=== PATIENT | female | born 1950 | race Caucasian/White ===

== ENCOUNTER 2017-03-30 02:40 | Inpatient (IN) ==
[2017-03-30] MEDS ORDERED: Ondansetron 4 MG/2 ML VIAL IVP ONE ×2 (02:58→05:45)
[2017-03-30] MEDS ORDERED: 0.9 % Sodium Chloride 1,000 ML IVC ONE ×2 (02:58→04:11)
[2017-03-30] MEDS ORDERED: *HR* HYDROmorphone (PF) 1 MG/ML SYRINGE IVP ONE ×2 (03:38→04:06)
[2017-03-30 03:42] LABS: Basophils # 0.1 K/mcL (0.0-0.2); Basophils % 0.4 %; Eosinophils # 0.2 K/mcL (0.0-0.6); Eosinophils % 1.3 %; Hematocrit 36.5 % (35.3-44.9); Hemoglobin 11.5 g/dL (11.5-15.4); Immature Granulocytes % 0.5 % (0-4); Lymphocytes # 0.7 K/mcL (0.6-4.6); Lymphocytes % 5.5 %; Mean Corpuscular HGB Conc 31.5 g/dL (31.6-35.5); Mean Corpuscular Hemoglobin 28.3 pg (28.0-33.3); Mean Corpuscular Volume 89.7 fL (83.0-100.0); Mean Platelet Volume 9.3 fL (9.4-12.4); Monocytes # 0.9 K/mcL (0.0-1.3); Neutrophils # 10.8 K/mcL (1.6-8.9); Platelet Count 387 K/mcL (140-400); Red Blood Count 4.07 M/mcL (3.82-4.97); Red Cell Distribution Width 13.9 % (11.5-14.5); Segmented Neutrophils % 85.3 %
[2017-03-30 03:54] LABS: Albumin 3.6 g/dL (3.5-5.0); Albumin/Globulin Ratio 0.9 (1.1-2.2); Bilirubin,Direct 0.2 mg/dL (0.0-0.5); Bilirubin,Indirect 0.4 mg/dL (0.0-1.2); Bilirubin,Total 0.6 mg/dL (0.2-1.2); Calcium 9.7 mg/dL (8.6-10.8); Potassium 4.5 mEq/L (3.5-4.5); Total Protein 7.6 g/dL (6.0-8.3)
--- NOTE | 2017-03-30 04:13 | Emergency Department Note ---
Disposition Clinical Impression: Sigmoid diverticulitis Disposition: Admitted As Inpatient Time of Disposition: 05:48 Abdominal Pain HPI - General Chief Complaint: ED Abdominal Pain Stated Complaint: diverticulitis was at [place] earlier Time Seen by Provider: 03/30/17 02:56 Source: patient Nursing Notes Reviewed: Yes Vital Signs Reviewed: Yes - History of Present Illness HPI Narrative: Patient has a past medical history of perforated diverticulitis, hypertension, hyperlipidemia, diabetes, cholecystectomy, partial hysterectomy presents to the emergency department with a few day history of worsening left lower quadrant pain that feels worse than her normal diverticulitis. She states that she has been very nauseous and has vomited some. Pt Subjective Complaint: abdominal pain Onset (ago): day(s) (2) Consistency: constant Location: LLQ, L flank Pain Severity: severe Pain Scale: 10 Quality: stabbing Migration to: L flank Improves with: nothing Worsens with: nothing Associated symptoms: Reports: nausea, vomiting - Related Data Home Medications Medication Instructions Recorded Confirmed Aspirin 81 mg PO DAILY 03/15/15 03/29/17 ClonazePAM [Klonopin] 1 mg PO BID 03/15/15 03/29/17 FLUoxetine HCl [PROzac] 40 mg PO DAILY 03/15/15 03/29/17 Fenofibrate [Tricor] 54 mg PO DAILY 03/15/15 03/29/17 Isosorbide MONOnitrate [Isosorbide 30 mg PO DAILY 03/15/15 03/29/17 Mononitrate] Levothyroxine [Synthroid] 150 mcg PO DAILY 03/15/15 03/29/17 Lisinopril [Zestril] 20 mg PO DAILY 03/15/15 03/29/17 Mesalamine [Pentasa] 1,000 mg PO QID 03/15/15 03/29/17 Metoprolol [Lopressor] 25 mg PO BID 03/15/15 03/29/17 Pantoprazole Sodium [Protonix] 40 mg PO DAILY 03/15/15 03/29/17 hydroCHLOROthiazide 25 mg PO DAILY 03/15/15 03/29/17 [Hydrochlorothiazide] Previous Rx's Medication Instructions Recorded Ciprofloxacin HCl [Cipro] 500 mg PO BID #20 tablet 03/29/17 HYDROcodone/Acet 5/325 mg [[place] 1 tab PO Q6H PRN #10 tab 03/29/17 5-325 mg] Ondansetron HCl [Zofran] 4 mg PO Q6HR PRN #8 tablet 03/29/17 Polyethylene Glycol 3350 [MiraLAX 1 scoop PO DAILY #510 gm 03/29/17 Powder Bulk 17.9 Oz] metroNIDAZOLE [Metronidazole] 500 mg PO TID #30 tablet 03/29/17 Allergies Allergy/AdvReac Type Severity Reaction Status Date / Time atorvastatin [From Lipitor] AdvReac See Verified 03/30/17 02:49 Comments All systems ED: reviewed and negative except as stated. Constitutional: Denies: fever, chills Cardiovascular: Reports: chest pain Respiratory: Denies: cough, dyspnea, wheezes Gastrointestinal: Reports: abdominal pain, nausea Genitourinary: Reports: frequency. Denies: urgency, dysuria, hematuria Musculoskeletal: Reports: back pain Integumentary: Denies: rash Abdominal Pain PMH - Past Medical History Medical history: Reports: arthritis, coronary artery disease, diabetes, hyperlipidemia, hypertension, myocardial infarction, thyroid disease, other Female Surgical History: Reports: cholecystectomy, hysterectomy, Tonsillectomy ACQUISITION ADVISOR history: Reports: no ACQUISITION ADVISOR history Psychiatric history: Reports: anxiety, depression - Social History Smoking status: Former smoker Alcohol use: Reports: none Drug use: Reports: none Physical Exam - General General appearance: alert, in no apparent distress - Head Head exam: atraumatic, normocephalic, normal inspection - Eye Eye exam: Absent: scleral icterus, conjunctival injection - ENT ENT exam: mucous membranes dry - Neck Neck exam: Present: trachea midline. Absent: tenderness, meningismus - Chest Chest inspection: Present: normal inspection, symmetric chest wall rise - Respiratory Respiratory exam: Present: normal lung sounds bilaterally. Absent: respiratory distress, accessory muscle use - Cardiovascular Cardiovascular exam: Present: regular rate, normal rhythm, normal heart sounds - Abdominal Exam Abdominal exam: Present: soft, tenderness Abdominal tenderness: Present: LLQ, moderate - Extremities Exam Extremities exam: Present: normal capillary refill - Neurological Exam Neurological exam: Present: alert, oriented X3 - Psychiatric Psychiatric exam: Present: normal affect, normal mood Course Course Narrative: This is a 66-year-old female who presents to the emergency department with pain that feels like her diverticulitis. She states that this is the most severe it has ever been before. At this time, there is concern for possible perforation since patient has had a perforation of her diverticulitis before. Patient is currently hemodynamically stable at this time. We will obtain a CT scan of the abdomen and pelvis. A CBC and BMP have been obtained. Also perform an EKG and obtain a troponin on this patient. - Reevaluation(s) Reevaluation #1: Patient has a leukocytosis 13.5. Her CT scan reveals sigmoid diverticulitis. At this time, because this patient failed outpatient management I think it is best to bring her in for intravenous antibiotics. Patient still having tenderness of her abdomen and severe pain. I will give her 4 more milligrams of IV morphine. She is having some nausea I will give her 4 more Zofran. I discussed the management of hospital admission with this patient and she agrees with the plan. Hospitalist has accepted this patient's admission. The patient is currently hemodynamically stable at this time. Abdomen/Pelvis CT 03/30/17 04:10 IMPRESSION: 1. Acute sigmoid diverticulitis. D/ / Tanner Arenas MD / Tanner Arenas MD Interpreting Provider: Tanner Arenas MD Chest X-Ray 03/30/17 04:15 IMPRESSION: 1. No acute cardiopulmonary disease. D/ / Tanner Arenas MD / Tanner Arenas MD Interpreting Provider: Tanner Arenas MD Vital Signs Temperature 98.2 F 03/30/17 02:44 Pulse Rate 85 03/30/17 02:44 Respiratory Rate 18 03/30/17 02:44 Blood Pressure 113/65 03/30/17 02:44 O2 Sat by Pulse Oximetry 03/30/17 02:44 Temperature 98.2 F 03/30/17 02:44 Pulse Rate 85 03/30/17 02:44 Respiratory Rate 18 03/30/17 02:44 Blood Pressure 113/65 03/30/17 02:44 O2 Sat by Pulse Oximetry 98 03/30/17 02:44 Oxygen Delivery Oxygen Delivery Room Air Time: 05:46 Vital Signs Temperature 98.2 F 03/30/17 02:44 Pulse Rate 85 03/30/17 02:44 Respiratory Rate 18 03/30/17 02:44 Blood Pressure 113/65 03/30/17 02:44 O2 Sat by Pulse Oximetry 98 03/30/17 02:44 Temperature 98.2 F 03/30/17 02:44 Pulse Rate 85 03/30/17 02:44 Respiratory Rate 18 03/30/17 02:44 Blood Pressure 113/65 03/30/17 02:44 O2 Sat by Pulse Oximetry 98 03/30/17 02:44 Oxygen Delivery Oxygen Delivery Room Air Abdominal Pain - Medical Records Medical records reviewed: Yes I reviewed the patient's medical records. - Lab Data Lab results reviewed: Yes I reviewed the patient's lab results. Result diagrams: 03/30/17 03:35 03/30/17 03:35 Lab Results 03/30/17 03/30/17 03/30/17 Range/Units 03:35 03:35 03:35 WBC 12.6 H (4.3-11.1) K/mcL RBC 4.07 (3.82-4.97) M/mcL Hgb 11.5 (11.5-15.4) g/dL Hct 36.5 (35.3-44.9) % MCV 89.7 (83.0-100.0) fL MCH 28.3 (28.0-33.3) pg MCHC 31.5 L (31.6-35.5) g/dL RDW 13.9 (11.5-14.5) % Plt Count 387 (140-400) K/mcL MPV 9.3 L (9.4-12.4) fL Immature Gran % 0.5 (0-4) % Seg Neutrophils % 85.3 % Lymphocytes % 5.5 % Monocytes % 7.0 % Eosinophils % 1.3 % Basophils % 0.4 % Neutrophils # 10.8 H (1.6-8.9) K/mcL Lymphocytes # 0.7 (0.6-4.6) K/mcL Monocytes # 0.9 (0.0-1.3) K/mcL Eosinophils # 0.2 (0.0-0.6) K/mcL Basophils # 0.1 (0.0-0.2) K/mcL Sodium 138 (136-145) mEq/L Potassium 4.5 (3.5-4.5) mEq/L Chloride 103 (98-109) mEq/L Carbon Dioxide 26 (19-29) mEq/L BUN 27 H (7-20) mg/dL Creatinine 1.57 H (0.57-1.11) mg/dL Est GFR ( Amer) 40 L (> 60) Est GFR (Non-Af Amer) 33 L (> 60) BUN/Creatinine Ratio 17 (6-26) Glucose 184 H (70-99) mg/dL Calculated Osmolality 296 (280-300) Calcium 9.7 (8.6-10.8) mg/dL Total Bilirubin 0.6 (0.2-1.2) mg/dL Direct Bilirubin 0.2 (0.0-0.5) mg/dL Indirect Bilirubin 0.4 (0.0-1.2) mg/dL AST 26 (5-34) Units/L ALT 22 (0-55) Units/L Alkaline Phosphatase 64 (38-126) Units/L Troponin I 0.01 (0-0.03) ng/mL Serum Total Protein 7.6 (6.0-8.3) g/dL Albumin 3.6 (3.5-5.0) g/dL Globulin 4.0 H (2.4-3.5) g/dL Albumin/Globulin Ratio 0.9 L (1.1-2.2) Lipase 42 (8-78) Units/L - Radiology Data Radiology results reviewed: Yes I reviewed the patient's radiology results. - EKG Data EKG attestation: Yes I reviewed and interpreted this EKG. EKG results narrative: 03/30/2017 5:01 Ventricular rate 79 bpm, WA interval 181 ms, QRS duration 89 ms, QT 397 ms, QTC 432 ms, normal axis. Sinus rhythm with a ventricular rate of 79 bpm. There are no signs of ischemic ST changes when compared to an EKG performed on 03/15/2015. Attestation Statement - Attestation Attestation: I, Guido Felton MD, personally evaluated this patient and discussed their management with the resident physician. I reviewed the resident's note and agree with the documented findings, medical decision making, and plan of care. 66-year-old female presents to the emergency department with a complaint of left -sided abdominal pain secondary to diverticulitis. She has a prior history of diverticulitis including a perforation. She complains of left abdominal pain which started a few days ago. She was seen yesterday at [place] emergency department and had lab work. She did not have a CT scan that was diagnosed with diverticulitis clinically. She was started on Cipro and Flagyl. She presents here tonight complaining of increased pain. Nausea but no vomiting. No diarrhea. No GI bleed. Subjective fever. Patient states this is the worst episode of pain she has ever had with her diverticulitis. On examination patient is a well-developed obese elderly female in no acute distress. She is alert and oriented 3. There is no cyanosis or diaphoresis. Patient does appear to be in moderate discomfort. Breath sounds are clear and equal bilaterally. Heart regular rate and rhythm. Soft with normal bowel sounds. There is moderate left-sided abdominal tenderness. Mild guarding. No rebound tenderness. No CVA tenderness. Labs reviewed. WBC increased from yesterday. CT shows acute sigmoid diverticulitis. The hospitalist, Dr. Novoa, was consulted and accepted admission of the patient.
[2017-03-30] MEDS ORDERED: MetroNIDAZOLE 500 MG/100 ML 500 MG/100 ML BAG IVPB ONE (05:12)
[2017-03-30] MEDS ORDERED: *HR* Morphine 2 MG/ML SYRINGE IVP ONE (05:45)
[2017-03-30 06:06] LABS: Bilirubin,Urine Negative (Negative); Blood,Urine Negative (Negative); Clarity,Urine Clear (Clear); Color,Urine Dark Yellow (Yellow); Glucose,Urine (UA) Normal (Normal); Ketones,Urine Negative (Negative); Leukocyte Esterase,Urine Trace (Negative); Nitrite,Urine Negative (Negative); PH,Urine 5.5 pH Units (5.0-8.0); Protein,Urine Negative (Neg-Trace); Specific Gravity,Urine 1.023 (1.010-1.025); Urobilinogen,Urine Normal (Normal)
[2017-03-30 06:07] LABS: Bacteria,Urine None Seen per hpf (None-Few); Hyaline Casts,Urine None Seen per lpf (None-Few); RBC,Urine 0-3 per hpf (0-3); Squamous Epithelial Cell,Urine Many per lpf (None-Few); WBC,Urine 0-3 per hpf (0-3)
[2017-03-30] MEDS ORDERED: Ondansetron 4 MG/2 ML VIAL IVP PRN (08:22)
[2017-03-30] MEDS ORDERED: Naloxone 0.4 MG/ML INJ IVP PRN (08:22)
[2017-03-30] MEDS ORDERED: 0.9 % Sodium Chloride 1,000 ML IVC SCH (08:30)
[2017-03-30] MEDS: *HR* Morphine 2 MG/ML SYRINGE IVP PRN ×2 (09:45→15:38)
--- NOTE | 2017-03-30 10:25 | Internal Med History&Physical ---
Date of Encounter: 03/30/17 Time of Encounter: 08:00 Assessment and Plan (1) Sigmoid diverticulitis Current visit: Yes Status: Acute Patient Shadi 1 of IV Cipro and IV Flagyl. Pain control as needed. Nothing by mouth for now. 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: without prison use Qualified Code(s): E11.9 - Type 2 diabetes mellitus without complications (3) Crohns disease Current visit: Yes Status: Acute On chronic mesalamine therapy Qualifiers: Gastrointestinal tract location: unspecified location Digestive disease complication type: unspecified complication Qualified Code(s): K50.919 - Crohn 's disease, unspecified, with unspecified complications (4) Hypertension Current visit: Yes Status: Acute Stable, monitored Qualifiers: Hypertension type: essential hypertension Qualified Code(s): I10 - Essential (primary) hypertension (5) Hypothyroidism Current visit: Yes Status: Acute Continue Synthroid Qualifiers: Hypothyroidism type: unspecified Qualified Code(s): E03.9 - Hypothyroidism , unspecified Internal Medicine - H&P: HPI Admitted From: Emergency Dept Plans for Post Hospital Care: Home History of present illness: Ms. Marks is a 66 year old female with a past medical history of recurrent sigmoid diverticulitis, history of per. Last episode 3 months ago. Managed as outpatient. She also has a history of Crohn's disease for which she is on mesalamine, followed by . Patient also has a history of coronary disease , diabetes mellitus type 2, hypertension, hyperlipidemia, hypothyroidism. Patient presents with a 1 day history of left lower quadrant pain consistent with previous episodes of diverticulitis. She denies any fevers or chills. No chest pain or shortness of breath. She has had some nausea but no vomiting. She had 2 loose stools yesterday. She presented to the emergency department where she was noted to be hemodynamically stable and afebrile. White blood cell count elevated at 12.6. BUN/creatinine of 27 over 1.57. She had markedly tenderness in the left lower quadrant. CT scan consistent with sigmoid diverticulitis. Past Med Surg Social Fam HX - Past Medical History Medical history: arthritis, coronary artery disease, diabetes, hyperlipidemia, hypertension, myocardial infarction, thyroid disease, other Psychiatric history: anxiety, depression - Past Surgical History Surgical History: cholecystectomy, hysterectomy - Social History Smoking Status: Former smoker Packs per day: Quit 25 years ago Smokeless Tobacco Status: No Alcohol use: none Drug use: none Current living situation: Home Activity Level: Independent ambulation Recent Out of Country Travel Within the Last 8 Weeks: No Exposure or Possible Exposure to Illness During Travel: No Internal Medicine - H&P: Meds Aspirin 81 mg PO DAILY 03/15/15 [History] ClonazePAM [Klonopin] 1 mg PO BID 03/15/15 [History] FLUoxetine HCl [PROzac] 40 mg PO DAILY 03/15/15 [History] Fenofibrate [Tricor] 54 mg PO DAILY 03/15/15 [History] Isosorbide MONOnitrate [Isosorbide Mononitrate] 30 mg PO DAILY 03/15/15 [History ] Levothyroxine [Synthroid] 150 mcg PO DAILY 03/15/15 [History] Lisinopril [Zestril] 20 mg PO DAILY 03/15/15 [History] Mesalamine [Pentasa] 1,000 mg PO QID 03/15/15 [History] Metoprolol [Lopressor] 25 mg PO BID 03/15/15 [History] Pantoprazole Sodium [Protonix] 40 mg PO DAILY 03/15/15 [History] hydroCHLOROthiazide [Hydrochlorothiazide] 25 mg PO DAILY 03/15/15 [History] Ciprofloxacin HCl [Cipro] 500 mg PO BID #20 tablet 03/29/17 [Rx] HYDROcodone/Acet 5/325 mg [[place] 5-325 mg] 1 tab PO Q6H PRN #10 tab 03/29/17 [Rx ] Ondansetron HCl [Zofran] 4 mg PO Q6HR PRN #8 tablet 03/29/17 [Rx] Polyethylene Glycol 3350 [MiraLAX Powder Bulk 17.9 Oz] 1 scoop PO DAILY #510 gm 03/29/17 [Rx] metroNIDAZOLE [Metronidazole] 500 mg PO TID #30 tablet 03/29/17 [Rx] 3 Allergy/AdvReac Type Severity Reaction Status Date / Time atorvastatin [From Lipitor] AdvReac See Verified 03/30/17 02:49 Comments All Systems PM: A 10-system review of systems was performed and is negative for pertinent findings except as documented above in the HPI. - Constitutional Vitals: Temp Pulse Resp BP Pulse Ox 99.1 F 77 15 134/69 92 03/30/17 07:21 03/30/17 07:21 03/30/17 07:21 03/30/17 07:21 03/30/17 07:59 General appearance: Present: A&O X 3, no acute distress - Head Head exam: Present: atraumatic, normocephalic - Eye Eye exam: Present: PERRL, conjuntiva pink, sclera anicteric Pupils: Present: PERRL - Neck Neck exam general surgery: Present: supple, trachea midline. Absent: lymphadenopathy - Respiratory Respiratory exam: Present: CTAB. Absent: accessory muscle use, rales, rhonchi, wheezes - Cardiovascular Cardiovascular exam: Present: RRR, +S1, +S2. Absent: diastolic murmur, gallop, rubs, systolic murmur - GI/Abdominal GI/Abdominal exam: Present: normal bowel sounds, soft, tenderness (Patient with exquisite tenderness in the left lower quadrant). Absent: distended - Extremities Exam Extremities exam: Present: warm, radial pulses palpable and symmetrical. Absent : calf tenderness, cyanotic, pedal edema - Neurological Exam Neurological exam: Present: CN II-XII intact, oriented X3, no focal deficits. Absent: pronater drift, facial droop, speech deficit - Skin Skin exam: Present: dry, intact Internal Med - H&P Results - Labs CBC & Chem 7: 03/30/17 03:35 03/30/17 03:35
[2017-03-30] MEDS ORDERED: Dextrose Gel 15 GM PO PRN ×2 (10:36)
[2017-03-30] MEDS ORDERED: *HR* Dextrose 50 % in Water (Syg) 50 ML SYRINGE IVP PRN (10:36)
[2017-03-30] MEDS ORDERED: D5% in Water 1,000 ML IVC PRN (10:36)
[2017-03-30] MEDS ORDERED: Ondansetron 4 MG/2 ML VIAL IM STA (10:44)
--- NOTE | 2017-03-30 10:44 | Gastroenterology Consult Note ---
<Iona Chakraborty - Last Filed: 03/30/17 11:14> Date of Encounter: 03/30/17 Time of Encounter: 10:49 - Assessment and plan (1) Sigmoid diverticulitis Status: Acute Assessment and plan: CT A/P consistent with sigmoid diverticulitis. Patient has had a total of about 4-5 episodes of diverticulitis Her last episode was 3 months ago. Plan: continue IV hydration and pain management per primary team. continue conservative management at this time with cipro and flagyl. patient will need outpatient follow up with Dr. Mendoza for further colonoscopy and possible referral to surgery. (2) Abdominal pain Status: Acute Assessment and plan: plan as above. Qualifiers: Abdominal location: left lower quadrant Qualified Code(s): R10.32 - Left lower quadrant pain (3) Crohns disease Status: Acute Assessment and plan: folllows with Dr. Mendoza outpatient. Patient takes Mesalamine at home. Colonoscopy 04/26/15, showed two small ulcers 1-2 mm in size in cecum and on on the other side of the IC valve. Few scattered small ulcers in the TI. Biopsy of the TI showed chronic mild active ileitis. Biopsy of the ileocecal valve as well as cecum, showed mild active colitis. Qualifiers: Gastrointestinal tract location: unspecified location Digestive disease complication type: unspecified complication Qualified Code(s): K50.919 - Crohn 's disease, unspecified, with unspecified complications - Time Spent With Patient Total time spent is greater than 50% in coordination of care (as documented) at patient's floor/unit and/or counseling patient: GI History of Present Illness - Data of Consult Patient: known to practice within the last 3 years Consult date: 03/30/17 Requesting Physician: Crystal Murphy MD - Consult Narrative Reason for consult: diverticulitis. History of present illness: Ms. Marks is a 66 year old female with PMHx of recurrent sigmoid diverticulitis with history of perforation, chrons disease (follows with Dr. Mendoza ), CAD, DMII, HTN, HLD, hypothyroidism. karon arrived to [facility] with chief complaint of LLQ pain radiating to the lower back that is very similar in character to her prior episodes of diverticulitis. she also reports associated nausea without vomiting. she admits to two episodes of diarrhea yesterday. no blood in her urine or stool, no melena. she admits to mild chest pain, denies shortness of breath, fever, chills. she had about 4-5 total episodes of diverticulitis throughout her life. Her episode of diverticulitis with perforation was about 1 year ago but she did not have any surgery done at that time and was managed conservatively. Past Med Surg Social Fam HX - Past Medical History Medical history: arthritis, coronary artery disease, diabetes, hyperlipidemia, hypertension, myocardial infarction, thyroid disease, other Psychiatric history: anxiety, depression - Past Surgical History Surgical History: cholecystectomy, hysterectomy - Social History Smoking Status: Former smoker Packs per day: Quit 25 years ago Smokeless Tobacco Status: No Alcohol use: none Drug use: none All systems PM: reviewed and no additional remarkable complaints except as stated - Constitutional Vitals: Temp Pulse Resp BP Pulse Ox 99.1 F 77 15 134/69 92 03/30/17 07:21 03/30/17 07:21 03/30/17 07:21 03/30/17 07:21 03/30/17 07:59 General appearance: Present: mild distress, A&O X 3, pleasant, answers questions appropriately - Head Head exam: Present: atraumatic, normocephalic - Neck Neck exam general surgery: Present: supple, trachea midline - Respiratory Respiratory exam: Present: CTAB - Cardiovascular Cardiovascular exam: Present: RRR, +S1, +S2 - GI/Abdominal GI/Abdominal exam: Present: distended, soft, tenderness Additional comments: severe left lower quadrant tenderness to palpation. - Extremities Exam Extremities exam: Absent: cyanotic, pedal edema - Neurological Exam Neurological exam: Present: alert, oriented X3, no focal deficits - Psychiatric Psychiatric exam: Present: normal affect, normal mood Results - Labs CBC & Chem 7: 03/30/17 03:35 03/30/17 03:35 Labs: Last Result Calcium 9.7 mg/dL (8.6-10.8) 03/30/17 03:35 Troponin I 0.01 ng/mL (0-0.03) 03/30/17 03:35 Entire Visit Hgb 11.5 g/dL (11.5-15.4) 03/30/17 03:35 Hct 36.5 % (35.3-44.9) 03/30/17 03:35 Total Bilirubin 0.6 mg/dL (0.2-1.2) 03/30/17 03:35 AST 26 Units/L (5-34) 03/30/17 03:35 ALT 22 Units/L (0-55) 03/30/17 03:35 Lipase 42 Units/L (8-78) 03/30/17 03:35 Consult Discharge Plan - Plan Instructions: Ciprofloxacin (By mouth), Metronidazole (By mouth) Additional Instructions: F/up with PCP in 1-2 weeks F/up with /[facility] in 3-4 weeks Referrals: Lakisha James, FRAMING SPECIALIST [Non-Partnered Physician] - 04/09/17 10:30 am NONE,PCP [Primary Care Provider] - Prescriptions: Ciprofloxacin HCl [Cipro] 500 mg PO BID #20 tablet metroNIDAZOLE [Metronidazole] 500 mg PO TID #30 tablet <Foster Bautista - Last Filed: 04/09/17 16:07> Date of Encounter: 04/09/17 - Time Spent With Patient Total time spent is greater than 50% in coordination of care (as documented) at patient's floor/unit and/or counseling patient: GI History of Present Illness - Data of Consult Requesting Physician: Meredith Martínez MD - Consult Narrative History of present illness: Ms. Marks is a 66 year old female - Constitutional Vitals: Temp Pulse Resp BP Pulse Ox 97.9 F 55 16 123/57 93 04/03/17 11:30 04/03/17 11:30 04/03/17 11:30 04/03/17 11:30 04/03/17 11:30 Results - Labs CBC & Chem 7: 04/03/17 05:56 04/03/17 05:56 Labs: Last Result Calcium 9.5 mg/dL (8.6-10.8) 04/03/17 05:56 Troponin I 0.01 ng/mL (0-0.03) 03/30/17 03:35 Entire Visit Hgb 10.4 g/dL (11.5-15.4) L 04/03/17 05:56 Hct 32.5 % (35.3-44.9) L 04/03/17 05:56 Total Bilirubin 0.6 mg/dL (0.2-1.2) 03/30/17 03:35 AST 26 Units/L (5-34) 03/30/17 03:35 ALT 22 Units/L (0-55) 03/30/17 03:35 Lipase 42 Units/L (8-78) 03/30/17 03:35 - Attending Attestation I have personally examined and interviewed Ms. Marks and agree with above assessment. Patient has acute uncomplicated acute diverticulitis. She has had 5 episodes in the last 2 years and discussed with her regarding possibility of a limited sigmoid resection after she returns for a colonoscopy with us.
[2017-03-30] MEDS: 0.9 % Sodium Chloride 1,000 ML IVC SCH ×2 (12:28→22:18)
[2017-03-30] MEDS: *HR* HYDROmorphone (PF) 1 MG/ML SYRINGE IVP PRN ×2 (13:04→22:18)
[2017-03-30] MEDS: Insulin LISPRO 300 UNITS/3 ML VIAL SQ SCH ×2 (13:11→18:15)
[2017-03-30] MEDS: Mesalamine 250 MG CAPSULE.ER PO SCH ×3 (13:15→22:12)
[2017-03-30] MEDS: MetroNIDAZOLE 500 MG/100 ML 500 MG/100 ML BAG IVPB SCH ×2 (14:14→22:12)
[2017-03-30] MEDS: Ondansetron 4 MG/2 ML VIAL IVP PRN (19:36)
[2017-03-30] MEDS: clonazePAM 1 MG TABLET PO SCH (22:12)
[2017-03-31] MEDS: Insulin LISPRO 300 UNITS/3 ML VIAL SQ SCH ×5 (00:46→21:13)
[2017-03-31] MEDS: *HR* HYDROmorphone (PF) 1 MG/ML SYRINGE IVP PRN ×2 (03:06→23:16)
[2017-03-31] MEDS: Ondansetron 4 MG/2 ML VIAL IVP PRN ×2 (03:06→09:47)
[2017-03-31 04:06] LABS: Basophils % 0.3 %; Eosinophils # 0.2 K/mcL (0.0-0.6); Eosinophils % 1.8 %; Hemoglobin 10.2 g/dL (11.5-15.4); Immature Granulocytes % 0.4 % (0-4); Lymphocytes % 10.8 %; Mean Corpuscular HGB Conc 30.9 g/dL (31.6-35.5); Mean Corpuscular Hemoglobin 27.7 pg (28.0-33.3); Mean Corpuscular Volume 89.7 fL (83.0-100.0); Mean Platelet Volume 9.6 fL (9.4-12.4); Monocytes # 0.9 K/mcL (0.0-1.3); Monocytes % 9.7 %; Neutrophils # 7.3 K/mcL (1.6-8.9); Platelet Count 352 K/mcL (140-400); Red Blood Count 3.68 M/mcL (3.82-4.97); Red Cell Distribution Width 13.7 % (11.5-14.5)
[2017-03-31 04:21] LABS: Calcium 8.7 mg/dL (8.6-10.8); Potassium 4.2 mEq/L (3.5-4.5)
[2017-03-31] MEDS: MetroNIDAZOLE 500 MG/100 ML 500 MG/100 ML BAG IVPB SCH ×3 (05:50→21:17)
[2017-03-31] MEDS ORDERED: Polyethylene Glycol 3350 255 GM POWDER PO SCH (09:00)
[2017-03-31] MEDS: *HR* Morphine 2 MG/ML SYRINGE IVP PRN ×2 (09:50→14:23)
[2017-03-31] MEDS: 0.9 % Sodium Chloride 1,000 ML IVC SCH (09:52)
[2017-03-31 09:54] LABS: Hemoglobin A1C 7.2 %
[2017-03-31] MEDS: FLUoxetine 20 MG CAPSULE PO SCH (11:47)
[2017-03-31] MEDS: Fenofibrate 54 MG TABLET PO SCH (11:47)
[2017-03-31] MEDS: Mesalamine 250 MG CAPSULE.ER PO SCH ×4 (11:47→21:05)
[2017-03-31] MEDS: clonazePAM 1 MG TABLET PO SCH ×2 (11:47→21:05)
[2017-03-31] MEDS: Isosorbide MONOnitrate (24 HR) 30 MG TAB.ER.24H PO SCH (11:47)
[2017-03-31] MEDS: Aspirin 81 MG TAB.CHEW PO SCH (11:48)
[2017-03-31] MEDS ORDERED: 0.9 % Sodium Chloride 1,000 ML IVC SCH (14:35)
--- NOTE | 2017-03-31 14:39 | Internal Med Progress Note ---
Date of Encounter: 03/31/17 Time of Encounter: 14:36 - Assessment and plan (1) Sigmoid diverticulitis Current Visit: Yes Status: Acute Assessment and plan: Abd pain secondary to acute diverticulitis continue IV abx iV fluids with caution given history of CHF pain control will start with clear liquid diet GI consultation appreciated-outpatient follow up recommended (2) UTI (urinary tract infection) Current Visit: Yes Status: Acute Assessment and plan: Urine culture preliminary positive for gram negative yves will continue IV abx will follow up official culture report. Qualifiers: Urinary tract infection type: site unspecified Hematuria presence: without hematuria Qualified Code(s): N39.0 - Urinary tract infection, site not specified (3) Pdesu-gv-igmnoaa kidney injury Current Visit: Yes Status: Acute Assessment and plan: Renal function improved from previous day continue to hold lisinopril and hydrochlorothiazide avoid nephrotoxic agents will closely monitor renal function Qualifiers: Acute renal failure type: unspecified Chronic kidney disease stage: unspecified stage Qualified Code(s): N17.9 - Acute kidney failure, unspecified ; N18.9 - Chronic kidney disease, unspecified (4) CHF (congestive heart failure) Current Visit: Yes Status: Acute Assessment and plan: no signs of acute exacerbation will closely monitor for volume overload continue home medications Qualifiers: Congestive heart failure type: diastolic Congestive heart failure chronicity: chronic Qualified Code(s): I50.32 - Chronic diastolic (congestive ) heart failure (5) Crohns disease Current Visit: Yes Status: Chronic Assessment and plan: continue home medications Qualifiers: Gastrointestinal tract location: unspecified location Digestive disease complication type: unspecified complication Qualified Code(s): K50.919 - Crohn 's disease, unspecified, with unspecified complications (6) Hypertension Current Visit: Yes Status: Chronic Assessment and plan: BP within acceptable range despite holding Lisinopril and HCTZ continue Metoprolol will continue to closely monitor BP Qualifiers: Hypertension type: essential hypertension Qualified Code(s): I10 - Essential (primary) hypertension (7) Hypothyroidism Current Visit: Yes Status: Chronic Assessment and plan: continue home dose of levothyroxine Qualifiers: Hypothyroidism type: unspecified Qualified Code(s): E03.9 - Hypothyroidism , unspecified (8) DVT prophylaxis Current Visit: Yes Status: Acute Assessment and plan: Heparin SQ (9) Morbid obesity with BMI of 40.0-44.9, adult Current Visit: Yes Status: Acute - Subjective Interval history: Patient seen and examined at bedside. Resting in bed and reports of feeling mildly better compared to previous day. Reports of being hungry and would like to start a diet. Denies any nausea and vomiting. No overnight events reported. - Constitutional Vitals: Temp Pulse Resp BP Pulse Ox 98.6 F 65 13 129/56 91 03/31/17 12:13 03/31/17 12:13 03/31/17 12:13 03/31/17 12:13 03/31/17 12:13 General appearance: Present: A&O X 3, morbidly obese, no acute distress, answers questions appropriately - Head Head exam: Present: atraumatic, normocephalic - Eye Eye exam: Present: conjuntiva pink, sclera anicteric - Respiratory Respiratory exam: Present: CTAB. Absent: accessory muscle use, rales, rhonchi, wheezes - Cardiovascular Cardiovascular exam: Present: RRR, +S1, +S2. Absent: diastolic murmur, gallop, rubs, systolic murmur - GI/Abdominal GI/Abdominal exam: Present: distended (obese), normal bowel sounds, soft, tenderness (LLQ tenderness to palapation ), no peritoneal signs - Extremities Exam Extremities exam: Present: warm, radial pulses palpable and symmetrical. Absent : calf tenderness, cyanotic, pedal edema - Neurological Exam Neurological exam: Present: alert, oriented X3 - Psychiatric Psychiatric exam: Present: normal affect, normal mood Internal Medicine: Result - Labs CBC & Chem 7: 03/31/17 03:46 03/31/17 03:46 Labs: Short CBC 03/31/17 Range/Units 03:46 WBC 9.5 (4.3-11.1) K/mcL Hgb 10.2 L (11.5-15.4) g/dL Hct 33.0 L (35.3-44.9) % Plt Count 352 (140-400) K/mcL Neutrophils # 7.3 (1.6-8.9) K/mcL BMP 03/31/17 03:46 Sodium 138 Potassium 4.2 Chloride 107 Carbon Dioxide 23 BUN 15 D Creatinine 1.18 H Glucose 122 H Calcium 8.7 Consult Discharge Plan - Plan Referrals: NONE,PCP [Primary Care Provider] -
[2017-03-31] MEDS: *HR* Heparin 5,000 UNIT/ML VIAL SQ SCH (17:26)
[2017-03-31] MEDS: *HR* HYDROcodone/Acet 7.5/325 mg TABLET PO PRN (21:05)
[2017-04-01] MEDS: *HR* HYDROmorphone (PF) 1 MG/ML SYRINGE IVP PRN ×5 (02:27→20:13)
[2017-04-01] MEDS: *HR* Heparin 5,000 UNIT/ML VIAL SQ SCH ×2 (06:00→17:07)
[2017-04-01] MEDS: MetroNIDAZOLE 500 MG/100 ML 500 MG/100 ML BAG IVPB SCH ×3 (06:00→20:14)
[2017-04-01 07:15] LABS: Basophils % 0.3 %; Eosinophils # 0.2 K/mcL (0.0-0.6); Eosinophils % 2.4 %; Hematocrit 32.5 % (35.3-44.9); Hemoglobin 9.9 g/dL (11.5-15.4); Immature Granulocytes % 0.3 % (0-4); Lymphocytes # 0.9 K/mcL (0.6-4.6); Magnesium 1.7 mg/dL (1.6-2.6); Mean Corpuscular HGB Conc 30.5 g/dL (31.6-35.5); Mean Corpuscular Volume 92.1 fL (83.0-100.0); Monocytes # 0.6 K/mcL (0.0-1.3); Monocytes % 8.6 %; Neutrophils # 4.9 K/mcL (1.6-8.9); Phosphorous 2.2 mg/dL (2.3-4.7); Platelet Count 225 K/mcL (140-400); Potassium 4.2 mEq/L (3.5-4.5); Red Blood Count 3.53 M/mcL (3.82-4.97); Red Cell Distribution Width 13.7 % (11.5-14.5); Segmented Neutrophils % 75.4 %
[2017-04-01] MEDS: Insulin LISPRO 300 UNITS/3 ML VIAL SQ SCH ×4 (08:27→20:25)
[2017-04-01] MEDS: clonazePAM 1 MG TABLET PO SCH ×2 (09:33→20:14)
[2017-04-01] MEDS: FLUoxetine 20 MG CAPSULE PO SCH (09:33)
[2017-04-01] MEDS: Mesalamine 250 MG CAPSULE.ER PO SCH ×4 (09:33→20:13)
[2017-04-01] MEDS: Isosorbide MONOnitrate (24 HR) 30 MG TAB.ER.24H PO SCH (09:33)
[2017-04-01] MEDS: Fenofibrate 54 MG TABLET PO SCH (09:34)
[2017-04-01] MEDS: Aspirin 81 MG TAB.CHEW PO SCH (09:34)
--- NOTE | 2017-04-01 13:55 | Internal Med Progress Note ---
Date of Encounter: 04/01/17 Time of Encounter: 13:53 - Assessment and plan (1) Sigmoid diverticulitis Current Visit: Yes Status: Acute Assessment and plan: Abd pain secondary to acute diverticulitis continue IV abx d/c IV fluids as pt is tolerating clear liquid diet will advance diet as tolerated pain control GI consultation appreciated-outpatient follow up recommended Code(s): K57.32 - Diverticulitis of large intestine without perforation or abscess without bleeding (2) UTI (urinary tract infection) Current Visit: Yes Status: Acute Assessment and plan: Urine culture: Proteus Mirablis will continue IV abx Qualifiers: Urinary tract infection type: site unspecified Hematuria presence: without hematuria Qualified Code(s): N39.0 - Urinary tract infection, site not specified (3) Nnkhx-ln-qinvfru kidney injury Current Visit: Yes Status: Acute Assessment and plan: Renal function improved from previous day continue to hold lisinopril and hydrochlorothiazide avoid nephrotoxic agents will closely monitor renal function Qualifiers: Acute renal failure type: unspecified Chronic kidney disease stage: unspecified stage Qualified Code(s): N17.9 - Acute kidney failure, unspecified ; N18.9 - Chronic kidney disease, unspecified (4) CHF (congestive heart failure) Current Visit: Yes Status: Acute Assessment and plan: no signs of acute exacerbation continue home medications Qualifiers: Congestive heart failure type: diastolic Congestive heart failure chronicity: chronic Qualified Code(s): I50.32 - Chronic diastolic (congestive ) heart failure (5) Crohns disease Current Visit: Yes Status: Chronic Assessment and plan: continue home medications Qualifiers: Gastrointestinal tract location: unspecified location Digestive disease complication type: unspecified complication Qualified Code(s): K50.919 - Crohn 's disease, unspecified, with unspecified complications (6) Hypertension Current Visit: Yes Status: Chronic Assessment and plan: BP within acceptable range despite holding Lisinopril and HCTZ continue Metoprolol will continue to closely monitor BP Qualifiers: Hypertension type: essential hypertension Qualified Code(s): I10 - Essential (primary) hypertension (7) Hypothyroidism Current Visit: Yes Status: Chronic Assessment and plan: continue home dose of levothyroxine Qualifiers: Hypothyroidism type: unspecified Qualified Code(s): E03.9 - Hypothyroidism , unspecified (8) DVT prophylaxis Current Visit: Yes Status: Acute Assessment and plan: Heparin SQ (9) Morbid obesity with BMI of 40.0-44.9, adult Current Visit: Yes Status: Chronic (10) Electrolyte abnormality Current Visit: Yes Status: Acute Assessment and plan: Hypophosphatemia Phos supplemented continue to monitor electrolytes and supplement as needed - Subjective Interval history: Patient seen and examined at bedside. Patient resting in bed and reports of feeling better compared to previous day. - Constitutional Vitals: Temp Pulse Resp BP Pulse Ox 97.5 F L 63 15 114/67 96 04/01/17 08:15 04/01/17 08:15 04/01/17 08:15 04/01/17 08:15 04/01/17 09:30 General appearance: Present: A&O X 3, morbidly obese, no acute distress, answers questions appropriately - Head Head exam: Present: atraumatic, normocephalic - Eye Eye exam: Present: conjuntiva pink, sclera anicteric - Respiratory Respiratory exam: Present: CTAB. Absent: respiratory distress, wheezes, tachypnea - Cardiovascular Cardiovascular exam: Present: RRR, +S1, +S2. Absent: diastolic murmur, gallop, rubs, systolic murmur - GI/Abdominal GI/Abdominal exam: Present: distended (pannus), normal bowel sounds, soft, tenderness (mild LLQ tenderness upon palpation ). Absent: guarding, rebound - Extremities Exam Extremities exam: Present: warm, radial pulses palpable and symmetrical. Absent : calf tenderness - Neurological Exam Neurological exam: Present: alert, oriented X3 - Psychiatric Psychiatric exam: Present: normal affect, normal mood Internal Medicine: Result - Labs CBC & Chem 7: 04/01/17 06:45 04/01/17 06:45 Labs: Short CBC 04/01/17 Range/Units 06:45 WBC 6.5 (4.3-11.1) K/mcL Hgb 9.9 L (11.5-15.4) g/dL Hct 32.5 L (35.3-44.9) % Plt Count 225 (140-400) K/mcL Neutrophils # 4.9 (1.6-8.9) K/mcL BMP 04/01/17 06:45 Sodium 135 L Potassium 4.2 Chloride 106 Carbon Dioxide 23 BUN 13 Creatinine 1.13 H Glucose 136 H Calcium 9.0 Consult Discharge Plan - Plan Referrals: NONE,PCP [Primary Care Provider] -
[2017-04-02] MEDS: *HR* HYDROcodone/Acet 7.5/325 mg TABLET PO PRN ×3 (01:58→21:56)
[2017-04-02] MEDS: *HR* HYDROmorphone (PF) 1 MG/ML SYRINGE IVP PRN ×4 (04:39→13:55)
[2017-04-02] MEDS: Ondansetron 4 MG/2 ML VIAL IVP PRN (04:47)
[2017-04-02] MEDS: MetroNIDAZOLE 500 MG/100 ML 500 MG/100 ML BAG IVPB SCH ×3 (05:37→21:44)
[2017-04-02] MEDS: *HR* Heparin 5,000 UNIT/ML VIAL SQ SCH ×2 (05:38→17:06)
[2017-04-02] MEDS: Mesalamine 250 MG CAPSULE.ER PO SCH ×4 (07:50→21:39)
[2017-04-02] MEDS: Fenofibrate 54 MG TABLET PO SCH (07:50)
[2017-04-02] MEDS: clonazePAM 1 MG TABLET PO SCH ×2 (07:50→21:38)
[2017-04-02] MEDS: Insulin LISPRO 300 UNITS/3 ML VIAL SQ SCH ×4 (07:50→21:39)
[2017-04-02] MEDS: FLUoxetine 20 MG CAPSULE PO SCH (07:50)
[2017-04-02] MEDS: Aspirin 81 MG TAB.CHEW PO SCH (07:50)
[2017-04-02] MEDS: Isosorbide MONOnitrate (24 HR) 30 MG TAB.ER.24H PO SCH (07:50)
[2017-04-02 08:05] LABS: Basophils % 0.6 %; Eosinophils # 0.2 K/mcL (0.0-0.6); Eosinophils % 3.2 %; Hematocrit 30.2 % (35.3-44.9); Hemoglobin 9.3 g/dL (11.5-15.4); Immature Granulocytes % 0.6 % (0-4); Lymphocytes # 0.7 K/mcL (0.6-4.6); Lymphocytes % 14.5 %; Mean Corpuscular HGB Conc 30.8 g/dL (31.6-35.5); Mean Corpuscular Hemoglobin 27.4 pg (28.0-33.3); Mean Corpuscular Volume 88.8 fL (83.0-100.0); Monocytes # 0.5 K/mcL (0.0-1.3); Monocytes % 9.2 %; Neutrophils # 3.6 K/mcL (1.6-8.9); Platelet Count 352 K/mcL (140-400); Red Cell Distribution Width 13.7 % (11.5-14.5); Segmented Neutrophils % 71.9 %
[2017-04-02 10:28] LABS: Calcium 9.2 mg/dL (8.6-10.8); Magnesium 1.7 mg/dL (1.6-2.6); Phosphorous 2.3 mg/dL (2.3-4.7); Potassium 4.3 mEq/L (3.5-4.5)
--- NOTE | 2017-04-02 16:34 | Internal Med Progress Note ---
Date of Encounter: 04/02/17 Time of Encounter: 16:32 - Assessment and plan (1) Sigmoid diverticulitis Current Visit: Yes Status: Acute Assessment and plan: Abd pain secondary to acute diverticulitis continue IV abx advance diet as tolerated pain control GI consultation appreciated-outpatient follow up recommended Code(s): K57.32 - Diverticulitis of large intestine without perforation or abscess without bleeding (2) UTI (urinary tract infection) Current Visit: Yes Status: Acute Assessment and plan: Urine culture: Proteus Mirablis will continue IV abx Qualifiers: Urinary tract infection type: site unspecified Hematuria presence: without hematuria Qualified Code(s): N39.0 - Urinary tract infection, site not specified (3) Mhuaq-pa-zfckukz kidney injury Current Visit: Yes Status: Resolved Assessment and plan: Renal function back to baseline continue to hold lisinopril and hydrochlorothiazide as BP is within acceptable range despite holding antihypertensive medications avoid nephrotoxic agents will closely monitor renal function Qualifiers: Acute renal failure type: unspecified Chronic kidney disease stage: unspecified stage Qualified Code(s): N17.9 - Acute kidney failure, unspecified ; N18.9 - Chronic kidney disease, unspecified (4) CHF (congestive heart failure) Current Visit: Yes Status: Acute Assessment and plan: no signs of acute exacerbation continue home medications Qualifiers: Congestive heart failure type: diastolic Congestive heart failure chronicity: chronic Qualified Code(s): I50.32 - Chronic diastolic (congestive ) heart failure (5) Crohns disease Current Visit: Yes Status: Chronic Assessment and plan: continue home medications Qualifiers: Gastrointestinal tract location: unspecified location Digestive disease complication type: unspecified complication Qualified Code(s): K50.919 - Crohn 's disease, unspecified, with unspecified complications (6) Hypertension Current Visit: Yes Status: Chronic Assessment and plan: BP within acceptable range despite holding Lisinopril and HCTZ continue Metoprolol will continue to closely monitor BP Qualifiers: Hypertension type: essential hypertension Qualified Code(s): I10 - Essential (primary) hypertension (7) Hypothyroidism Current Visit: Yes Status: Chronic Assessment and plan: continue home dose of levothyroxine Qualifiers: Hypothyroidism type: unspecified Qualified Code(s): E03.9 - Hypothyroidism , unspecified (8) DVT prophylaxis Current Visit: Yes Status: Acute Assessment and plan: Heparin SQ (9) Morbid obesity with BMI of 40.0-44.9, adult Current Visit: Yes Status: Chronic (10) Electrolyte abnormality Current Visit: Yes Status: Resolved Assessment and plan: Resolved continue to monitor electrolytes and supplement as needed - Subjective Interval history: Patient seen and examined at bedside. Patient resting in bed and reports of feeling better compared to previous day. States the pain is still there but significantly better compared to previous day - Constitutional Vitals: Temp Pulse Resp BP Pulse Ox 97.5 F L 62 15 120/58 96 04/02/17 15:05 04/02/17 15:05 04/02/17 15:05 04/02/17 15:05 04/02/17 15:05 General appearance: Present: A&O X 3, morbidly obese, no acute distress, answers questions appropriately - Head Head exam: Present: atraumatic, normocephalic - Eye Eye exam: Present: conjuntiva pink, sclera anicteric - Respiratory Respiratory exam: Present: CTAB. Absent: respiratory distress, wheezes - Cardiovascular Cardiovascular exam: Present: RRR, +S1, +S2. Absent: diastolic murmur, gallop, rubs, systolic murmur - GI/Abdominal GI/Abdominal exam: Present: distended (obese), normal bowel sounds, soft, tenderness (LLQ tenderness to deep palpation ). Absent: guarding, rebound - Extremities Exam Extremities exam: Present: warm, radial pulses palpable and symmetrical. Absent : calf tenderness - Neurological Exam Neurological exam: Present: alert, oriented X3 - Psychiatric Psychiatric exam: Present: normal affect, normal mood Internal Medicine: Result - Labs CBC & Chem 7: 04/02/17 07:24 04/02/17 07:24 Labs: Short CBC 04/02/17 Range/Units 07:24 WBC 5.0 (4.3-11.1) K/mcL Hgb 9.3 L (11.5-15.4) g/dL Hct 30.2 L (35.3-44.9) % Plt Count 352 D (140-400) K/mcL Neutrophils # 3.6 (1.6-8.9) K/mcL BMP 04/02/17 07:24 Sodium 137 Potassium 4.3 Chloride 107 Carbon Dioxide 25 BUN 13 Creatinine 1.11 Glucose 156 H Calcium 9.2 - VTE Documentation of Mechanical Device: Intermittent pneumatic compression device Consult Discharge Plan - Plan Referrals: NONE,PCP [Primary Care Provider] -
[2017-04-03] MEDS: *HR* HYDROmorphone (PF) 1 MG/ML SYRINGE IVP PRN ×2 (02:57→11:00)
--- NOTE | 2017-04-03 06:06 | Electrocardiograph Report ---
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
[2017-04-03] MEDS: MetroNIDAZOLE 500 MG/100 ML 500 MG/100 ML BAG IVPB SCH ×2 (06:08→12:51)
[2017-04-03] MEDS: *HR* Heparin 5,000 UNIT/ML VIAL SQ SCH (06:09)
[2017-04-03] MEDS: *HR* HYDROcodone/Acet 7.5/325 mg TABLET PO PRN (06:43)
[2017-04-03 07:00] LABS: Basophils % 0.6 %; Eosinophils # 0.2 K/mcL (0.0-0.6); Eosinophils % 3.9 %; Hematocrit 32.5 % (35.3-44.9); Hemoglobin 10.4 g/dL (11.5-15.4); Immature Granulocytes % 0.4 % (0-4); Lymphocytes % 19.3 %; Mean Corpuscular Hemoglobin 27.7 pg (28.0-33.3); Mean Corpuscular Volume 86.7 fL (83.0-100.0); Mean Platelet Volume 10.4 fL (9.4-12.4); Monocytes # 0.5 K/mcL (0.0-1.3); Monocytes % 10.5 %; Neutrophils # 3.3 K/mcL (1.6-8.9); Platelet Count 392 K/mcL (140-400); Red Blood Count 3.75 M/mcL (3.82-4.97); Red Cell Distribution Width 13.8 % (11.5-14.5); Segmented Neutrophils % 65.3 %
[2017-04-03 07:11] LABS: Calcium 9.5 mg/dL (8.6-10.8); Magnesium 1.6 mg/dL (1.6-2.6); Phosphorous 2.3 mg/dL (2.3-4.7)
[2017-04-03] MEDS: Insulin LISPRO 300 UNITS/3 ML VIAL SQ SCH ×2 (10:26→12:51)
[2017-04-03] MEDS: Fenofibrate 54 MG TABLET PO SCH (10:27)
[2017-04-03] MEDS: Mesalamine 250 MG CAPSULE.ER PO SCH ×2 (10:27→12:50)
[2017-04-03] MEDS: clonazePAM 1 MG TABLET PO SCH (10:27)
[2017-04-03] MEDS: Aspirin 81 MG TAB.CHEW PO SCH (10:27)
[2017-04-03] MEDS: FLUoxetine 20 MG CAPSULE PO SCH (10:27)
[2017-04-03] MEDS: Isosorbide MONOnitrate (24 HR) 30 MG TAB.ER.24H PO SCH (10:28)
[2017-04-03 11:35] VITALS: BP 123/57
--- NOTE | 2017-04-03 13:22 | Discharge Summary ---
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: without nursing home use Chronic kidney disease stage: stage 3 (moderate) Qualified Code(s): E11.22 - Type 2 diabetes mellitus with diabetic chronic kidney disease; N18.3 - Chronic kidney disease, stage 3 (moderate) (3) Crohns disease Priority: Secondary Status: Chronic Qualifiers: Gastrointestinal tract location: small and large intestine Digestive disease complication type: unspecified complication Qualified Code(s): K50.819 - Crohn's disease of both small and large intestine with unspecified complications (4) Hypertension Priority: Secondary Status: Chronic Qualifiers: Hypertension type: essential hypertension Qualified Code(s): I10 - Essential (primary) hypertension (5) Hypothyroidism Priority: Secondary Status: Chronic Qualifiers: Hypothyroidism type: unspecified Qualified Code(s): E03.9 - Hypothyroidism , unspecified (6) CHF (congestive heart failure) Priority: Secondary Status: Chronic Qualifiers: Congestive heart failure type: diastolic Congestive heart failure chronicity: chronic Qualified Code(s): I50.32 - Chronic diastolic (congestive ) heart failure (7) Morbid obesity with BMI of 40.0-44.9, adult Priority: Secondary Status: Chronic (8) Dciig-sj-vgeujlv kidney injury Priority: Primary Status: Acute Qualifiers: Acute renal failure type: unspecified Chronic kidney disease stage: unspecified stage Qualified Code(s): N17.9 - Acute kidney failure, unspecified ; N18.9 - Chronic kidney disease, unspecified - Discharge Medications Prescriptions: Ciprofloxacin HCl [Cipro] 500 mg PO BID #20 tablet metroNIDAZOLE [Metronidazole] 500 mg PO TID #30 tablet Home Medications: Aspirin 81 mg PO DAILY 03/15/15 [History] ClonazePAM [Klonopin] 1 mg PO BID 03/15/15 [History] FLUoxetine HCl [Prozac] 40 mg PO DAILY 03/15/15 [History] Fenofibrate [Tricor] 54 mg PO DAILY 03/15/15 [History] Isosorbide MONOnitrate [Isosorbide Mononitrate] 30 mg PO DAILY 03/15/15 [History ] Levothyroxine [Synthroid] 150 mcg PO DAILY 03/15/15 [History] Mesalamine [Pentasa] 1,000 mg PO QID 03/15/15 [History] Metoprolol [Lopressor] 25 mg PO BID 03/15/15 [History] Pantoprazole Sodium [Protonix] 40 mg PO DAILY 03/15/15 [History] Ondansetron HCl [Zofran] 4 mg PO Q6HR PRN #8 tablet 03/29/17 [Rx] Polyethylene Glycol 3350 [MiraLAX Powder Bulk 17.9 Oz] 1 scoop PO DAILY #510 gm 03/29/17 [Rx] Ciprofloxacin HCl [Cipro] 500 mg PO BID #20 tablet 04/03/17 [Rx] HYDROcodone/Acet 5/325 mg [[place] 5-325 mg] 1 tab PO Q6H PRN #15 tab 04/03/17 [Rx ] metroNIDAZOLE [Metronidazole] 500 mg PO TID #30 tablet 04/03/17 [Rx] Allergies/Adverse Reactions: 3 Allergy/AdvReac Type Severity Reaction Status Date / Time atorvastatin [From Lipitor] AdvReac See Verified 03/30/17 02:49 Comments Date of admission: 03/30/17 08:22 Primary care physician: PCP NONE Consults: 03/30/17 08:25 Consult to Gastroenterology [CONS] Routine Consulting Provider: Starla Linares Reason for Consult: recurrent sigmoid diverticulitis Time Notified: 08:25 Call Completed: Yes Discharging clinician: Meredith Martínez Anticipated date of discharge: 04/03/17 - Patient Status Disposition: Home, Self-Care Condition: Fair Functional capacity at discharge: independent ambulation Overall status at discharge: patient is progressing back to baseline - Discharge Instructions Instructions: Ciprofloxacin (By mouth), Metronidazole (By mouth) Follow Up With: Lakisha James, VANESSA [Non-Partnered Physician] - 04/09/17 10:30 am NONE,PCP [Primary Care Provider] - Additional Instructions: F/up with PCP in 1-2 weeks F/up with /[facility] in 3-4 weeks - Diet and Activity Activity: resume usual activities as tolerated Diet: advance to your usual diet, diabetic diet, low fat, low cholesterol, low salt diet, other (renal diet) Hospital course: Ms. Marks is a 66 year old female with the above medical problems who was admitted with abdominal pain and noted to have acute sigmoid diverticulitis on CT abdomen/pelvis. She was initially given bowel rest and started on IV hydration and IV antibiotics and her symptoms gradually improved. Gastroenterology was consulted and recommended outpatient follow-up. Patient is currently able to tolerate oral diet and is medically stable for discharge on oral antibiotics. - Time Spent with Patient Total time spent providing and/or coordinating discharge services: Greater than 30 minutes (40 min) - Constitutional Vitals: Temp Pulse Resp BP Pulse Ox 97.9 F 55 16 123/57 93 04/03/17 11:30 04/03/17 11:30 04/03/17 11:30 04/03/17 11:30 04/03/17 11:30 General appearance: Present: A&O X 3, morbidly obese, no acute distress, answers questions appropriately - Cardiovascular Cardiovascular exam: Present: RRR, +S1, +S2. Absent: diastolic murmur, gallop, rubs, systolic murmur - GI/Abdominal GI/Abdominal exam: Present: normal bowel sounds, soft (LLQ tenderness to deep palpation+), no peritoneal signs. Absent: distended, tenderness - VTE Documentation of Mechanical Device: Intermittent pneumatic compression device
== END 2017-04-03 14:45 | disposition home or self-care (01) | DRG 392 ==
LOC: 3NENU 02:40 → EMEROO 02:40 → 3NENU 06:53 → SUATTDRO 08:22 → 3BNU 04-02 11:09
PROVIDERS: ADMIT Family Medicine; ATTEND Internal Medicine

== ENCOUNTER 2017-05-27 07:36 | Inpatient (IN) ==
--- NOTE | 2017-05-27 08:01 | Emergency Department Note ---
Disposition Clinical Impression: Colonoscopy planned, Hx of diverticulitis of colon Crohn's disease of colon Qualifiers: Digestive disease complication type: unspecified complication Qualified Code(s) : K50.119 - Crohn's disease of large intestine with unspecified complications Disposition: Admitted As Inpatient Condition: Good Referrals: Lakisha James, [employer] ATTENDANT [Primary Care Provider] - Forms: ED Satisfaction Letter, Work/School Release Time of Disposition: 08:13 General Adult HPI - General Chief complaint: ED General Medical Stated complaint: Needs admitted Time Seen by Provider: 05/27/17 07:40 Source: patient Limitations: no limitations Nursing Notes Reviewed: Yes Vital Signs Reviewed: Yes - History of Present Illness HPI Narrative: Mrs. Marks, a 66yo female, presents from home for admission to the hospital for colonoscopy day and colectomy tomorrow. She was called by Dr. Zheng's office and told to come to the emergency department today for admission for those procedures. She was discharged from the hospital approximately 6 weeks ago for diverticulitis and has been on antibiotics for approximately the last 1 month. She is completing her bowel prep. Otherwise, patient's complaint is that she has not had anything to eat or drink as she has been doing a bowel prep. PMH: Sigmoid diverticulitis, chronic kidney disease, congestive heart failure- diastolic, Crohn's disease, retention, hyperlipidemia, obesity, hypothyroidism ROS: Positive: Hungry Negative: Fever, chills, nausea, vomiting, abdominal pains, dysuria, chest pains , palpitations, weakness Pain Scale: 0 - Related Data Home Medications Medication Instructions Recorded Confirmed Aspirin 81 mg PO DAILY 03/15/15 03/30/17 ClonazePAM [Klonopin] 1 mg PO BID 03/15/15 03/30/17 FLUoxetine HCl [Prozac] 40 mg PO DAILY 03/15/15 03/30/17 Fenofibrate [Tricor] 54 mg PO DAILY 03/15/15 03/30/17 Isosorbide MONOnitrate [Isosorbide 30 mg PO DAILY 03/15/15 03/30/17 Mononitrate] Levothyroxine [Synthroid] 150 mcg PO DAILY 03/15/15 03/30/17 Mesalamine [Pentasa] 1,000 mg PO QID 03/15/15 03/30/17 Metoprolol [Lopressor] 25 mg PO BID 03/15/15 03/30/17 Pantoprazole Sodium [Protonix] 40 mg PO DAILY 03/15/15 03/30/17 Previous Rx's Medication Instructions Recorded Ondansetron HCl [Zofran] 4 mg PO Q6HR PRN #8 tablet 03/29/17 Polyethylene Glycol 3350 [MiraLAX 1 scoop PO DAILY #510 gm 03/29/17 Powder Bulk 17.9 Oz] Ciprofloxacin HCl [Cipro] 500 mg PO BID #20 tablet 04/03/17 HYDROcodone/Acet 5/325 mg [[place] 1 tab PO Q6H PRN #15 tab 04/03/17 5-325 mg] metroNIDAZOLE [Metronidazole] 500 mg PO TID #30 tablet 04/03/17 Allergies Allergy/AdvReac Type Severity Reaction Status Date / Time atorvastatin [From Lipitor] AdvReac See Verified 05/21/17 11:22 Comments All systems ED: reviewed and negative except as stated. Past Medical History - Past Medical History Medical history: Reports: diabetes, GERD, hypertension, myocardial infarction, thyroid disease Surgical history: Reports: cholecystectomy, hysterectomy Psychiatric history: Reports: anxiety, depression ACCOUNT MANAGER history: Reports: no ACCOUNT MANAGER history - Social History Smoking Status: Former smoker Smokeless Tobacco Status: No Alcohol use: Reports: none Drug use: Reports: none Physical Exam Vital Signs Reviewed General: Patient is alert, oriented, and in no acute distress. HEENT: No facial asymmetry. Head is normocephalic and atraumatic. Oral mucosa moist. Trachea midline. Cardiovascular: Heart regular rate and rhythm without clicks, rubs, gallops, or murmurs. No JVD. PMI nondisplaced. Respiratory: Symmetric chest rise with good respiratory effort. Bilateral breath sounds are clear without wheezing, crackles, or rhonchi. Abdomen: Obese. Bowel sounds present normoactive x-4 quadrants. Abdomen is soft, nondistended, and nontender. Psych: Patient's affect is appropriate for situation. - General Limitations: no limitations General appearance: alert, in no apparent distress Course Course Narrative: Patient is pleasant, well-appearing, with no complaints other than following instructions as she understood them. Dr. White is on for Dr. Wetzel; have paged him. In speaking with Dr. White, patient will be admitted to surgical services for colonoscopy today. Admitting diagnosis is recurrent diverticulitis in the setting of Crohn's disease. He does not need any additional lab work at this time. Patient's bowel movements are clear as she has completed her bowel prep. Vital Signs Temperature 97.8 F 05/27/17 07:37 Pulse Rate 96 05/27/17 07:37 Respiratory Rate 18 05/27/17 07:37 Blood Pressure 132/73 05/27/17 07:37 O2 Sat by Pulse Oximetry 98 05/27/17 07:37 Temperature 97.8 F 05/27/17 07:37 Pulse Rate 92 05/27/17 07:52 Respiratory Rate 17 05/27/17 07:52 Blood Pressure 145/67 05/27/17 07:52 O2 Sat by Pulse Oximetry 94 05/27/17 07:52 Oxygen Delivery Oxygen Delivery Room Air,Nasal Cannula Medical Decision Making - Medical Records Medical records reviewed: Yes I reviewed the patient's medical records. Attestation Statement - Attestation Attestation: Patient was seen with resident physician. I reviewed the history, physical, assessment and plan, and agree with the findings. I also personally evaluated this patient and had [id number] time with this patient. 66-year-old female presents to the emergency department wanting admission to surgery. Patient had started a bowel prep yesterday on the advice of her surgeon Dr. Zheng, who suggested that she start a bowel prep and then come to the ER today for admission to the hospital for potential colonoscopy today and potential cold resection tomorrow. Patient states that she did her bowel prep yesterday until clear and reported to the ER as suggested. Patient is pain-free currently and has no complaints. On examination vital signs are stable. ENT is unremarkable. Heart and lungs are both normal. Abdomen is soft obese and nontender. Extremities are unremarkable. Neurologically intact. ED course we spoke with Dr. White who was aware of the patient was coming in. He agreed to accept the patient to his service. He did not request any additional lab testing or workup at this time. Patient remained stable while she was in the ER. She was admitted to the surgical service.
--- NOTE | 2017-05-27 09:12 | General Surg History&Physical ---
Date of Encounter: 05/27/17 Time of Encounter: 09:10 Assessment and Plan (1) Sigmoid diverticulitis Current Visit: No Status: Acute The assessment and plan as outlined above was discussed with the patient and/or family members who expressed understanding and agreement. All questions were answered. She underwent a bowel prep yesterday and we will proceed with a colonoscopy to fully evaluate the entire colon. If everything appears to be without significant problems or complications then she will proceed with a sigmoid colectomy to be performed by Dr. Wetzel tomorrow. History of Present Illness Chief complaint: History of crohn's and diverticulitis HPI: Ms. Marks is a 66 year old female a past medical history significant for Crohn' s disease, diabetes mellitus type 2, anxiety, and coronary artery disease status post [facility] 2013 who has had problems associated with sigmoid diverticulitis. He has had 7-8 episodes of recurrent diverticulitis with the last 2 episodes requiring admission to the hospital. She denies any nausea or vomiting and has had a bowel prep yesterday for possible colonoscopy today and for possible sigmoid colectomy tomorrow. Awaiting states that her bowel movements are clear. Past Med Surg Social Fam HX - Past Medical History Medical history: diabetes, GERD, hypertension, myocardial infarction, thyroid disease Psychiatric history: anxiety, depression - Past Surgical History Surgical History: cholecystectomy, hysterectomy - Social History Smoking Status: Former smoker Smokeless Tobacco Status: No Alcohol use: none Drug use: none Medications and Allergies Aspirin 81 mg PO DAILY 03/15/15 [History] ClonazePAM [Klonopin] 1 mg PO BID 03/15/15 [History] FLUoxetine HCl [Prozac] 40 mg PO DAILY 03/15/15 [History] Fenofibrate [Tricor] 54 mg PO DAILY 03/15/15 [History] Isosorbide MONOnitrate [Isosorbide Mononitrate] 30 mg PO DAILY 03/15/15 [History ] Levothyroxine [Synthroid] 150 mcg PO DAILY 03/15/15 [History] Mesalamine [Pentasa] 1,000 mg PO QID 03/15/15 [History] Metoprolol [Lopressor] 25 mg PO BID 03/15/15 [History] Pantoprazole Sodium [Protonix] 40 mg PO DAILY 03/15/15 [History] Ondansetron HCl [Zofran] 4 mg PO Q6HR PRN #8 tablet 03/29/17 [Rx] Polyethylene Glycol 3350 [MiraLAX Powder Bulk 17.9 Oz] 1 scoop PO DAILY #510 gm 03/29/17 [Rx] Ciprofloxacin HCl [Cipro] 500 mg PO BID #20 tablet 04/03/17 [Rx] HYDROcodone/Acet 5/325 mg [[place] 5-325 mg] 1 tab PO Q6H PRN #15 tab 04/03/17 [Rx ] metroNIDAZOLE [Metronidazole] 500 mg PO TID #30 tablet 04/03/17 [Rx] 3 Allergy/AdvReac Type Severity Reaction Status Date / Time atorvastatin [From Lipitor] AdvReac See Verified 05/21/17 11:22 Comments Review of Systems All systems PM: reviewed and no additional remarkable complaints except as stated All systems PM: A 10-system review of systems was performed and is negative for pertinent findings except as documented above in the HPI. General Surgery Exam Initial Vital Signs Temp Pulse Resp BP Pulse Ox 97.8 F 96 18 132/73 98 05/27/17 07:37 05/27/17 07:37 05/27/17 07:37 05/27/17 07:37 05/27/17 07:37 - Eyes PERRL, normal ocular movement - Neck trachea midline, no lymphadectomy - Respiratory normal expansion, normal respiratory effort, clear to auscultation - Cardiovascular Cardiovascular exam: Present: RRR, no murmurs/rubs/gallops - Abdomen Abdomen general surgery: Present: bowel sounds present, soft - Integumentary Integumentary general surgery: Present: warm and dry - Neurologic Present: CN 2-12 grossly intact - Musculoskeletal Present: other (No clubbing, cyanosis, or edema.) - Psychiatric Psychiatric general surgery: Present: A&Ox3, oriented to person, oriented to place, oriented to time Results - Labs All other labs normal.
--- NOTE | 2017-05-27 10:54 | Anesthesia Evaluation PreOp ---
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: Other (anxiety) Other Medical History: Diabetes Type II (insulin dependent), Thyroid, GERD, Other (Crohn's disease) Alcohol Use: none Drug use: none Medications and Allergies Aspirin 81 mg PO DAILY 03/15/15 [History] ClonazePAM [Klonopin] 1 mg PO BID 03/15/15 [History] FLUoxetine HCl [Prozac] 40 mg PO DAILY 03/15/15 [History] Fenofibrate [Tricor] 54 mg PO DAILY 03/15/15 [History] Isosorbide MONOnitrate [Isosorbide Mononitrate] 30 mg PO DAILY 03/15/15 [History ] Levothyroxine [Synthroid] 150 mcg PO DAILY 03/15/15 [History] Mesalamine [Pentasa] 1,000 mg PO QID 03/15/15 [History] Metoprolol [Lopressor] 25 mg PO BID 03/15/15 [History] Pantoprazole Sodium [Protonix] 40 mg PO DAILY 03/15/15 [History] Ondansetron HCl [Zofran] 4 mg PO Q6HR PRN #8 tablet 03/29/17 [Rx] Polyethylene Glycol 3350 [MiraLAX Powder Bulk 17.9 Oz] 1 scoop PO DAILY #510 gm 03/29/17 [Rx] Ciprofloxacin HCl [Cipro] 500 mg PO BID #20 tablet 04/03/17 [Rx] HYDROcodone/Acet 5/325 mg [[place] 5-325 mg] 1 tab PO Q6H PRN #15 tab 04/03/17 [Rx ] metroNIDAZOLE [Metronidazole] 500 mg PO TID #30 tablet 04/03/17 [Rx] 3 Allergy/AdvReac Type Severity Reaction Status Date / Time atorvastatin [From Lipitor] AdvReac See Verified 05/21/17 11:22 Comments - Meds/Allergy Pre-op Review Medications Reviewed: Yes Allergies Reviewed: Yes Beta Blockers on Current Med List: Yes If Beta Blockers taken, Date/Time (Last Dose taken): 05-27-17 7 am Anesthesia Results - Labs Laboratory Tests 05/07/17 05/21/17 05/21/17 11:07 11:38 11:38 WBC 7.9 Hgb 12.8 Hct 40.3 Plt Count 325 Sodium 139 Potassium 4.3 Chloride 106 Carbon Dioxide 21 BUN 19 Creatinine 1.03 Est GFR ( Amer) > 60 Est GFR (Non-Af Amer) 54 L BUN/Creatinine Ratio 18 Est Mean Plasma Glucose 154 Hemoglobin A1c 7.0 H - Imaging EKG: report reviewed, image reviewed (SR) Additional studies: TTE: Impressions: LVEF 60%. Normal LV chamber size and function. Mild concentric left ventricular hypertrophy. Mild left ventricular diastolic dysfunction. Normal right ventricular structure and function. No evidence of pulmonary hypertension. No significant valvular dysfunction. Anesthesia Exam Last Vital Signs Temp 97.8 F 05/27/17 07:37 Pulse 88 05/27/17 08:34 Resp 18 05/27/17 08:34 BP 138/60 05/27/17 08:34 Pulse Ox 98 05/27/17 08:34 - HEENT Pupil (Motor): Pupils equal, EOMI Teeth: Edentulous Oral Opening: Greater than 3 - AUTOMATED ACCESS SYSTEMS TECHNICIAN LOC: Oriented - Cardiac Rhythm: Regular Murmur: None - Pulmonary Breath Sounds: bilateral Clear Respiratory Effort: Symmetrical Anesthesia Assess/Plan ASA Score: 3 Modified [place] Scale for Level of Consciousness: Cooperative, oriented, and tranquil Anesthetic Plan: MAC Monitoring Plan: Standard Monitors Recovery Plan: PACU
[2017-05-27] MEDS ORDERED: Lidocaine -MPF 2% 2 ML VIAL ONE (11:47)
[2017-05-27] MEDS ORDERED: Propofol 500 MG/50 ML INFUS..BTL ONE (11:47)
[2017-05-27] MEDS ORDERED: *HR* Propofol 200 MG/20 ML VIAL IVP ONE (12:26)
--- NOTE | 2017-05-27 12:47 | Event Note ---
Date of Encounter: 05/27/17 Time of Encounter: 12:46 Colonoscopy performed-signs of sigmoid and descending colon diverticulum without inflammation. No signs of polyps or mass. No bleeding. Will write for clear liquids and oral antibiotics.
--- NOTE | 2017-05-27 12:51 | Anesthesia Evaluation Post Op ---
Date of Encounter: 05/27/17 Time of Encounter: 12:51 - Vital Signs Vital Signs: BP 109/55 HR 69 O2 99% RR 14 - Lungs Lungs: Clear Ascult./Percussion - Airway Airway: Non-obstructed - Cardiovascular Regular Rate - Mental Status Mental Status: Alert & Oriented, Answers Appropriately - Pain Pain Scale: 1 - Nausea Vomiting Nausea Vomiting: Not Present - Hydration Hydration: NPO - Discharge PostOp Status: Transfer Patient to floor
[2017-05-27] MEDS ORDERED: *HR* Dextrose 50 % in Water (Syg) 50 ML SYRINGE IVP PRN (13:49)
[2017-05-27] MEDS ORDERED: D5% in Water 1,000 ML IVC PRN (13:49)
[2017-05-27] MEDS ORDERED: Dextrose Gel 15 GM PO PRN ×2 (13:49)
[2017-05-27] MEDS ORDERED: Ondansetron 4 MG/2 ML VIAL IVP PRN (13:49)
[2017-05-27] MEDS: 0.9 % Sodium Chloride 1,000 ML IVC SCH (15:56)
[2017-05-27] MEDS: *HR* Heparin 5,000 UNIT/ML VIAL SQ SCH (17:27)
[2017-05-27] MEDS: *HR* Metoprolol 5 MG/5 ML VIAL IVP SCH ×2 (17:27→23:44)
[2017-05-27] MEDS: Insulin LISPRO 300 UNITS/3 ML VIAL SQ SCH ×2 (17:28→23:40)
[2017-05-28] MEDS: 0.9 % Sodium Chloride 1,000 ML IVC SCH ×3 (04:10→23:57)
[2017-05-28 05:49] LABS: Basophils % 0.7 %; Eosinophils # 0.2 K/mcL (0.0-0.6); Eosinophils % 3.3 %; Hemoglobin 11.9 g/dL (11.5-15.4); Immature Granulocytes % 0.4 % (0-4); Lymphocytes # 1.1 K/mcL (0.6-4.6); Mean Corpuscular HGB Conc 32.2 g/dL (31.6-35.5); Mean Corpuscular Hemoglobin 27.8 pg (28.0-33.3); Mean Corpuscular Volume 86.4 fL (83.0-100.0); Mean Platelet Volume 9.7 fL (9.4-12.4); Monocytes # 0.6 K/mcL (0.0-1.3); Monocytes % 9.9 %; Neutrophils # 3.7 K/mcL (1.6-8.9); Platelet Count 327 K/mcL (140-400); Red Blood Count 4.28 M/mcL (3.82-4.97); Red Cell Distribution Width 13.9 % (11.5-14.5); Segmented Neutrophils % 66.7 %
[2017-05-28] MEDS: *HR* Heparin 5,000 UNIT/ML VIAL SQ SCH ×2 (05:59→17:27)
[2017-05-28] MEDS: Insulin LISPRO 300 UNITS/3 ML VIAL SQ SCH ×3 (05:59→23:55)
[2017-05-28] MEDS: *HR* Metoprolol 5 MG/5 ML VIAL IVP SCH ×3 (05:59→23:57)
[2017-05-28 06:19] LABS: Calcium 9.1 mg/dL (8.6-10.8)
[2017-05-28] MEDS: Pantoprazole 40 MG VIAL IVP SCH ×2 (08:13→09:03)
--- NOTE | 2017-05-28 08:36 | Anesthesia Evaluation PreOp ---
Date of Encounter: 05/28/17 Time of Encounter: 08:33 - Past History Planned Operation: Open sigmoid colectomy Cardiac History: [place] (2013, [facility], no stents), HTN, Hyperlipidemia Pulmonary History: Former smoker, [place] Dx Other Medical History: Renal (CRF), Diabetes Type II, Thyroid, GERD, Other ( Sigmoid diverticulitis, Crohn's disease, Obesity) Anesthesia History: No Prior Anesthetic Complications, Past Anesthesia Alcohol Use: none Drug use: none Medications and Allergies Aspirin 81 mg PO DAILY 03/15/15 [History] ClonazePAM [Klonopin] 1 mg PO BID 03/15/15 [History] FLUoxetine HCl [Prozac] 40 mg PO DAILY 03/15/15 [History] Fenofibrate [Tricor] 54 mg PO DAILY 03/15/15 [History] Isosorbide MONOnitrate [Isosorbide Mononitrate] 30 mg PO DAILY 03/15/15 [History ] Levothyroxine [Synthroid] 150 mcg PO DAILY 03/15/15 [History] Mesalamine [Pentasa] 1,000 mg PO QID 03/15/15 [History] Metoprolol [Lopressor] 25 mg PO BID 03/15/15 [History] Pantoprazole Sodium [Protonix] 40 mg PO DAILY 03/15/15 [History] Ondansetron HCl [Zofran] 4 mg PO Q6HR PRN #8 tablet 03/29/17 [Rx] Polyethylene Glycol 3350 [MiraLAX Powder Bulk 17.9 Oz] 1 scoop PO DAILY #510 gm 03/29/17 [Rx] Ciprofloxacin HCl [Cipro] 500 mg PO BID #20 tablet 04/03/17 [Rx] HYDROcodone/Acet 5/325 mg [[place] 5-325 mg] 1 tab PO Q6H PRN #15 tab 04/03/17 [Rx ] metroNIDAZOLE [Metronidazole] 500 mg PO TID #30 tablet 04/03/17 [Rx] 3 Allergy/AdvReac Type Severity Reaction Status Date / Time atorvastatin [From Lipitor] AdvReac See Verified 05/21/17 11:22 Comments - Meds/Allergy Pre-op Review Medications Reviewed: Yes Allergies Reviewed: Yes Anesthesia Results - Labs 05/28/17 05:19 05/28/17 05:19 Laboratory Tests 05/28/17 05:19 Calcium 9.1 - Imaging EKG: report reviewed (SINUS RHYTHM) Additional studies: TTE 12/2016: LVEF 60%. Normal LV chamber size and function. Mild concentric left ventricular hypertrophy. Mild left ventricular diastolic dysfunction. Normal right ventricular structure and function. No evidence of pulmonary hypertension. No significant valvular dysfunction. PFT 12/2016: FVC 85-94% FEV1 91-98% MVV 80% DLCO 86% Anesthesia Exam Vital Signs/O2 Sat/Glucose, Most Recent Temp Pulse Resp BP Pulse Ox 97.9 F 67 18 115/66 94 05/28/17 06:49 05/28/17 06:49 05/28/17 06:49 05/28/17 06:49 05/28/17 06:49 Blood Glucose* 170 Height: 5' 2" Weight: 96 Kg BMI 39 NPO (# of Hours): >8 - HEENT Mallampati: I Teeth: Missing Denture Type: Upper: Complete Oral Opening: Greater than 3 - Cardiac Rhythm: Regular - Pulmonary Breath Sounds: bilateral Clear Anesthesia Assess/Plan ASA Score: 4 Anesthetic Plan: General Monitoring Plan: Standard Monitors, A-Line (Possible) Recovery Plan: PACU Anes Supervising Prov Stmt: I have participated in the evaluation of this patient. Patient informed and consented. Risks, benefits, and alternatives discussed. Patient wishes to proceed.
[2017-05-28] MEDS: Ringers Solution, Lactated 1,000 ML IVC SCH ×2 (09:30→11:29)
[2017-05-28] MEDS ORDERED: CefOXitin 2,000 MG VIAL ONE (10:03)
[2017-05-28] MEDS ORDERED: cefOXitin 1,000 MG in D5% in Water (Mini-Bag+) 100 ML IVPB STA (10:05)
[2017-05-28] MEDS ORDERED: *HR* Phenylephrine 10 MG/ML VIAL ONE (10:19)
[2017-05-28] MEDS ORDERED: *HR* Propofol 200 MG/20 ML VIAL IVP ONE (10:19)
[2017-05-28] MEDS ORDERED: *HR* Rocuronium Bromide 50 MG/5 ML VIAL ONE ×2 (10:19→11:19)
[2017-05-28] MEDS ORDERED: Lidocaine -MPF 2% 2 ML VIAL ONE (10:19)
[2017-05-28] MEDS ORDERED: *HR* FentaNYL (PF) 100 MCG/2 ML VIAL ONE ×2 (10:20→10:50)
[2017-05-28] MEDS ORDERED: *HR* Midazolam HCl 2 MG/2 ML VIAL ONE (10:20)
--- NOTE | 2017-05-28 10:27 | Anesthesia Procedures ---
Date of Encounter: 05/28/17 Time of Encounter: 10:05 (~ [id number] In OR after anesthesia induction) Procedures: Anesthesia - Central Line Placement Right SC Time out performed: Yes Patient placed on monitor/pulse ox: Yes MD prep: mask, gown, gloves, other (Hat) Central line prep: Chlorhexidine scrub, sterile drapes applied (FBD) Ultrasound used for placement: No Technique: Seldinger, other (18 ga needle x 1 attempt, DNPBRWRV, GW, temp ectopy , skin dilator, cath) Lumen Inserted: triple Size / Length: 7 Fr / 16 cm Post procedure: sutured in place (3/0 silk), all ports aspirated, flushed, capped, sterile dressing applied ([facility] biopatch) Post procedure x-ray: other (CXR will be checked in PACU postop) Patient tolerated procedure: no complications Complications: none Vitals: Per anesthesia record Comments: Indication: Thrmbophlebosis (poor iv access) Anes Supervising Prov Stmt: I personally perfomed the procedure.
[2017-05-28] MEDS ORDERED: *HR* Promethazine 25 MG/ML VIAL IVP PRN ×2 (10:59→14:36)
[2017-05-28] MEDS ORDERED: Ondansetron 4 MG/2 ML VIAL IVP ONE (10:59)
[2017-05-28] MEDS ORDERED: *HR* Labetalol 20 MG/4 ML SYRINGE IVP PRN (10:59)
[2017-05-28] MEDS ORDERED: *HR* Morphine 2 MG/ML SYRINGE IVP PRN (10:59)
[2017-05-28] MEDS ORDERED: cefOXitin 1,000 MG in Water for inj. (sterile) 10 ML IVP ONE (11:12)
[2017-05-28] MEDS ORDERED: Dexamethasone 4 MG/ML VIAL ONE (11:37)
[2017-05-28] MEDS ORDERED: Ondansetron 4 MG/2 ML VIAL ONE (11:37)
[2017-05-28] MEDS ORDERED: Neostigmine Methylsulfate 3 MG/3 ML SYRINGE ONE (11:37)
[2017-05-28] MEDS ORDERED: *HR* HYDROmorphone 2 MG/ML SYRINGE ONE (12:25)
--- NOTE | 2017-05-28 12:51 | Operative Note ---
Date of procedure: 05/28/17 Pre-op diagnosis: recurrent sigmoid diverticulitis Post-op diagnosis: same Procedure: Open sigmoidectomy, incidental appendectomy Complications: none immediate Anesthesia: RADHA Surgeon: Pattie Wetzel Cash Register Repairer: Cassandra Eduardo Estimated blood loss (cc): 25 Specimen: see op notes Condition: stable Disposition: PACU Procedure in Detail: specimen: sigmoid, anastomotic rings, appendix Patient was brought to the operating suite and placed supine on the operating table. Sign in was performed and everyone was in agreement. Anesthesia was induced and patient was endotracheally intubated by anesthesia without incident. [place] catheter was placed by the circulating nurse and an NG tube placed by anesthesia. Patient was placed in lithotomy position. The abdomen was prepped and draped in the usual sterile fashion. Timeout was performed again everyone was in agreement. Midline incision through the skin and the subcutaneous tissue was made with a 15 blade beginning just above the umbilicus down to above the. Tubercle. Dissection through the subcutaneous tissue to the anterior abdominal wall linea alba fascia was done with the Bovie. Cultures are placed in either side of the fascia for retraction and the abdomen was entered with the Bovie and gentle blunt dissection. The midline incision at the fascial level was elongated proximally and distally with the Bovie. The Bookwalter was placed for exposure and retraction. Patient had a very large thick omentum which was retracted superiorly. The sigmoid was retracted to the right and the white line of Toldt was taken down beginning at the rectosigmoid junction and proceeding proximally along the white line of Toldt to the splenic flexure. The colon was gently dissected off the abdominal wall with gentle blunt dissection. The distal transverse colon omentum was taken off the colon with the Bovie. The splenic flexure was taken down in a distal to proximal direction using gentle blunt dissection and the Bovie. An area in the mesentery of the distal descending colon was opened with the Bovie and the stool descending colon was transected with a linear BEV 75 stapler using a blue load. An area of the proximal rectum was chosen for transection which was soft , pliable, of normal thickness. Using the Bovie the retroperitoneum was opened medially and laterally to the rectum. Gentle blunt dissection was used to dissect behind the rectum and the rectum was transected with a contour stapler blue load. The mesentery of the sigmoid colon/KARLIE and proximal rectum were taken down with the impact LigaSure. The specimen was placed off to the back table for pathology. The descending colon reached well into the pelvis. Babcocks were placed in the distal transverse colon staple line and a pursestring stapler was placed at the distal transverse colon at the staple line excised with heavy Metzenbaum scissors. Babcocks were placed on either side of the open distal descending colon and the sizers were introduced into the opening. The colon well accommodated the 29 mm sizer and a 29 EEA stapler was chosen to fashion the anastomosis. The anvil was placed through the open distal transverse colon and tied with the Prolene stitch. The sizers were introduced through the anus up through the rectum, up to the 29 mm. The EEA stapler was introduced through the anus into the rectum and the anastomosis between the distal descending colon and proximal rectum was fashioned. Evaluation of the anastomotic rings showed thinning at the right lateral distal anastomotic ring. This area of the anastomosis was reinforced with multiple 3- 0 silk Lembert stitches. A noncrushing bowel clamp was placed across the descending colon. A 30 mL catheter balloon was placed into the anus and the balloon instilled with saline. Saline was placed in the pelvis covering the anastomosis. 210 mL of air was insufflated into the rectum and anastomosis demonstrated no air leak. A noncrushing bowel clamp was removed as well as the catheter in the anus. A 10 mm ENEIDA drain was placed through the right lower quadrant abdominal wall after first incising the skin with a 10 blade and placed with a tonsil, anterior to the distal rectum. The ENEIDA drain was secured to the skin with a 2-0 silk stitch. There was a rent in the mesentery of the distal transverse colon which was closed with 3-0 silk [id number] stitches. The abdomen was irrigated with sterile saline. The small bowel was returned to the normal anatomic position. The omentum was placed over the small bowel in its normal anatomic position. Cheyenne's were placed on either side of the fascia for retraction and the fascia was closed with 2 separate #1 non-looped running PDS stitches meeting in the middle. The subcutaneous tissue was copiously irrigated with sterile saline. The subcutaneous tissue was reapproximated with 3-0 Vicryl interrupted stitches. The skin was closed with jeffrey. 4 x 4 gauze and Medipore tape were applied as a dressing. Patient was awoken in the operating suite after all lap and instrument counts were correct at the end of the case. She was extubated by anesthesia without incident. [place] catheter and NG tube remained with patient after surgery. She was taken to PACU in stable condition.
[2017-05-28] MEDS: *HR* HYDROmorphone (PF) 1 MG/ML SYRINGE IVP PRN ×6 (13:03→14:04)
[2017-05-28] MEDS ORDERED: Acetaminophen IV 1,000 MG/100 ML INFUS..BTL IVPB ONE (13:36)
[2017-05-28] MEDS ORDERED: *HR* HYDROmorphone (PF) 1 MG/ML SYRINGE ONE (13:42)
--- NOTE | 2017-05-28 14:18 | Anesthesia Evaluation Post Op ---
Date of Encounter: 05/28/17 Time of Encounter: 14:17 - Hydration Hydration: NPO Notes: Patient is stable postoperatively and has adequately recovered from anesthesia. Patient has a patent airway and stable respiratory function including respiratory rate and oxygen saturation. Patient has a stable heart rate, blood pressure and adequate hydration. Patient's mental status is acceptable. Patient's temperature is appropriate. Pain and nausea are adequately controlled. Last vital signs were reviewed. - Discharge PostOp Status: Transfer Patient to floor
[2017-05-28] MEDS ORDERED: *HR* Dextrose 50 % in Water (Syg) 50 ML SYRINGE IVP PRN (14:36)
[2017-05-28] MEDS ORDERED: Acetaminophen IV 1,000 MG/100 ML INFUS..BTL IVPB SCH (14:36)
[2017-05-28] MEDS ORDERED: D5% in Water 1,000 ML IVC PRN (14:36)
[2017-05-28] MEDS ORDERED: Dextrose Gel 15 GM PO PRN ×2 (14:36)
[2017-05-28] MEDS: *HR* HYDROmorphone 2 MG/ML SYRINGE IVP PRN ×4 (14:58→21:22)
[2017-05-28] MEDS: Ondansetron 4 MG/2 ML VIAL IVP PRN (14:59)
[2017-05-28] MEDS: Piperacillin/Tazobactam 3.375 GM in D5% in Water 50 ML IVPB SCH ×2 (16:29→23:57)
[2017-05-29] MEDS: *HR* HYDROmorphone (PF) 1 MG/ML SYRINGE IVP PRN ×3 (00:12→10:46)
[2017-05-29] MEDS: Ondansetron 4 MG/2 ML VIAL IVP PRN ×3 (00:12→21:12)
[2017-05-29 04:29] LABS: Basophils % 0.2 %; Eosinophils % 0.1 %; Hematocrit 36.5 % (35.3-44.9); Hemoglobin 11.8 g/dL (11.5-15.4); Immature Granulocytes % 0.4 % (0-4); Lymphocytes # 0.7 K/mcL (0.6-4.6); Lymphocytes % 6.2 %; Mean Corpuscular HGB Conc 32.3 g/dL (31.6-35.5); Mean Corpuscular Hemoglobin 27.8 pg (28.0-33.3); Mean Corpuscular Volume 85.9 fL (83.0-100.0); Monocytes # 1.2 K/mcL (0.0-1.3); Neutrophils # 8.7 K/mcL (1.6-8.9); Platelet Count 285 K/mcL (140-400); Red Blood Count 4.25 M/mcL (3.82-4.97); Segmented Neutrophils % 82.1 %
[2017-05-29 05:40] LABS: Calcium 8.5 mg/dL (8.6-10.8); Magnesium 1.6 mg/dL (1.6-2.6); Phosphorous 3.2 mg/dL (2.3-4.7); Potassium 4.4 mEq/L (3.5-4.5)
[2017-05-29] MEDS: Insulin LISPRO 300 UNITS/3 ML VIAL SQ SCH ×4 (05:47→21:46)
[2017-05-29] MEDS: *HR* Heparin 5,000 UNIT/ML VIAL SQ SCH ×2 (05:48→17:56)
[2017-05-29] MEDS: *HR* Metoprolol 5 MG/5 ML VIAL IVP SCH ×3 (05:48→17:56)
[2017-05-29] MEDS: Piperacillin/Tazobactam 3.375 GM in D5% in Water 50 ML IVPB SCH ×2 (08:07→15:58)
[2017-05-29] MEDS: Pantoprazole 40 MG VIAL IVP SCH (08:08)
[2017-05-29] MEDS: 0.9 % Sodium Chloride 1,000 ML IVC SCH ×2 (08:08→17:59)
--- NOTE | 2017-05-29 11:18 | General Surgery Progress Note ---
<Coweta,Myrna Kirsten - Last Filed: 05/29/17 11:29> Date of Encounter: 05/29/17 Time of Encounter: 11:00 - Assessment and Plan (1) Sigmoid diverticulitis Current Visit: No Status: Acute POD #1 Open sigmoidectomy, incidental appendectomy with Dr. Wetzel Pathology pending Maintain bowel rest while awaiting return of bowel function NG tube to LIWS Continue salmeron catheter to SD for strict I&Os Supportive care and pain control- scheduled ofirmev every 6 hours, Dilaudid LOGISTICS CLERK added Increase activity as tolerated Daily incision and drain care PPI therapy daily IS every 1 hour while awake Repeat am BMP (2) Chronic kidney disease (CKD) Current Visit: Yes Status: Chronic Cr- 1.15>1.27 IV fluids Avoid nephrotoxic medications Salmeron catheter for strict I&Os Repeat am BMP Qualifiers: Chronic kidney disease stage: stage 2 (mild) Qualified Code(s): N18.2 - Chronic kidney disease, stage 2 (mild) (3) Diabetes mellitus Current Visit: No Status: Chronic SSI every 6 hours- medium scale Will continue to monitor and adjust as necessary Qualifiers: Diabetes mellitus type: type 2 Diabetes mellitus complication status: with kidney complications Diabetes mellitus complication detail: with chronic kidney disease Diabetes mellitus nursing home insulin use: without technician terminal and repeater use Chronic kidney disease stage: stage 3 (moderate) Qualified Code(s): E11.22 - Type 2 diabetes mellitus with diabetic chronic kidney disease; N18.3 - Chronic kidney disease, stage 3 (moderate); N18.3 - Chronic kidney disease, stage 3 (moderate) (4) Crohns disease Current Visit: No Status: Chronic Qualifiers: Gastrointestinal tract location: small and large intestine Digestive disease complication type: unspecified complication Qualified Code(s): K50.819 - Crohn's disease of both small and large intestine with unspecified complications (5) Hypertension Current Visit: No Status: Chronic Normotensive Metoprolol every 6 hours scheduled Will continue to monitor and adjust as necessary Qualifiers: Hypertension type: essential hypertension Qualified Code(s): I10 - Essential (primary) hypertension (6) Hypothyroidism Current Visit: No Status: Chronic IV levothyroxine Qualifiers: Hypothyroidism type: unspecified Qualified Code(s): E03.9 - Hypothyroidism , unspecified (7) Morbid obesity with BMI of 40.0-44.9, adult Current Visit: No Status: Chronic (8) DVT prophylaxis Current Visit: No Status: Acute Heparin 5,000 units SQ twice daily for DVT prophylaxis EPCDs to bilateral lower extremities for DVT prophylaxis Subjective Patient reports: still having pain (patient states that pain is not controlled with prn pain medication), flatus (small amount of flatus this morning), no bowel movement, afebrile, other (Patient is out of bed to chair) Objective Vital Signs - Last 8 Hours Temp Pulse Resp BP Pulse Ox 05/29/17 10:34 98.4 F 74 18 125/68 93 05/29/17 06:57 98.6 F 85 18 136/57 96 05/29/17 03:35 99.2 F 87 18 113/66 95 Intake and Output 05/28/17 05/29/17 05/29/17 23:59 07:59 15:59 Intake Total 1050 / 1050 50 / 50 1000 / 1000 Output Total 80 / 80 600 / 600 40 / 40 Balance 970 / 970 -550 / -550 960 / 960 Intake: IV Fluids 1050 / 1050 50 / 50 1000 / 1000 0.9 % Sodium Chloride 1,000 ML 1000 / 1000 1000 / 1000 @ 110 mls/hr IVC .Q9H6M JN Rx# :[id number] Zosyn 3.375 GM In Dextrose 5% ( 50 / 50 50 / 50 ADD-[place]) 50 ML @ 12.5 mls/ hr IVPB Q8HR JN Rx#:[id number] Output: Catheter 600 / 600 0 / 0 Gastric Drainage 0 / 0 0 / 0 Wound Drainage 80 / 80 0 / 0 40 / 40 Right Lower Abdomen 80 / 80 0 / 0 40 / 40 Other: Weight 102.569 kg Blood Glucose* 180 175 Patient Weight 05/29/17 23:59 Weight 102.569 kg - General physical appearance well developed, well nourished, no distress - Eyes normal ocular movement - ENT dry mucosa, atraumatic, normocephalic - Neck Neck exam: trachea midline - Respiratory normal respiratory effort, clear to auscultation, other (IS-500ml) - Cardiovascular Cardiovascular exam: Present: RRR - Abdomen Abdomen: Present: bowel sounds present (minimal, hypoactive), soft, tender, wound (ENEIDA drain to bulb suction with serousang. drainage noted (120ml noted since surgery)) - Incision Incision: Present: clean and dry, intact - Genitourinary other (salmeron catheter to SD with clear, yellow urine noted) - Neurologic CN 2-12 grossly intact - Psychiatric oriented to time, oriented to person, oriented to place, speech is normal, memory intact - Labs 05/29/17 03:23 05/29/17 03:23 Diabetes panel 05/29/17 Range/Units 03:23 Sodium 138 (136-145) mEq/L Potassium 4.4 (3.5-4.5) mEq/L Chloride 106 (98-109) mEq/L Carbon Dioxide 25 (19-29) mEq/L BUN 19 (7-20) mg/dL Creatinine 1.27 H (0.57-1.11) mg/dL Glucose 184 H (70-99) mg/dL Calcium 8.5 L (8.6-10.8) mg/dL Calcium panel 05/29/17 Range/Units 03:23 Calcium 8.5 L (8.6-10.8) mg/dL Phosphorus 3.2 (2.3-4.7) mg/dL Pituitary panel 05/29/17 Range/Units 03:23 Sodium 138 (136-145) mEq/L Potassium 4.4 (3.5-4.5) mEq/L Chloride 106 (98-109) mEq/L Carbon Dioxide 25 (19-29) mEq/L BUN 19 (7-20) mg/dL Creatinine 1.27 H (0.57-1.11) mg/dL Glucose 184 H (70-99) mg/dL Calcium 8.5 L (8.6-10.8) mg/dL Adrenal panel 05/29/17 Range/Units 03:23 Sodium 138 (136-145) mEq/L Potassium 4.4 (3.5-4.5) mEq/L Chloride 106 (98-109) mEq/L Carbon Dioxide 25 (19-29) mEq/L BUN 19 (7-20) mg/dL Creatinine 1.27 H (0.57-1.11) mg/dL Glucose 184 H (70-99) mg/dL Calcium 8.5 L (8.6-10.8) mg/dL - VTE Documentation of Mechanical Device: Intermittent pneumatic compression device Consult Discharge Plan - Plan Referrals: Pattie Wetzel MD [Partnered Physician] - 11/29/17 10:30 am - Attending Attestation For this encounter, I have reviewed the CUTTING TOOL SHARPENER or PA documentation, treatment plan, and medical decision making; and I have had face to face time with this patient. <Pattie Wetzel - Last Filed: 05/29/17 16:32> Date of Encounter: 05/29/17 Time of Encounter: 14:10 - Assessment and Plan (1) S/P colectomy Current Visit: Yes Status: Acute pod1 open sigmoidectomy, incidental appendectomy continue npo/ ok ice chips ngt decompression to LIWS await return of bowel function but will be slow (at least 5 days npo) to restart po due to history crohns, anastomosis, imuran therapy on instructional coach, started continuous low dose on ofirmev iv OOB to chair BID gi/dvt prophylaxis (2) Crohn's disease of colon Current Visit: Yes Status: Chronic on imuran for Crohns, holding currently Qualifiers: Digestive disease complication type: without complication Qualified Code(s) : K50.10 - Crohn's disease of large intestine without complications (3) Hx of diverticulitis of colon Current Visit: Yes Status: Acute (4) Diabetes mellitus Current Visit: No Status: Chronic Qualifiers: Diabetes mellitus type: type 2 Diabetes mellitus complication status: with kidney complications Diabetes mellitus complication detail: with chronic kidney disease Diabetes mellitus technician terminal and repeater insulin use: without technician terminal and repeater use Chronic kidney disease stage: stage 3 (moderate) Qualified Code(s): E11.22 - Type 2 diabetes mellitus with diabetic chronic kidney disease; N18.3 - Chronic kidney disease, stage 3 (moderate); N18.3 - Chronic kidney disease, stage 3 (moderate) (5) Hypertension Current Visit: No Status: Chronic Qualifiers: Hypertension type: essential hypertension Qualified Code(s): I10 - Essential (primary) hypertension (6) Hypothyroidism Current Visit: No Status: Chronic Qualifiers: Hypothyroidism type: unspecified Qualified Code(s): E03.9 - Hypothyroidism , unspecified (7) Morbid obesity with BMI of 40.0-44.9, adult Current Visit: No Status: Chronic (8) Unable to eat Current Visit: Yes Status: Acute due to prologned planned npo have asked nutrition to start tpn Subjective Narrative: complaining of pain no nausea or emesis no flatus or bm Objective Vital Signs - Last 8 Hours Temp Pulse Resp BP Pulse Ox 05/29/17 15:09 98.8 F 93 16 105/56 92 05/29/17 10:34 98.4 F 74 18 125/68 93 Intake and Output 05/29/17 05/29/17 05/29/17 07:59 15:59 23:59 Intake Total 50 / 50 1150 / 1150 Output Total 600 / 600 380 / 380 Balance -550 / -550 770 / 770 Intake: IV Fluids 50 / 50 1150 / 1150 0.9 % Sodium Chloride 1,000 ML 1000 / 1000 @ 110 mls/hr IVC .Q9H6M JN Rx# :[id number] Ofirmev 1,000 mg/100 ml 1,000 100 / 100 mg In 100 ml @ 400 mls/hr IVPB Q6H JN Rx#:[id number] Zosyn 3.375 GM In Dextrose 5% ( 50 / 50 50 / 50 ADD-[place]) 50 ML @ 12.5 mls/ hr IVPB Q8HR JN Rx#:[id number] Output: Catheter 600 / 600 300 / 300 Gastric Drainage 0 / 0 0 / 0 Wound Drainage 0 / 0 80 / 80 Right Lower Abdomen 0 / 0 80 / 80 Other: Meal NPO Weight 102.569 kg Blood Glucose* 175 166 Patient Weight 05/29/17 23:59 Weight 102.569 kg - General physical appearance well developed, well nourished, no distress, obese - Eyes PERRL, normal ocular movement - ENT normal mucosa, normocephalic - Neck Neck exam: trachea midline - Respiratory normal expansion, clear to auscultation - Cardiovascular Cardiovascular exam: Present: RRR - Abdomen Abdomen: Present: soft, tender (appropriate post op tenderness). Absent: bowel sounds present - Incision Incision: Present: clean and dry, intact - Integumentary no rash, no growths - Neurologic CN 2-12 grossly intact - Musculoskeletal normal posture - Psychiatric oriented to time, oriented to person, oriented to place, speech is normal, memory intact - Labs 05/29/17 03:23 05/29/17 03:23 Diabetes panel 05/29/17 Range/Units 03:23 Sodium 138 (136-145) mEq/L Potassium 4.4 (3.5-4.5) mEq/L Chloride 106 (98-109) mEq/L Carbon Dioxide 25 (19-29) mEq/L BUN 19 (7-20) mg/dL Creatinine 1.27 H (0.57-1.11) mg/dL Glucose 184 H (70-99) mg/dL Calcium 8.5 L (8.6-10.8) mg/dL Calcium panel 05/29/17 Range/Units 03:23 Calcium 8.5 L (8.6-10.8) mg/dL Phosphorus 3.2 (2.3-4.7) mg/dL Pituitary panel 05/29/17 Range/Units 03:23 Sodium 138 (136-145) mEq/L Potassium 4.4 (3.5-4.5) mEq/L Chloride 106 (98-109) mEq/L Carbon Dioxide 25 (19-29) mEq/L BUN 19 (7-20) mg/dL Creatinine 1.27 H (0.57-1.11) mg/dL Glucose 184 H (70-99) mg/dL Calcium 8.5 L (8.6-10.8) mg/dL Adrenal panel 05/29/17 Range/Units 03:23 Sodium 138 (136-145) mEq/L Potassium 4.4 (3.5-4.5) mEq/L Chloride 106 (98-109) mEq/L Carbon Dioxide 25 (19-29) mEq/L BUN 19 (7-20) mg/dL Creatinine 1.27 H (0.57-1.11) mg/dL Glucose 184 H (70-99) mg/dL Calcium 8.5 L (8.6-10.8) mg/dL - Attending Attestation I have personally performed a face to face evaluation on this patient. I have reviewed and agree with the care plan. History and Exam by me shows:
[2017-05-29] MEDS ORDERED: *HR* HYDROmorphone 20 MG/20 ML PCA IVC PRN (11:21)
[2017-05-29] MEDS: Acetaminophen IV 1,000 MG/100 ML INFUS..BTL IVPB SCH ×2 (13:41→20:29)
[2017-05-29] MEDS ORDERED: D10% in Water 500 ML IVC PRN (16:01)
[2017-05-29] MEDS ORDERED: Clinimix E 5%-20% SOLUTION 2,000 ML with MVI, adult with vitamin K 10 ML IVC SCH (17:00)
[2017-05-29] MEDS: Insulin DETEMIR 100 UNIT/ML X5UNITS SQ SCH (21:13)
[2017-05-30] MEDS: Piperacillin/Tazobactam 3.375 GM in D5% in Water 50 ML IVPB SCH ×3 (00:52→22:40)
[2017-05-30] MEDS: *HR* Metoprolol 5 MG/5 ML VIAL IVP SCH ×4 (00:52→18:02)
[2017-05-30] MEDS: Insulin LISPRO 300 UNITS/3 ML VIAL SQ SCH ×6 (00:57→22:40)
[2017-05-30] MEDS: Acetaminophen IV 1,000 MG/100 ML INFUS..BTL IVPB SCH ×4 (01:51→19:24)
[2017-05-30] MEDS: Ondansetron 4 MG/2 ML VIAL IVP PRN ×2 (03:01→13:07)
[2017-05-30 04:04] LABS: Basophils # 0.1 K/mcL (0.0-0.2); Basophils % 0.4 %; Eosinophils # 0.2 K/mcL (0.0-0.6); Eosinophils % 1.9 %; Hematocrit 33.8 % (35.3-44.9); Hemoglobin 10.7 g/dL (11.5-15.4); Immature Granulocytes % 0.4 % (0-4); Lymphocytes # 0.9 K/mcL (0.6-4.6); Lymphocytes % 7.1 %; Mean Corpuscular HGB Conc 31.7 g/dL (31.6-35.5); Mean Corpuscular Hemoglobin 27.8 pg (28.0-33.3); Mean Corpuscular Volume 87.8 fL (83.0-100.0); Mean Platelet Volume 9.7 fL (9.4-12.4); Monocytes # 1.1 K/mcL (0.0-1.3); Monocytes % 8.4 %; Neutrophils # 10.4 K/mcL (1.6-8.9); Platelet Count 236 K/mcL (140-400); Red Blood Count 3.85 M/mcL (3.82-4.97); Red Cell Distribution Width 14.5 % (11.5-14.5); Segmented Neutrophils % 81.8 %
[2017-05-30 04:07] LABS: Calcium 8.6 mg/dL (8.6-10.8); Magnesium 1.5 mg/dL (1.6-2.6); Phosphorous 1.7 mg/dL (2.3-4.7); Potassium 3.7 mEq/L (3.5-4.5)
[2017-05-30] MEDS: *HR* Heparin 5,000 UNIT/ML VIAL SQ SCH ×2 (05:58→18:01)
[2017-05-30] MEDS ORDERED: Insulin DETEMIR 100 UNIT/ML X5UNITS SQ SCH (09:51)
[2017-05-30] MEDS ORDERED: Potassium Phosphate 44 MEQ in 0.9 % Sodium Chloride 250 ML IVPB ONE (09:51)
[2017-05-30] MEDS: Levothyroxine Sodium 100 MCG VIAL IVP SCH (11:10)
[2017-05-30] MEDS: Pantoprazole 40 MG VIAL IVP SCH (11:17)
[2017-05-30] MEDS: Insulin DETEMIR 100 UNIT/ML X5UNITS SQ SCH ×2 (11:28→22:40)
--- NOTE | 2017-05-30 11:49 | General Surgery Progress Note ---
<Myrna Augustin - Last Filed: 05/30/17 13:49> Date of Encounter: 05/30/17 Time of Encounter: 11:10 - Assessment and Plan (1) Sigmoid diverticulitis Current Visit: No Status: Acute POD #2 Open sigmoidectomy, incidental appendectomy with Dr. Wetzel Pathology pending Maintain bowel rest while awaiting return of bowel function NG tube to LIWS IV fluids TPN therapy for nutritional support- Total fluid rate 110ml/hour (MIV + TPN) Electric Cutter Operator for TPN management Continue salmeron catheter to SD for strict I&Os Supportive care and pain control- scheduled ofirmev every 6 hours, Dilaudid BLOOD BANK BOOKING CLERK added Increase activity as tolerated Daily incision and drain care PPI therapy daily IS every 1 hour while awake Repeat am BMP (2) Chronic kidney disease (CKD) Current Visit: Yes Status: Chronic Cr- 1.15>1.27>1.29 IV fluids Avoid nephrotoxic medications Salmeron catheter for strict I&Os Repeat am BMP Qualifiers: Chronic kidney disease stage: stage 2 (mild) Qualified Code(s): N18.2 - Chronic kidney disease, stage 2 (mild) (3) Diabetes mellitus Current Visit: No Status: Chronic SSI every 4 hours- high scale Levemir 20units SQ BID Will continue to monitor and adjust as necessary Qualifiers: Diabetes mellitus type: type 2 Diabetes mellitus complication status: with kidney complications Diabetes mellitus complication detail: with chronic kidney disease Diabetes mellitus termite helper insulin use: without assisted use Chronic kidney disease stage: stage 3 (moderate) Qualified Code(s): E11.22 - Type 2 diabetes mellitus with diabetic chronic kidney disease; N18.3 - Chronic kidney disease, stage 3 (moderate); N18.3 - Chronic kidney disease, stage 3 (moderate) (4) Crohns disease Current Visit: No Status: Chronic Qualifiers: Gastrointestinal tract location: small and large intestine Digestive disease complication type: unspecified complication Qualified Code(s): K50.819 - Crohn's disease of both small and large intestine with unspecified complications (5) Hypertension Current Visit: No Status: Chronic Normotensive Metoprolol every 6 hours scheduled Will continue to monitor and adjust as necessary Qualifiers: Hypertension type: essential hypertension Qualified Code(s): I10 - Essential (primary) hypertension (6) Hypothyroidism Current Visit: No Status: Chronic IV levothyroxine Qualifiers: Hypothyroidism type: unspecified Qualified Code(s): E03.9 - Hypothyroidism , unspecified (7) Morbid obesity with BMI of 40.0-44.9, adult Current Visit: No Status: Chronic (8) Hypophosphatemia Current Visit: Yes Status: Acute Replace Phos Repeat am labs (9) Hypomagnesemia Current Visit: Yes Status: Acute Replace Magnesium Repeat am labs (10) DVT prophylaxis Current Visit: No Status: Acute Heparin 5,000 units SQ twice daily for DVT prophylaxis EPCDs to bilateral lower extremities for DVT prophylaxis Subjective Patient reports: no new complaints, feels better, still having pain, pain is less, flatus (small amounts of flatus), no bowel movement, afebrile Objective Vital Signs - Last 8 Hours Temp Pulse Resp BP Pulse Ox 05/30/17 10:18 97.3 F L 86 16 127/62 93 05/30/17 07:30 98.6 F 80 16 133/65 97 Intake and Output 05/29/17 05/30/17 05/30/17 23:59 07:59 15:59 Intake Total 50 / 50 350 / 350 Output Total 365 / 365 280 / 280 0 / 0 Balance -315 / -315 70 / 70 0 / 0 Intake: IV Fluids 50 / 50 350 / 350 Ofirmev 1,000 mg/100 ml 1,000 300 / 300 mg In 100 ml @ 400 mls/hr IVPB Q6H JN Rx#:[id number] Zosyn 3.375 GM In Dextrose 5% ( 50 / 50 50 / 50 ADD-[place]) 50 ML @ 12.5 mls/ hr IVPB Q8HR JN Rx#:[id number] Oral 0 / 0 0 / 0 Output: Catheter 300 / 300 200 / 200 0 / 0 Gastric Drainage 0 / 0 0 / 0 Wound Drainage 65 / 65 80 / 80 0 / 0 Right Lower Abdomen 65 / 65 80 / 80 0 / 0 Other: Meal NPO Blood Glucose* 230 230 - General physical appearance well developed, well nourished, no distress, obese - Eyes normal ocular movement - ENT dry mucosa, atraumatic, normocephalic - Neck Neck exam: trachea midline - Respiratory normal respiratory effort, clear to auscultation, other (IS- 1500ml) - Cardiovascular Cardiovascular exam: Present: RRR - Abdomen Abdomen: Present: bowel sounds present (minimal, hypoactive), soft, tender ( Expected postoperative tenderness), wound (NG tube to LIWS (with watery drainage noted- small amount); ENEIDA drain to bulb suction with serosanguineous drainage noted (80ml since midnight)) - Incision Incision: Present: clean and dry, intact - Genitourinary other (Salmeron catheter to straight drain with clear, yellow urine) - Neurologic CN 2-12 grossly intact - Psychiatric oriented to time, oriented to person, oriented to place, speech is normal, memory intact - Labs 05/30/17 03:38 05/30/17 03:38 Diabetes panel 05/30/17 05/30/17 Range/Units 03:38 03:38 Sodium 139 (136-145) mEq/L Potassium 3.7 (3.5-4.5) mEq/L Chloride 108 (98-109) mEq/L Carbon Dioxide 24 (19-29) mEq/L BUN 16 (7-20) mg/dL Creatinine 1.29 H (0.57-1.11) mg/dL Glucose 220 H (70-99) mg/dL Calcium 8.6 (8.6-10.8) mg/dL Triglycerides 452 H (< 150) mg/dL Calcium panel 05/30/17 05/30/17 Range/Units 03:38 03:38 Calcium 8.6 (8.6-10.8) mg/dL Phosphorus 1.7 L (2.3-4.7) mg/dL Pituitary panel 05/30/17 Range/Units 03:38 Sodium 139 (136-145) mEq/L Potassium 3.7 (3.5-4.5) mEq/L Chloride 108 (98-109) mEq/L Carbon Dioxide 24 (19-29) mEq/L BUN 16 (7-20) mg/dL Creatinine 1.29 H (0.57-1.11) mg/dL Glucose 220 H (70-99) mg/dL Calcium 8.6 (8.6-10.8) mg/dL Adrenal panel 05/30/17 Range/Units 03:38 Sodium 139 (136-145) mEq/L Potassium 3.7 (3.5-4.5) mEq/L Chloride 108 (98-109) mEq/L Carbon Dioxide 24 (19-29) mEq/L BUN 16 (7-20) mg/dL Creatinine 1.29 H (0.57-1.11) mg/dL Glucose 220 H (70-99) mg/dL Calcium 8.6 (8.6-10.8) mg/dL - VTE Documentation of Mechanical Device: Intermittent pneumatic compression device Consult Discharge Plan - Plan Referrals: Pattie Wetzel MD [Partnered Physician] - 06/13/17 10:30 am <Pattie Wetzel - Last Filed: 05/30/17 19:00> Date of Encounter: 05/30/17 - Assessment and Plan (1) S/P colectomy Current Visit: Yes Status: Acute pod 2 open sigmoidectomy and incidental appendectomy continue conservative therapy at this time, ivf hydration, tpn, ngt to lIWS hog confinement system manager for pain control OOB to chair GI/DVT prophylaxi await till sunday to start po even if starts flatus prior to (2) Crohn's disease of colon Current Visit: Yes Status: Chronic holding imuran currently Qualifiers: Digestive disease complication type: without complication Qualified Code(s) : K50.10 - Crohn's disease of large intestine without complications (3) Hx of diverticulitis of colon Current Visit: Yes Status: Acute (4) Diabetes mellitus Current Visit: No Status: Chronic Qualifiers: Diabetes mellitus type: type 2 Diabetes mellitus complication status: with kidney complications Diabetes mellitus complication detail: with chronic kidney disease Diabetes mellitus assisted insulin use: without termite helper use Chronic kidney disease stage: stage 3 (moderate) Qualified Code(s): E11.22 - Type 2 diabetes mellitus with diabetic chronic kidney disease; N18.3 - Chronic kidney disease, stage 3 (moderate); N18.3 - Chronic kidney disease, stage 3 (moderate) (5) Hypertension Current Visit: No Status: Chronic Qualifiers: Hypertension type: essential hypertension Qualified Code(s): I10 - Essential (primary) hypertension (6) Hypothyroidism Current Visit: No Status: Chronic Qualifiers: Hypothyroidism type: unspecified Qualified Code(s): E03.9 - Hypothyroidism , unspecified (7) Morbid obesity with BMI of 40.0-44.9, adult Current Visit: No Status: Chronic (8) Unable to eat Current Visit: Yes Status: Acute continue tpn until taking in adequate po intake Subjective Patient reports: feels better, still having pain, pain is less, flatus, no bowel movement, afebrile Objective Vital Signs - Last 8 Hours Temp Pulse Resp BP Pulse Ox 05/30/17 14:00 98.1 F 100 18 149/75 94 Intake and Output 05/30/17 05/30/17 05/30/17 07:59 15:59 23:59 Intake Total 350 / 350 0 / 0 Output Total 280 / 280 30 / 30 Balance 70 / 70 -30 / -30 Intake: IV Fluids 350 / 350 Ofirmev 1,000 mg/100 ml 1,000 300 / 300 mg In 100 ml @ 400 mls/hr IVPB Q6H JN Rx#:[id number] Zosyn 3.375 GM In Dextrose 5% ( 50 / 50 ADD-[place]) 50 ML @ 12.5 mls/ hr IVPB Q8HR JN Rx#:[id number] Oral 0 / 0 0 / 0 Output: Urine 0 / 0 Catheter 200 / 200 0 / 0 Gastric Drainage 0 / 0 0 / 0 Wound Drainage 80 / 80 30 / 30 Right Lower Abdomen 80 / 80 30 / 30 Other: Meal NPO Blood Glucose* 230 242 - General physical appearance well developed, well nourished, no distress, obese - Eyes PERRL, normal ocular movement - ENT normal mucosa, normocephalic - Neck Neck exam: trachea midline - Respiratory normal expansion, normal respiratory effort - Cardiovascular Cardiovascular exam: Present: RRR - Abdomen Abdomen: Present: bowel sounds present, soft, tender, wound - Incision Incision: Present: clean and dry, intact - Integumentary no growths - Neurologic CN 2-12 grossly intact - Musculoskeletal normal posture - Psychiatric oriented to time, oriented to person, oriented to place, speech is normal, memory intact - Labs 05/30/17 03:38 05/30/17 03:38 Diabetes panel 05/30/17 05/30/17 Range/Units 03:38 03:38 Sodium 139 (136-145) mEq/L Potassium 3.7 (3.5-4.5) mEq/L Chloride 108 (98-109) mEq/L Carbon Dioxide 24 (19-29) mEq/L BUN 16 (7-20) mg/dL Creatinine 1.29 H (0.57-1.11) mg/dL Glucose 220 H (70-99) mg/dL Calcium 8.6 (8.6-10.8) mg/dL Triglycerides 452 H (< 150) mg/dL Calcium panel 05/30/17 05/30/17 Range/Units 03:38 03:38 Calcium 8.6 (8.6-10.8) mg/dL Phosphorus 1.7 L (2.3-4.7) mg/dL Pituitary panel 05/30/17 Range/Units 03:38 Sodium 139 (136-145) mEq/L Potassium 3.7 (3.5-4.5) mEq/L Chloride 108 (98-109) mEq/L Carbon Dioxide 24 (19-29) mEq/L BUN 16 (7-20) mg/dL Creatinine 1.29 H (0.57-1.11) mg/dL Glucose 220 H (70-99) mg/dL Calcium 8.6 (8.6-10.8) mg/dL Adrenal panel 05/30/17 Range/Units 03:38 Sodium 139 (136-145) mEq/L Potassium 3.7 (3.5-4.5) mEq/L Chloride 108 (98-109) mEq/L Carbon Dioxide 24 (19-29) mEq/L BUN 16 (7-20) mg/dL Creatinine 1.29 H (0.57-1.11) mg/dL Glucose 220 H (70-99) mg/dL Calcium 8.6 (8.6-10.8) mg/dL - Attending Attestation I have personally performed a face to face evaluation on this patient. I have reviewed and agree with the care plan. History and Exam by me shows:
[2017-05-30] MEDS ORDERED: AMINO ACIDS 5 %/DEXTROSE 15 % 2,000 ML with MVI, adult with vitamin K 10 ML, Sodium A... IVC SCH (17:00)
[2017-05-30] MEDS: *HR* HYDROmorphone 20 MG/20 ML PCA IVC PRN (19:58)
[2017-05-31] MEDS: Insulin LISPRO 300 UNITS/3 ML VIAL SQ SCH ×6 (01:02→20:23)
[2017-05-31] MEDS: *HR* Metoprolol 5 MG/5 ML VIAL IVP SCH ×4 (01:02→17:13)
[2017-05-31] MEDS: Acetaminophen IV 1,000 MG/100 ML INFUS..BTL IVPB SCH ×4 (01:19→19:46)
[2017-05-31] MEDS: *HR* Heparin 5,000 UNIT/ML VIAL SQ SCH ×2 (05:26→17:13)
[2017-05-31] MEDS: Piperacillin/Tazobactam 3.375 GM in D5% in Water 50 ML IVPB SCH ×3 (05:26→20:22)
[2017-05-31] MEDS: 0.9 % Sodium Chloride 1,000 ML IVC SCH (05:33)
[2017-05-31 05:44] LABS: Basophils % 0.2 %; Eosinophils # 0.4 K/mcL (0.0-0.6); Eosinophils % 3.8 %; Hemoglobin 10.4 g/dL (11.5-15.4); Immature Granulocytes % 0.5 % (0-4); Lymphocytes # 1.3 K/mcL (0.6-4.6); Lymphocytes % 13.7 %; Mean Corpuscular HGB Conc 32.5 g/dL (31.6-35.5); Mean Corpuscular Hemoglobin 28.7 pg (28.0-33.3); Mean Corpuscular Volume 88.4 fL (83.0-100.0); Mean Platelet Volume 9.8 fL (9.4-12.4); Monocytes # 0.8 K/mcL (0.0-1.3); Monocytes % 8.1 %; Neutrophils # 6.9 K/mcL (1.6-8.9); Platelet Count 254 K/mcL (140-400); Red Blood Count 3.62 M/mcL (3.82-4.97); Red Cell Distribution Width 14.2 % (11.5-14.5); Segmented Neutrophils % 73.7 %
[2017-05-31 05:54] LABS: BUN/Creatinine Ratio 17 (6-26); Blood Urea Nitrogen 17 mg/dL (7-20); Calcium 8.8 mg/dL (8.6-10.8); Carbon Dioxide 27 mEq/L (19-29); Chloride 106 mEq/L (98-109); Glucose 200 mg/dL (70-99); Osmolality,Calculated 295 (280-300); Phosphorous 2.4 mg/dL (2.3-4.7); Sodium 139 mEq/L (136-145); eGFR For African Americans > 60 (> 60); eGFR For Non-African Americans 57 (> 60)
[2017-05-31] MEDS: Pantoprazole 40 MG VIAL IVP SCH (09:15)
[2017-05-31] MEDS: Levothyroxine Sodium 100 MCG VIAL IVP SCH (09:15)
[2017-05-31] MEDS: Insulin DETEMIR 100 UNIT/ML X5UNITS SQ SCH ×2 (09:16→20:33)
[2017-05-31] MEDS: Ondansetron 4 MG/2 ML VIAL IVP PRN (11:51)
--- NOTE | 2017-05-31 13:51 | General Surgery Progress Note ---
Date of Encounter: 05/31/17 Time of Encounter: 13:40 - Assessment and Plan (1) Sigmoid diverticulitis Current Visit: No Status: Acute POD #3 Open sigmoidectomy, incidental appendectomy with Dr. Wetzel Pathology pending Maintain bowel rest while awaiting return of bowel function NG tube to LIWS IV fluids TPN therapy for nutritional support- Total fluid rate 110ml/hour (MIV + TPN) Escort Patients for TPN management Remove salmeron catheter Supportive care and pain control- scheduled ofirmev every 6 hours, Dilaudid CUSTOM PROTECTION OFFICER added Increase activity as tolerated Daily incision and drain care PPI therapy daily IS every 1 hour while awake Repeat am labs (2) Chronic kidney disease (CKD) Current Visit: Yes Status: Chronic Cr- 1.15>1.27>1.29>0.98 IV fluids Avoid nephrotoxic medications Remove salmeron catheter Repeat am BMP Qualifiers: Chronic kidney disease stage: stage 2 (mild) Qualified Code(s): N18.2 - Chronic kidney disease, stage 2 (mild) (3) Diabetes mellitus Current Visit: No Status: Chronic SSI every 4 hours- high scale Levemir 30units SQ BID Will continue to monitor and adjust as necessary Qualifiers: Diabetes mellitus type: type 2 Diabetes mellitus complication status: with kidney complications Diabetes mellitus complication detail: with chronic kidney disease Diabetes mellitus rn private duty insulin use: without rn private duty use Chronic kidney disease stage: stage 3 (moderate) Qualified Code(s): E11.22 - Type 2 diabetes mellitus with diabetic chronic kidney disease; N18.3 - Chronic kidney disease, stage 3 (moderate); N18.3 - Chronic kidney disease, stage 3 (moderate) (4) Crohns disease Current Visit: No Status: Chronic Qualifiers: Gastrointestinal tract location: small and large intestine Digestive disease complication type: unspecified complication Qualified Code(s): K50.819 - Crohn's disease of both small and large intestine with unspecified complications (5) Hypertension Current Visit: No Status: Chronic Normotensive Metoprolol every 6 hours scheduled Will continue to monitor and adjust as necessary Qualifiers: Hypertension type: essential hypertension Qualified Code(s): I10 - Essential (primary) hypertension (6) Hypothyroidism Current Visit: No Status: Chronic IV levothyroxine Qualifiers: Hypothyroidism type: unspecified Qualified Code(s): E03.9 - Hypothyroidism , unspecified (7) Morbid obesity with BMI of 40.0-44.9, adult Current Visit: No Status: Chronic (8) Hypophosphatemia Current Visit: Yes Status: Resolved Resolved (9) Hypomagnesemia Current Visit: Yes Status: Resolved Resolved (10) DVT prophylaxis Current Visit: No Status: Acute Heparin 5,000 units SQ twice daily for DVT prophylaxis EPCDs to bilateral lower extremities for DVT prophylaxis Subjective Patient reports: no new complaints, feels better, still having pain, pain is less, flatus, bowel movement (this morning (dark BM)), afebrile Objective Vital Signs - Last 8 Hours Temp Pulse Resp BP Pulse Ox 05/31/17 11:27 97.7 F 87 18 133/73 94 05/31/17 07:58 98.4 F 76 16 145/74 93 Intake and Output 05/30/17 05/31/17 05/31/17 23:59 07:59 15:59 Intake Total 0 / 0 400 / 400 150 / 150 Output Total 1300 / 1300 300 / 300 Balance -1300 / -1300 100 / 100 150 / 150 Intake: IV Fluids 400 / 400 150 / 150 Ofirmev 1,000 mg/100 ml 1,000 100 / 100 100 / 100 mg In 100 ml @ 400 mls/hr IVPB Q6H [facility] Rx#:[id number] Intralipid 20% 250 ML @ 21 mls/ 250 / 250 hr IVPB MoWeFr@1700 [facility] Rx#: [id number] Zosyn 3.375 GM In Dextrose 5% ( 50 / 50 50 / 50 ADD-[place]) 50 ML @ 12.5 mls/ hr IVPB Q8H [facility] Rx#:[id number] Oral 0 / 0 0 / 0 Output: Urine 550 / 550 Catheter 200 / 200 Gastric Drainage 650 / 650 Wound Drainage 100 / 100 100 / 100 Right Lower Abdomen 100 / 100 100 / 100 Other: Meal NPO Stool Size Small Stool Consistency loose liquid Stool Characteristics Mucoid Stool Color Brown # Bowel Movements 1 Weight 221.3 kg Blood Glucose* 199 196 174 Patient Weight 05/31/17 23:59 Weight 221.3 kg - General physical appearance well developed, well nourished, no distress, obese - Eyes normal ocular movement - ENT dry mucosa, atraumatic, normocephalic - Neck Neck exam: trachea midline - Respiratory normal respiratory effort, clear to auscultation, other (IS- 1700ml) - Cardiovascular Cardiovascular exam: Present: RRR - Abdomen Abdomen: Present: bowel sounds present, soft, tender (Minimal, expected postoperative tenderness), wound (NG tube to low intermittent wall suction with minimal amount of diluted, bilious drainage noted; ENEIDA drain to bulb suction with serous drainage noted) - Incision Incision: Present: clean and dry, intact, erythema (Mild erythema noted at the bottom of the midline incision) - Neurologic CN 2-12 grossly intact - Psychiatric oriented to time, oriented to person, oriented to place, speech is normal, memory intact - Labs 05/31/17 05:39 05/31/17 05:39 Diabetes panel 05/31/17 Range/Units 05:39 Sodium 139 (136-145) mEq/L Potassium 4.0 (3.5-4.5) mEq/L Chloride 106 (98-109) mEq/L Carbon Dioxide 27 (19-29) mEq/L BUN 17 (7-20) mg/dL Creatinine 0.98 (0.57-1.11) mg/dL Glucose 200 H (70-99) mg/dL Calcium 8.8 (8.6-10.8) mg/dL Calcium panel 05/31/17 Range/Units 05:39 Calcium 8.8 (8.6-10.8) mg/dL Phosphorus 2.4 (2.3-4.7) mg/dL Pituitary panel 05/31/17 Range/Units 05:39 Sodium 139 (136-145) mEq/L Potassium 4.0 (3.5-4.5) mEq/L Chloride 106 (98-109) mEq/L Carbon Dioxide 27 (19-29) mEq/L BUN 17 (7-20) mg/dL Creatinine 0.98 (0.57-1.11) mg/dL Glucose 200 H (70-99) mg/dL Calcium 8.8 (8.6-10.8) mg/dL Adrenal panel 05/31/17 Range/Units 05:39 Sodium 139 (136-145) mEq/L Potassium 4.0 (3.5-4.5) mEq/L Chloride 106 (98-109) mEq/L Carbon Dioxide 27 (19-29) mEq/L BUN 17 (7-20) mg/dL Creatinine 0.98 (0.57-1.11) mg/dL Glucose 200 H (70-99) mg/dL Calcium 8.8 (8.6-10.8) mg/dL - VTE Documentation of Mechanical Device: Intermittent pneumatic compression device Consult Discharge Plan - Plan Referrals: Pattie Wetzel MD [Partnered Physician] - 06/13/17 10:30 am
[2017-05-31] MEDS ORDERED: AMINO ACIDS 5 %/DEXTROSE 15 % 2,000 ML with MVI, adult with vitamin K 10 ML, Sodium A... IVC SCH (17:00)
[2017-05-31] MEDS: *HR* HYDROmorphone 20 MG/20 ML PCA IVC PRN (23:18)
[2017-06-01] MEDS: Acetaminophen IV 1,000 MG/100 ML INFUS..BTL IVPB SCH ×2 (01:10→07:37)
[2017-06-01] MEDS: *HR* Metoprolol 5 MG/5 ML VIAL IVP SCH ×2 (01:11→06:15)
[2017-06-01] MEDS: Insulin LISPRO 300 UNITS/3 ML VIAL SQ SCH ×6 (01:11→20:09)
[2017-06-01] MEDS: Piperacillin/Tazobactam 3.375 GM in D5% in Water 50 ML IVPB SCH ×3 (04:43→20:06)
[2017-06-01 04:53] LABS: Basophils % 0.6 %; Eosinophils # 0.4 K/mcL (0.0-0.6); Eosinophils % 6.4 %; Hematocrit 30.9 % (35.3-44.9); Hemoglobin 9.7 g/dL (11.5-15.4); Immature Granulocytes % 0.3 % (0-4); Lymphocytes # 1.3 K/mcL (0.6-4.6); Lymphocytes % 20.9 %; Mean Corpuscular HGB Conc 31.4 g/dL (31.6-35.5); Mean Corpuscular Hemoglobin 27.7 pg (28.0-33.3); Mean Corpuscular Volume 88.3 fL (83.0-100.0); Mean Platelet Volume 9.5 fL (9.4-12.4); Monocytes # 0.5 K/mcL (0.0-1.3); Monocytes % 8.5 %; Neutrophils # 3.9 K/mcL (1.6-8.9); Platelet Count 249 K/mcL (140-400); Red Cell Distribution Width 14.2 % (11.5-14.5); Segmented Neutrophils % 63.3 %
[2017-06-01 05:29] LABS: BUN/Creatinine Ratio 22 (6-26); Blood Urea Nitrogen 19 mg/dL (7-20); Calcium 8.7 mg/dL (8.6-10.8); Carbon Dioxide 29 mEq/L (19-29); Chloride 107 mEq/L (98-109); Glucose 139 mg/dL (70-99); Magnesium 1.7 mg/dL (1.6-2.6); Osmolality,Calculated 293 (280-300); Phosphorous 2.2 mg/dL (2.3-4.7); Sodium 139 mEq/L (136-145); eGFR For African Americans > 60 (> 60); eGFR For Non-African Americans > 60 (> 60)
[2017-06-01] MEDS: *HR* Heparin 5,000 UNIT/ML VIAL SQ SCH ×2 (06:15→17:37)
[2017-06-01] MEDS: 0.9 % Sodium Chloride 1,000 ML IVC SCH (06:16)
[2017-06-01] MEDS: Insulin DETEMIR 100 UNIT/ML X5UNITS SQ SCH ×2 (08:38→20:08)
[2017-06-01] MEDS: Levothyroxine Sodium 100 MCG VIAL IVP SCH (08:38)
[2017-06-01] MEDS: Pantoprazole 40 MG VIAL IVP SCH (08:39)
[2017-06-01] MEDS ORDERED: Acetaminophen 325 MG TABLET PO PRN (10:22)
--- NOTE | 2017-06-01 10:58 | General Surgery Progress Note ---
<Myrna Augustin - Last Filed: 06/01/17 11:06> Date of Encounter: 06/01/17 Time of Encounter: 10:30 - Assessment and Plan (1) Sigmoid diverticulitis Current Visit: No Status: Acute POD #4 Open sigmoidectomy, incidental appendectomy with Dr. Wetzel Pathology- -Benign colon with diverticulosis with Two benign nodes. NG removed per patient last evening and tolerating without nausea/vomiting Clear liquid diet- diabetic modifications D/C MIV TPN therapy for nutritional support- Total fluid rate 70ml/hour Senior It Recruiter for TPN management Supportive care and pain control- scheduled ofirmev every 6 hours, Dilaudid MOLD SHOP SUPERVISOR added Increase activity as tolerated Daily incision and drain care PPI therapy daily IS every 1 hour while awake Repeat am labs (2) Chronic kidney disease (CKD) Current Visit: Yes Status: Chronic Cr- 1.27>1.29>0.98>0.85 Avoid nephrotoxic medications Repeat am BMP Qualifiers: Chronic kidney disease stage: stage 2 (mild) Qualified Code(s): N18.2 - Chronic kidney disease, stage 2 (mild) (3) Diabetes mellitus Current Visit: No Status: Chronic Clear liquid diet with diabetic modifications SSI every ACHS- high scale Levemir 30units SQ BID Will continue to monitor and adjust as necessary Qualifiers: Diabetes mellitus type: type 2 Diabetes mellitus complication status: with kidney complications Diabetes mellitus complication detail: with chronic kidney disease Diabetes mellitus assisted insulin use: without intermediate manager use Chronic kidney disease stage: stage 3 (moderate) Qualified Code(s): E11.22 - Type 2 diabetes mellitus with diabetic chronic kidney disease; N18.3 - Chronic kidney disease, stage 3 (moderate); N18.3 - Chronic kidney disease, stage 3 (moderate) (4) Crohns disease Current Visit: No Status: Chronic Qualifiers: Gastrointestinal tract location: small and large intestine Digestive disease complication type: unspecified complication Qualified Code(s): K50.819 - Crohn's disease of both small and large intestine with unspecified complications (5) Hypertension Current Visit: No Status: Chronic Normotensive Resume home medication regimen Will continue to monitor and adjust as necessary Qualifiers: Hypertension type: essential hypertension Qualified Code(s): I10 - Essential (primary) hypertension (6) Hypothyroidism Current Visit: No Status: Chronic Resume home levothyroxine dose Qualifiers: Hypothyroidism type: unspecified Qualified Code(s): E03.9 - Hypothyroidism , unspecified (7) Morbid obesity with BMI of 40.0-44.9, adult Current Visit: No Status: Chronic (8) Hypophosphatemia Current Visit: Yes Status: Acute Replace Phos Repeat am labs (9) Hypomagnesemia Current Visit: Yes Status: Resolved Resolved (10) DVT prophylaxis Current Visit: No Status: Acute Heparin 5,000 units SQ twice daily for DVT prophylaxis EPCDs to bilateral lower extremities for DVT prophylaxis Subjective Patient reports: no new complaints, feels better, still having pain, pain is less, voiding w/o difficulty, flatus, bowel movement, afebrile Objective Vital Signs - Last 8 Hours Temp Pulse Resp BP Pulse Ox 06/01/17 07:31 98.0 F 67 16 131/75 97 06/01/17 03:33 98.0 F 73 17 135/69 96 Intake and Output 05/31/17 06/01/17 06/01/17 23:59 07:59 15:59 Intake Total 1150 / 1150 150 / 150 150 / 150 Output Total 0 / 0 300 / 300 Balance 1150 / 1150 -150 / -150 150 / 150 Intake: IV Fluids 1150 / 1150 150 / 150 150 / 150 0.9 % Sodium Chloride 1,000 ML 1000 / 1000 @ 110 mls/hr IVC .Q9H6M [facility] Rx# :[id number] Ofirmev 1,000 mg/100 ml 1,000 100 / 100 100 / 100 100 / 100 mg In 100 ml @ 400 mls/hr IVPB Q6H [facility] Rx#:[id number] Zosyn 3.375 GM In Dextrose 5% ( 50 / 50 50 / 50 50 / 50 ADD-[place]) 50 ML @ 12.5 mls/ hr IVPB Q8H [facility] Rx#:[id number] Oral 0 / 0 0 / 0 Output: Urine 0 / 0 250 / 250 Wound Drainage 50 / 50 Right Lower Abdomen 50 / 50 Other: Meal NPO NPO Blood Glucose* 160 162 - General physical appearance well developed, well nourished, no distress - Eyes normal ocular movement - ENT normal mucosa - Neck Neck exam: trachea midline - Respiratory normal respiratory effort, clear to auscultation - Cardiovascular Cardiovascular exam: Present: RRR - Abdomen Abdomen: Present: bowel sounds present, soft, tender (Expected postoperative tenderness), wound (ENEIDA drain to bulb suction with serous drainage noted) - Incision Incision: Present: clean and dry, intact, erythema (mild at bottom of incision ( stable)) - Neurologic CN 2-12 grossly intact - Psychiatric oriented to time, oriented to person, oriented to place, speech is normal, memory intact - Labs 06/01/17 04:40 06/01/17 04:40 Diabetes panel 06/01/17 Range/Units 04:40 Sodium 139 (136-145) mEq/L Potassium 4.0 (3.5-4.5) mEq/L Chloride 107 (98-109) mEq/L Carbon Dioxide 29 (19-29) mEq/L BUN 19 (7-20) mg/dL Creatinine 0.85 (0.57-1.11) mg/dL Glucose 139 H (70-99) mg/dL Calcium 8.7 (8.6-10.8) mg/dL Calcium panel 06/01/17 Range/Units 04:40 Calcium 8.7 (8.6-10.8) mg/dL Phosphorus 2.2 L (2.3-4.7) mg/dL Pituitary panel 06/01/17 Range/Units 04:40 Sodium 139 (136-145) mEq/L Potassium 4.0 (3.5-4.5) mEq/L Chloride 107 (98-109) mEq/L Carbon Dioxide 29 (19-29) mEq/L BUN 19 (7-20) mg/dL Creatinine 0.85 (0.57-1.11) mg/dL Glucose 139 H (70-99) mg/dL Calcium 8.7 (8.6-10.8) mg/dL Adrenal panel 06/01/17 Range/Units 04:40 Sodium 139 (136-145) mEq/L Potassium 4.0 (3.5-4.5) mEq/L Chloride 107 (98-109) mEq/L Carbon Dioxide 29 (19-29) mEq/L BUN 19 (7-20) mg/dL Creatinine 0.85 (0.57-1.11) mg/dL Glucose 139 H (70-99) mg/dL Calcium 8.7 (8.6-10.8) mg/dL - VTE Documentation of Mechanical Device: Intermittent pneumatic compression device Consult Discharge Plan - Plan Referrals: Pattie Wetzel MD [Partnered Physician] - 06/13/17 10:30 am - Attending Attestation For this encounter, I have reviewed the MEMS INTEGRATION ENGINEER or PA documentation, treatment plan, and medical decision making; and I have had face to face time with this patient. <Pattie Wetzel - Last Filed: 06/01/17 13:03> Date of Encounter: 06/01/17 - Assessment and Plan (1) S/P colectomy Current Visit: Yes Status: Acute pod #4 open sigmoidectomy for recurrent diverticulitis start clears restart home meds except azathioprine - hold 6 weeks po pain meds ambulate OOB to chair for all meals gi/dvt prophylaxis continue tpn until adequate po intake pulmonary toilet (2) Crohn's disease of colon Current Visit: Yes Status: Chronic holding azathioprine currently Qualifiers: Digestive disease complication type: without complication Qualified Code(s) : K50.10 - Crohn's disease of large intestine without complications (3) Hx of diverticulitis of colon Current Visit: Yes Status: Acute (4) Diabetes mellitus Current Visit: No Status: Chronic Qualifiers: Diabetes mellitus type: type 2 Diabetes mellitus complication status: with kidney complications Diabetes mellitus complication detail: with chronic kidney disease Diabetes mellitus assisted insulin use: without intermediate manager use Chronic kidney disease stage: stage 3 (moderate) Qualified Code(s): E11.22 - Type 2 diabetes mellitus with diabetic chronic kidney disease; N18.3 - Chronic kidney disease, stage 3 (moderate); N18.3 - Chronic kidney disease, stage 3 (moderate) (5) Hypertension Current Visit: No Status: Chronic Qualifiers: Hypertension type: essential hypertension Qualified Code(s): I10 - Essential (primary) hypertension (6) Hypothyroidism Current Visit: No Status: Chronic Qualifiers: Hypothyroidism type: unspecified Qualified Code(s): E03.9 - Hypothyroidism , unspecified (7) Morbid obesity with BMI of 40.0-44.9, adult Current Visit: No Status: Chronic (8) Unable to eat Current Visit: Yes Status: Acute Subjective Patient reports: feels better, still having pain, pain is less, voiding w/o difficulty, flatus, bowel movement, afebrile Objective Vital Signs - Last 8 Hours Temp Pulse Resp BP Pulse Ox 06/01/17 12:46 97.4 F L 63 16 144/79 99 06/01/17 07:31 98.0 F 67 16 131/75 97 Intake and Output 05/31/17 06/01/17 06/01/17 23:59 07:59 15:59 Intake Total 1150 / 1150 150 / 150 150 / 150 Output Total 0 / 0 300 / 300 Balance 1150 / 1150 -150 / -150 150 / 150 Intake: IV Fluids 1150 / 1150 150 / 150 150 / 150 0.9 % Sodium Chloride 1,000 ML 1000 / 1000 @ 110 mls/hr IVC .Q9H6M [facility] Rx# :[id number] Ofirmev 1,000 mg/100 ml 1,000 100 / 100 100 / 100 100 / 100 mg In 100 ml @ 400 mls/hr IVPB Q6H [facility] Rx#:[id number] Zosyn 3.375 GM In Dextrose 5% ( 50 / 50 50 / 50 50 / 50 ADD-[place]) 50 ML @ 12.5 mls/ hr IVPB Q8H [facility] Rx#:[id number] Oral 0 / 0 0 / 0 Output: Urine 0 / 0 250 / 250 Wound Drainage 50 / 50 Right Lower Abdomen 50 / 50 Other: Meal NPO NPO Blood Glucose* 160 162 157 - General physical appearance well developed, well nourished, no distress, obese - Eyes PERRL, normal ocular movement - ENT normal mucosa, normocephalic - Neck Neck exam: trachea midline - Respiratory normal expansion, normal respiratory effort - Cardiovascular Cardiovascular exam: Present: RRR - Abdomen Abdomen: Present: bowel sounds present, soft, tender - Incision Incision: Present: clean and dry, intact, erythema - Integumentary no growths - Neurologic CN 2-12 grossly intact - Musculoskeletal normal posture - Psychiatric oriented to time, oriented to person, oriented to place, speech is normal, memory intact - Labs 06/01/17 04:40 06/01/17 04:40 Short CBC 06/01/17 Range/Units 04:40 WBC 6.2 (4.3-11.1) K/mcL Hgb 9.7 L (11.5-15.4) g/dL Hct 30.9 L (35.3-44.9) % Plt Count 249 (140-400) K/mcL Neutrophils # 3.9 (1.6-8.9) K/mcL BMP 06/01/17 Range/Units 04:40 Sodium 139 (136-145) mEq/L Potassium 4.0 (3.5-4.5) mEq/L Chloride 107 (98-109) mEq/L Carbon Dioxide 29 (19-29) mEq/L BUN 19 (7-20) mg/dL Creatinine 0.85 (0.57-1.11) mg/dL Glucose 139 H (70-99) mg/dL Calcium 8.7 (8.6-10.8) mg/dL Vital Signs Temp Pulse Resp BP Pulse Ox 06/01/17 12:46 97.4 F L 63 16 144/79 99 06/01/17 07:31 98.0 F 67 16 131/75 97 06/01/17 03:33 98.0 F 73 17 135/69 96 06/01/17 00:10 98.2 F 76 17 130/71 96 05/31/17 19:44 99.5 F 82 17 150/52 94 05/31/17 15:57 98.9 F 80 16 141/83 94 Intake and Output 05/31/17 06/01/17 06/01/17 23:59 07:59 15:59 Intake Total 1150 / 1150 150 / 150 150 / 150 Output Total 0 / 0 300 / 300 Balance 1150 / 1150 -150 / -150 150 / 150 Intake: IV Fluids 1150 / 1150 150 / 150 150 / 150 0.9 % Sodium Chloride 1,000 ML 1000 / 1000 @ 110 mls/hr IVC .Q9H6M [facility] Rx# :[id number] Ofirmev 1,000 mg/100 ml 1,000 100 / 100 100 / 100 100 / 100 mg In 100 ml @ 400 mls/hr IVPB Q6H [facility] Rx#:[id number] Zosyn 3.375 GM In Dextrose 5% ( 50 / 50 50 / 50 50 / 50 ADD-[place]) 50 ML @ 12.5 mls/ hr IVPB Q8H [facility] Rx#:[id number] Oral 0 / 0 0 / 0 Output: Urine 0 / 0 250 / 250 Wound Drainage 50 / 50 Right Lower Abdomen 50 / 50 Other: Meal NPO NPO Blood Glucose* 160 162 157 - Attending Attestation I have personally performed a face to face evaluation on this patient. I have reviewed and agree with the care plan. History and Exam by me shows:
[2017-06-01] MEDS ORDERED: *HR* Metoprolol 5 MG/5 ML VIAL IVP PRN (11:22)
[2017-06-01] MEDS: *HR* HYDROmorphone (PF) 1 MG/ML SYRINGE IVP PRN ×3 (13:08→20:07)
[2017-06-01] MEDS: FLUoxetine 20 MG CAPSULE PO SCH (13:09)
[2017-06-01] MEDS: Isosorbide MONOnitrate (24 HR) 30 MG TAB.ER.24H PO SCH (13:09)
[2017-06-01] MEDS: *HR* Metformin 500 MG TABLET PO SCH (16:21)
[2017-06-01] MEDS: Ondansetron 4 MG/2 ML VIAL IVP PRN (16:33)
[2017-06-01] MEDS ORDERED: AMINO ACIDS 5 %/DEXTROSE 15 % 2,000 ML with MVI, adult with vitamin K 10 ML, Sodium A... IVC SCH (17:00)
[2017-06-01] MEDS: *HR* OxyCODONE/APAP 5/325 TABLET PO PRN ×2 (17:37→23:23)
[2017-06-01] MEDS: clonazePAM 0.5 MG TABLET PO SCH (20:07)
[2017-06-02] MEDS: Insulin DETEMIR 100 UNIT/ML X5UNITS SQ SCH ×3 (02:27→21:35)
[2017-06-02] MEDS: Piperacillin/Tazobactam 3.375 GM in D5% in Water 50 ML IVPB SCH ×4 (02:28→21:36)
[2017-06-02] MEDS: 0.9 % Sodium Chloride 1,000 ML IVC SCH ×2 (02:28→02:29)
[2017-06-02] MEDS: Acetaminophen IV 1,000 MG/100 ML INFUS..BTL IVPB SCH (02:29)
[2017-06-02] MEDS: *HR* HYDROmorphone (PF) 1 MG/ML SYRINGE IVP PRN ×2 (04:37→13:30)
[2017-06-02] MEDS: Ondansetron 4 MG/2 ML VIAL IVP PRN ×2 (04:37→21:34)
[2017-06-02] MEDS: *HR* Heparin 5,000 UNIT/ML VIAL SQ SCH ×2 (06:17→17:15)
[2017-06-02] MEDS: FLUoxetine 20 MG CAPSULE PO SCH (09:20)
[2017-06-02] MEDS: clonazePAM 0.5 MG TABLET PO SCH ×2 (09:21→21:35)
[2017-06-02] MEDS: *HR* Metformin 500 MG TABLET PO SCH (09:21)
[2017-06-02] MEDS: Isosorbide MONOnitrate (24 HR) 30 MG TAB.ER.24H PO SCH (09:22)
[2017-06-02] MEDS: Fenofibrate 54 MG TABLET PO SCH (09:22)
[2017-06-02] MEDS: Insulin LISPRO 300 UNITS/3 ML VIAL SQ SCH ×4 (09:22→21:36)
[2017-06-02] MEDS: Furosemide 40 MG TABLET PO SCH (09:22)
[2017-06-02] MEDS: Aspirin 81 MG TAB.CHEW PO SCH (09:22)
[2017-06-02] MEDS: *HR* OxyCODONE/APAP 5/325 TABLET PO PRN ×3 (09:30→21:34)
--- NOTE | 2017-06-02 10:59 | General Surgery Progress Note ---
Date of Encounter: 06/02/17 Time of Encounter: 10:50 - Assessment and Plan (1) Crohn's disease of colon Current Visit: Yes Status: Chronic The patient is status post sigmoid colectomy. She is having bowel movements and passing flatus. However, she does not feel well today. She has general malaise and nausea. I am going to hold her diabetic clear liquids. Continue to treat her nausea aggressively. Qualifiers: Digestive disease complication type: without complication Qualified Code(s) : K50.10 - Crohn's disease of large intestine without complications Subjective Narrative: The patient does not feel very well today. She is passing flatus and having bowel movements. She has general malaise and nausea. She has not had any vomiting. She was started on clear liquids yesterday and we were hopeful to advance her diet today however the amount of nausea that she is having is requiring ongoing treatment and I think we should hold her volume restricted clear liquids for today. Her incision is clean and dry. Objective Vital Signs - Last 8 Hours Temp Pulse Resp BP Pulse Ox 06/02/17 08:05 98.4 F 76 16 129/63 91 06/02/17 04:25 98.2 F 68 18 129/69 92 Intake and Output 06/01/17 06/02/17 06/02/17 23:59 07:59 15:59 Intake Total 305 / 305 50 / 50 240 / 240 Output Total 115 / 115 25 / 25 70 / 70 Balance 190 / 190 25 / 25 170 / 170 Intake: IV Fluids 305 / 305 50 / 50 Zosyn 3.375 GM In Dextrose 5% ( 50 / 50 50 / 50 ADD-[place]) 50 ML @ 12.5 mls/ hr IVPB Q8H [facility] Rx#:[id number] Potassium Phosphate 22 MEQ In 0 255 / 255 .9 % Sodium Chloride 250 ML @ 40 mls/hr IVPB ONCE ONE Rx#: [id number] Oral 0 / 0 0 / 0 240 / 240 Output: Urine 0 / 0 0 / 0 Wound Drainage 115 / 115 25 / 25 70 / 70 Right Lower Abdomen 115 / 115 25 / 25 70 / 70 Other: Meal Clear Stool Size Moderate Stool Consistency loose liquid # Voids 1 # Bowel Movements 1 0 Weight 102.512 kg Blood Glucose* 152 198 Patient Weight 06/02/17 23:59 Weight 102.512 kg - General physical appearance obese - Respiratory normal expansion, normal respiratory effort, clear to percussion, clear to auscultation - Cardiovascular Cardiovascular exam: Present: RRR, no murmurs/rubs/gallops - Abdomen Abdomen: Present: bowel sounds present, non tender, distended (Slightly distended) - Incision Incision: Present: clean and dry - Neurologic normal coordination, normal sensation - Psychiatric oriented to time, oriented to person, oriented to place, speech is normal, memory intact - Labs 06/01/17 04:40 06/01/17 04:40 - VTE Documentation of Mechanical Device: Intermittent pneumatic compression device Consult Discharge Plan - Plan Referrals: Pattie Wetzel MD [Partnered Physician] - 06/13/17 10:30 am
[2017-06-02 11:46] LABS: BUN/Creatinine Ratio 24 (6-26); Blood Urea Nitrogen 22 mg/dL (7-20); Calcium 9.1 mg/dL (8.6-10.8); Carbon Dioxide 27 mEq/L (19-29); Chloride 104 mEq/L (98-109); Glucose 214 mg/dL (70-99); Magnesium 1.4 mg/dL (1.6-2.6); Osmolality,Calculated 294 (280-300); Phosphorous 2.1 mg/dL (2.3-4.7); Potassium 4.5 mEq/L (3.5-4.5); Sodium 137 mEq/L (136-145); eGFR For African Americans > 60 (> 60); eGFR For Non-African Americans > 60 (> 60)
[2017-06-02] MEDS ORDERED: *HR* Dextrose 50 % in Water (Syg) 50 ML SYRINGE IVP PRN (13:46)
[2017-06-02] MEDS ORDERED: Dextrose Gel 15 GM PO PRN ×2 (13:46)
[2017-06-02] MEDS ORDERED: D5% in Water 1,000 ML IVC PRN (13:46)
[2017-06-02] MEDS ORDERED: AMINO ACIDS 5 %/DEXTROSE 15 % 2,000 ML with MVI, adult with vitamin K 10 ML, Sodium A... IVC SCH (17:00)
[2017-06-02] MEDS ORDERED: Insulin LISPRO 300 UNITS/3 ML VIAL SQ SCH (18:00)
[2017-06-03] MEDS: Insulin LISPRO 300 UNITS/3 ML VIAL SQ SCH ×6 (00:53→21:21)
[2017-06-03] MEDS: Piperacillin/Tazobactam 3.375 GM in D5% in Water 50 ML IVPB SCH ×3 (04:42→21:21)
[2017-06-03] MEDS: *HR* OxyCODONE/APAP 5/325 TABLET PO PRN ×2 (04:48→21:20)
[2017-06-03] MEDS: *HR* Heparin 5,000 UNIT/ML VIAL SQ SCH ×2 (05:41→17:27)
[2017-06-03 06:44] LABS: BUN/Creatinine Ratio 22 (6-26); Blood Urea Nitrogen 24 mg/dL (7-20); Calcium 9.4 mg/dL (8.6-10.8); Carbon Dioxide 30 mEq/L (19-29); Chloride 99 mEq/L (98-109); Glucose 126 mg/dL (70-99); Magnesium 1.5 mg/dL (1.6-2.6); Osmolality,Calculated 298 (280-300); Potassium 3.5 mEq/L (3.5-4.5); Sodium 141 mEq/L (136-145); eGFR For African Americans > 60 (> 60); eGFR For Non-African Americans 51 (> 60)
[2017-06-03 06:45] LABS: Phosphorous 3.5 mg/dL (2.3-4.7)
[2017-06-03] MEDS: FLUoxetine 20 MG CAPSULE PO SCH (10:02)
[2017-06-03] MEDS: Insulin DETEMIR 100 UNIT/ML X5UNITS SQ SCH ×2 (10:02→21:21)
[2017-06-03] MEDS: Isosorbide MONOnitrate (24 HR) 30 MG TAB.ER.24H PO SCH (10:02)
[2017-06-03] MEDS: Fenofibrate 54 MG TABLET PO SCH (10:03)
[2017-06-03] MEDS: Aspirin 81 MG TAB.CHEW PO SCH (10:03)
[2017-06-03] MEDS: clonazePAM 0.5 MG TABLET PO SCH ×2 (10:03→21:20)
[2017-06-03] MEDS: Furosemide 40 MG TABLET PO SCH (10:03)
--- NOTE | 2017-06-03 11:24 | General Surgery Progress Note ---
Date of Encounter: 06/03/17 Time of Encounter: 11:05 - Assessment and Plan (1) Crohn's disease of colon Current Visit: Yes Status: Chronic The patient is status post sigmoid colectomy. She is having bowel movements and passing flatus. However, she does not feel well today. She has general malaise and nausea. I am going to hold her diabetic clear liquids. Continue to treat her nausea aggressively. 06/03/2017. The patient has made tremendous improvement. We will start her on full liquid diet today. I replaced her magnesium today. She shows continued improvement. Qualifiers: Digestive disease complication type: without complication Qualified Code(s) : K50.10 - Crohn's disease of large intestine without complications (2) Hypomagnesemia Current Visit: Yes Status: Resolved Magnesium levels were 1.5 today we will plan on additional replacement Subjective Narrative: The patient has made tremendous improvement compared to yesterday. She states that she has had multiple bowel movements. Her abdominal pain is gone. Her nausea is markedly improved. She asked that she receive a full liquid diet and stent of clear liquid. She felt that the salty liquids were making her more nauseated. I think this is completely reasonable. Yesterday both magnesium and phosphate were decreased and replaced. Today phosphate has normalized however magnesium is still low at 1.5 and will require replacement. We will advance her to full liquid diet. Objective Vital Signs - Last 8 Hours Temp Pulse Resp BP Pulse Ox 06/03/17 07:27 98.2 F 71 16 146/72 93 06/03/17 03:28 97.9 F 70 13 127/72 93 Intake and Output 06/02/17 06/03/17 06/03/17 23:59 07:59 15:59 Intake Total 430 / 430 50 / 50 120 / 120 Output Total 0 / 0 Balance 430 / 430 50 / 50 120 / 120 Intake: IV Fluids 310 / 310 50 / 50 Zosyn 3.375 GM In Dextrose 5% ( 50 / 50 50 / 50 ADD-[place]) 50 ML @ 12.5 mls/ hr IVPB Q8H [facility] Rx#:[id number] Sodium Phosphate 30 MMOL In 0.9 260 / 260 % Sodium Chloride 250 ML @ 42 mls/hr IVPB ONCE ONE Rx#: [id number] Oral 120 / 120 120 / 120 Output: Urine 0 / 0 Wound Drainage 0 / 0 Right Lower Abdomen 0 / 0 Other: Meal Clear Clear # Voids 1 # Bowel Movements 0 Weight 98.702 kg Blood Glucose* 204 164 Patient Weight 06/03/17 23:59 Weight 98.702 kg - General physical appearance obese - Respiratory normal expansion, normal respiratory effort, clear to percussion, clear to auscultation - Cardiovascular Cardiovascular exam: Present: RRR, no murmurs/rubs/gallops - Abdomen Abdomen: Present: bowel sounds present, soft, distended - Incision Incision: Present: clean and dry - Neurologic normal coordination, normal sensation - Psychiatric oriented to time, oriented to person, oriented to place, speech is normal, memory intact - Labs 06/01/17 04:40 06/03/17 06:17 Diabetes panel 06/02/17 06/03/17 Range/Units 11:32 06:17 Sodium 137 141 (136-145) mEq/L Potassium 4.5 3.5 D (3.5-4.5) mEq/L Chloride 104 99 (98-109) mEq/L Carbon Dioxide 27 30 H (19-29) mEq/L BUN 22 H 24 H (7-20) mg/dL Creatinine 0.91 1.07 (0.57-1.11) mg/dL Glucose 214 H 126 H (70-99) mg/dL Calcium 9.1 9.4 (8.6-10.8) mg/dL Calcium panel 06/02/17 06/03/17 Range/Units 11:32 06:17 Calcium 9.1 9.4 (8.6-10.8) mg/dL Phosphorus 2.1 L 3.5 D (2.3-4.7) mg/dL Pituitary panel 06/02/17 06/03/17 Range/Units 11:32 06:17 Sodium 137 141 (136-145) mEq/L Potassium 4.5 3.5 D (3.5-4.5) mEq/L Chloride 104 99 (98-109) mEq/L Carbon Dioxide 27 30 H (19-29) mEq/L BUN 22 H 24 H (7-20) mg/dL Creatinine 0.91 1.07 (0.57-1.11) mg/dL Glucose 214 H 126 H (70-99) mg/dL Calcium 9.1 9.4 (8.6-10.8) mg/dL Adrenal panel 06/02/17 06/03/17 Range/Units 11:32 06:17 Sodium 137 141 (136-145) mEq/L Potassium 4.5 3.5 D (3.5-4.5) mEq/L Chloride 104 99 (98-109) mEq/L Carbon Dioxide 27 30 H (19-29) mEq/L BUN 22 H 24 H (7-20) mg/dL Creatinine 0.91 1.07 (0.57-1.11) mg/dL Glucose 214 H 126 H (70-99) mg/dL Calcium 9.1 9.4 (8.6-10.8) mg/dL - VTE Documentation of Mechanical Device: Intermittent pneumatic compression device Consult Discharge Plan - Plan Referrals: Pattie Wetzel MD [Partnered Physician] - 06/13/17 10:30 am
[2017-06-03] MEDS: *HR* HYDROmorphone (PF) 1 MG/ML SYRINGE IVP PRN (15:17)
[2017-06-03] MEDS: Ondansetron 4 MG/2 ML VIAL IVP PRN (15:17)
[2017-06-03] MEDS ORDERED: AMINO ACIDS 5 %/DEXTROSE 15 % 2,000 ML with MVI, adult with vitamin K 10 ML, Sodium A... IVC SCH (17:00)
[2017-06-04] MEDS: Insulin LISPRO 300 UNITS/3 ML VIAL SQ SCH ×6 (00:46→20:30)
[2017-06-04] MEDS: *HR* OxyCODONE/APAP 5/325 TABLET PO PRN ×3 (04:30→20:29)
[2017-06-04] MEDS: Ondansetron 4 MG/2 ML VIAL IVP PRN ×3 (04:30→20:40)
[2017-06-04] MEDS: Piperacillin/Tazobactam 3.375 GM in D5% in Water 50 ML IVPB SCH (05:03)
[2017-06-04 05:24] LABS: Calcium 10.1 mg/dL (8.6-10.8); Phosphorous 3.9 mg/dL (2.3-4.7); Potassium 3.8 mEq/L (3.5-4.5)
[2017-06-04] MEDS: *HR* Heparin 5,000 UNIT/ML VIAL SQ SCH ×2 (06:16→17:27)
[2017-06-04] MEDS: clonazePAM 0.5 MG TABLET PO SCH ×2 (07:43→20:29)
[2017-06-04] MEDS: Aspirin 81 MG TAB.CHEW PO SCH (07:43)
[2017-06-04] MEDS: Isosorbide MONOnitrate (24 HR) 30 MG TAB.ER.24H PO SCH (07:43)
[2017-06-04] MEDS: Furosemide 40 MG TABLET PO SCH (07:43)
[2017-06-04] MEDS: FLUoxetine 20 MG CAPSULE PO SCH (07:45)
[2017-06-04] MEDS: Fenofibrate 54 MG TABLET PO SCH (07:46)
[2017-06-04] MEDS: Insulin DETEMIR 100 UNIT/ML X5UNITS SQ SCH ×2 (08:40→20:30)
[2017-06-04 10:42] LABS: Basophils # 0.1 K/mcL (0.0-0.2); Basophils % 0.5 %; Eosinophils # 0.6 K/mcL (0.0-0.6); Eosinophils % 5.3 %; Hematocrit 34.5 % (35.3-44.9); Immature Granulocytes % 1.4 % (0-4); Lymphocytes # 1.2 K/mcL (0.6-4.6); Lymphocytes % 11.8 %; Mean Corpuscular HGB Conc 32.8 g/dL (31.6-35.5); Mean Corpuscular Hemoglobin 28.1 pg (28.0-33.3); Mean Corpuscular Volume 85.8 fL (83.0-100.0); Mean Platelet Volume 9.2 fL (9.4-12.4); Monocytes # 1.1 K/mcL (0.0-1.3); Monocytes % 10.7 %; Neutrophils # 7.4 K/mcL (1.6-8.9); Platelet Count 391 K/mcL (140-400); Red Blood Count 4.02 M/mcL (3.82-4.97); Red Cell Distribution Width 14.6 % (11.5-14.5); Segmented Neutrophils % 70.3 %
[2017-06-04 10:43] LABS: Hemoglobin 11.3 g/dL (11.5-15.4)
--- NOTE | 2017-06-04 10:58 | General Surgery Progress Note ---
Date of Encounter: 06/04/17 Time of Encounter: 10:56 - Assessment and Plan (1) S/P colectomy Current Visit: Yes Status: Acute pod #7 open sigmoidectomy for recurrent diverticulitis npo ok icechips restart home meds except azathioprine - hold 6 weeks po pain meds ambulate OOB to chair for all meals gi/dvt prophylaxis continue tpn until adequate po intake pulmonary toilet (2) Crohn's disease of colon Current Visit: Yes Status: Chronic holding azathioprine currently Qualifiers: Digestive disease complication type: without complication Qualified Code(s) : K50.10 - Crohn's disease of large intestine without complications (3) Hx of diverticulitis of colon Current Visit: Yes Status: Acute (4) Diabetes mellitus Current Visit: No Status: Chronic SSI/mbs controlled Qualifiers: Diabetes mellitus type: type 2 Diabetes mellitus complication status: with kidney complications Diabetes mellitus complication detail: with chronic kidney disease Diabetes mellitus detention insulin use: without detention use Chronic kidney disease stage: stage 3 (moderate) Qualified Code(s): E11.22 - Type 2 diabetes mellitus with diabetic chronic kidney disease; N18.3 - Chronic kidney disease, stage 3 (moderate); N18.3 - Chronic kidney disease, stage 3 (moderate) (5) Hypertension Current Visit: No Status: Chronic controlled, monitor Qualifiers: Hypertension type: essential hypertension Qualified Code(s): I10 - Essential (primary) hypertension (6) Hypothyroidism Current Visit: No Status: Chronic continue synthroid Qualifiers: Hypothyroidism type: unspecified Qualified Code(s): E03.9 - Hypothyroidism , unspecified (7) Morbid obesity with BMI of 40.0-44.9, adult Current Visit: No Status: Chronic (8) Unable to eat Current Visit: Yes Status: Acute continue tpn until taking in adequate po intake, currently to nauseated for food (9) Nausea Current Visit: Yes Status: Acute continue prn antiemetics check 2 view axr still passing flatus and having bm (10) Acute kidney injury Current Visit: Yes Status: Acute monitor Cr, good Uop, continue tpn, hold lisinopril and lasix trend Cr Subjective Patient reports: still having pain, flatus, bowel movement, nausea, afebrile Objective Vital Signs - Last 8 Hours Temp Pulse Resp BP Pulse Ox 06/04/17 07:44 97.9 F 79 18 119/76 96 06/04/17 04:30 97.5 F L 84 16 109/69 92 Intake and Output 06/03/17 06/04/17 06/04/17 23:59 07:59 15:59 Intake Total 50 / 50 150 / 150 100 / 100 Output Total 835 / 835 150 / 150 0 / 0 Balance -785 / -785 0 / 0 100 / 100 Intake: IV Fluids 50 / 50 50 / 50 50 / 50 Zosyn 3.375 GM In Dextrose 5% ( 50 / 50 50 / 50 50 / 50 ADD-[place]) 50 ML @ 12.5 mls/ hr IVPB Q8H [facility] Rx#:[id number] Oral 0 / 0 100 / 100 50 / 50 Output: Urine 800 / 800 150 / 150 Wound Drainage 35 / 35 0 / 0 Right Lower Abdomen 35 / 35 0 / 0 Other: Meal Clear Breakfast Percent of Meal Consumed 0% 5% Stool Size Small Small Stool Consistency liquid loose Stool Color Brown Brown # Bowel Movements 1 1 Weight 95.1 kg Blood Glucose* 178 203 - General physical appearance well developed, well nourished, no distress, obese - Eyes PERRL, normal ocular movement - ENT normal mucosa, normocephalic - Neck Neck exam: trachea midline - Respiratory normal expansion, normal respiratory effort - Cardiovascular Cardiovascular exam: Present: RRR - Abdomen Abdomen: Present: bowel sounds present (faint), soft, tender (expected post op tenderness, pt states no worse) Additional Comments: ENEIDA with serous output - Incision Incision: Present: clean and dry, intact - Integumentary no rash, no growths - Neurologic normal sensation - Musculoskeletal normal posture - Psychiatric oriented to time, oriented to person, oriented to place, speech is normal, memory intact - Labs 06/04/17 10:33 06/04/17 05:00 Diabetes panel 06/04/17 Range/Units 05:00 Sodium 136 (136-145) mEq/L Potassium 3.8 (3.5-4.5) mEq/L Chloride 94 L (98-109) mEq/L Carbon Dioxide 31 H (19-29) mEq/L BUN 30 H (7-20) mg/dL Creatinine 1.28 H (0.57-1.11) mg/dL Glucose 129 H (70-99) mg/dL Calcium 10.1 (8.6-10.8) mg/dL Triglycerides 506 H (< 150) mg/dL Calcium panel 06/04/17 Range/Units 05:00 Calcium 10.1 (8.6-10.8) mg/dL Phosphorus 3.9 (2.3-4.7) mg/dL Pituitary panel 06/04/17 Range/Units 05:00 Sodium 136 (136-145) mEq/L Potassium 3.8 (3.5-4.5) mEq/L Chloride 94 L (98-109) mEq/L Carbon Dioxide 31 H (19-29) mEq/L BUN 30 H (7-20) mg/dL Creatinine 1.28 H (0.57-1.11) mg/dL Glucose 129 H (70-99) mg/dL Calcium 10.1 (8.6-10.8) mg/dL Adrenal panel 06/04/17 Range/Units 05:00 Sodium 136 (136-145) mEq/L Potassium 3.8 (3.5-4.5) mEq/L Chloride 94 L (98-109) mEq/L Carbon Dioxide 31 H (19-29) mEq/L BUN 30 H (7-20) mg/dL Creatinine 1.28 H (0.57-1.11) mg/dL Glucose 129 H (70-99) mg/dL Calcium 10.1 (8.6-10.8) mg/dL - VTE Documentation of Mechanical Device: Intermittent pneumatic compression device Consult Discharge Plan - Plan Referrals: Pattie Wetzel MD [Partnered Physician] - 06/13/17 10:30 am
[2017-06-04] MEDS ORDERED: 0.9 % Sodium Chloride 500 ML IVC ONE ×2 (15:42→15:45)
[2017-06-04] MEDS ORDERED: Clinimix E 5%-15% SOLUTION 2,000 ML with MVI, adult with vitamin K 10 ML IVC SCH (17:00)
[2017-06-04] MEDS: 0.9 % Sodium Chloride 1,000 ML IVC SCH (17:02)
[2017-06-05] MEDS: Insulin LISPRO 300 UNITS/3 ML VIAL SQ SCH ×6 (00:11→20:53)
[2017-06-05] MEDS: *HR* Heparin 5,000 UNIT/ML VIAL SQ SCH ×2 (05:31→17:34)
[2017-06-05 06:46] LABS: Basophils # 0.1 K/mcL (0.0-0.2); Basophils % 0.5 %; Eosinophils # 0.6 K/mcL (0.0-0.6); Eosinophils % 5.3 %; Hematocrit 36.7 % (35.3-44.9); Hemoglobin 11.9 g/dL (11.5-15.4); Immature Granulocytes % 1.5 % (0-4); Lymphocytes # 1.3 K/mcL (0.6-4.6); Lymphocytes % 10.5 %; Mean Corpuscular HGB Conc 32.4 g/dL (31.6-35.5); Mean Corpuscular Hemoglobin 27.8 pg (28.0-33.3); Mean Corpuscular Volume 85.7 fL (83.0-100.0); Mean Platelet Volume 9.9 fL (9.4-12.4); Monocytes # 1.2 K/mcL (0.0-1.3); Neutrophils # 8.8 K/mcL (1.6-8.9); Platelet Count 471 K/mcL (140-400); Red Blood Count 4.28 M/mcL (3.82-4.97); Red Cell Distribution Width 14.7 % (11.5-14.5); Segmented Neutrophils % 72.2 %
[2017-06-05 06:50] LABS: Magnesium 1.9 mg/dL (1.6-2.6); Phosphorous 3.9 mg/dL (2.3-4.7)
[2017-06-05 06:51] LABS: Calcium 9.9 mg/dL (8.6-10.8); Potassium 4.2 mEq/L (3.5-4.5)
--- NOTE | 2017-06-05 08:03 | General Surgery Progress Note ---
Date of Encounter: 06/05/17 Time of Encounter: 07:30 - Assessment and Plan (1) S/P colectomy Current Visit: Yes Status: Acute pod #8 open sigmoidectomy for recurrent diverticulitis ok start fulls, feels much better, thinks was gas pains restart home meds except azathioprine - hold 6 weeks po pain meds ambulate OOB to chair for all meals gi/dvt prophylaxis continue tpn until adequate po intake pulmonary toilet (2) Crohn's disease of colon Current Visit: Yes Status: Chronic holding azathioprine currently Qualifiers: Digestive disease complication type: without complication Qualified Code(s) : K50.10 - Crohn's disease of large intestine without complications (3) Hx of diverticulitis of colon Current Visit: Yes Status: Acute (4) Diabetes mellitus Current Visit: No Status: Chronic SSI/mbs controlled Qualifiers: Diabetes mellitus type: type 2 Diabetes mellitus complication status: with kidney complications Diabetes mellitus complication detail: with chronic kidney disease Diabetes mellitus terminal manager insulin use: without intermediate use Chronic kidney disease stage: stage 3 (moderate) Qualified Code(s): E11.22 - Type 2 diabetes mellitus with diabetic chronic kidney disease; N18.3 - Chronic kidney disease, stage 3 (moderate); N18.3 - Chronic kidney disease, stage 3 (moderate) (5) Hypertension Current Visit: No Status: Chronic controlled, monitor Qualifiers: Hypertension type: essential hypertension Qualified Code(s): I10 - Essential (primary) hypertension (6) Hypothyroidism Current Visit: No Status: Chronic continue synthroid Qualifiers: Hypothyroidism type: unspecified Qualified Code(s): E03.9 - Hypothyroidism , unspecified (7) Morbid obesity with BMI of 40.0-44.9, adult Current Visit: No Status: Chronic (8) Unable to eat Current Visit: Yes Status: Acute continue tpn until taking in adequate po intake, currently restarted fulls (9) Nausea Current Visit: Yes Status: Resolved continue prn antiemetics 2 view axr - normal still passing flatus and having bm (10) Acute kidney injury Current Visit: Yes Status: Acute monitor Cr, good Uop - patient reports urinating without incident, continue tpn , IVF hold lisinopril and lasix trend Cr - increased again today (11) Leukocytosis Current Visit: Yes Status: Acute check urine culture check us B/L UE - has central line and Crohns at risk for DVT check cxr to eval for pneumonia - lungs sound clear Qualifiers: Leukocytosis type: unspecified Qualified Code(s): D72.829 - Elevated white blood cell count, unspecified Subjective Patient reports: no new complaints, feels better, pain is less, tolerating liquids well, flatus, bowel movement, afebrile Objective Vital Signs - Last 8 Hours Temp Pulse Resp BP Pulse Ox 06/05/17 07:54 97.8 F 75 16 134/90 97 06/05/17 07:11 98.5 F 80 16 125/63 93 06/05/17 04:03 98.3 F 91 16 115/62 95 06/05/17 00:00 97.6 F 82 18 137/65 93 Intake and Output 06/04/17 06/04/17 06/05/17 15:59 23:59 07:59 Intake Total 100 / 100 500 / 500 0 / 0 Output Total 0 / 0 0 / 0 720 / 720 Balance 100 / 100 500 / 500 -720 / -720 Intake: IV Fluids 50 / 50 500 / 500 0.9 % Sodium Chloride 500 ML @ 500 / 500 1875 mls/hr IVC .Q16M [facility] Rx#: [id number] Zosyn 3.375 GM In Dextrose 5% ( 50 / 50 ADD-[place]) 50 ML @ 12.5 mls/ hr IVPB Q8H [facility] Rx#:[id number] Oral 50 / 50 0 / 0 0 / 0 Output: Urine 700 / 700 Wound Drainage 0 / 0 0 / 0 20 / 20 Right Lower Abdomen 0 / 0 0 / 0 / 20 Other: Meal Breakfast NPO Percent of Meal Consumed 5% 0% Stool Size Moderate Stool Consistency liquid # Voids 1 1 # Bowel Movements 1 Weight 94.6 kg Blood Glucose* 174 191 186 Patient Weight 06/05/17 23:59 Weight 94.6 kg - General physical appearance well developed, well nourished, no distress, obese - Eyes PERRL, normal ocular movement - ENT no hearing loss, normocephalic - Neck Neck exam: no lymphadectomy - Respiratory normal expansion, normal respiratory effort, clear to auscultation - Cardiovascular Cardiovascular exam: Present: RRR - Abdomen Abdomen: Present: bowel sounds present, soft, tender (minimal tenderness) Additional Comments: ENEIDA drain serous - Incision Incision: Present: clean and dry, intact - Integumentary no growths, no abnormal pigmentation - Neurologic CN 2-12 grossly intact - Musculoskeletal normal posture - Psychiatric oriented to time, oriented to person, oriented to place, speech is normal - Labs 06/05/17 05:48 06/05/17 05:48 Short CBC 06/05/17 06/04/17 Range/Units 05:48 10:33 WBC 12.1 H 10.5 D (4.3-11.1) K/mcL Hgb 11.9 11.3 L D (11.5-15.4) g/dL Hct 36.7 34.5 L (35.3-44.9) % Plt Count 471 H 391 D (140-400) K/mcL Neutrophils # 8.8 7.4 (1.6-8.9) K/mcL BMP 06/05/17 Range/Units 05:48 Sodium 135 L (136-145) mEq/L Potassium 4.2 (3.5-4.5) mEq/L Chloride 95 L (98-109) mEq/L Carbon Dioxide 27 (19-29) mEq/L BUN 39 H (7-20) mg/dL Creatinine 1.47 H (0.57-1.11) mg/dL Glucose 201 H (70-99) mg/dL Calcium 9.9 (8.6-10.8) mg/dL Vital Signs Temp Pulse Resp BP Pulse Ox 06/05/17 07:54 97.8 F 75 16 134/90 97 06/05/17 07:11 98.5 F 80 16 125/63 93 06/05/17 04:03 98.3 F 91 16 115/62 95 06/05/17 00:00 97.6 F 82 18 137/65 93 06/04/17 20:15 98.5 F 84 14 126/62 94 06/04/17 14:41 98.3 F 81 14 96/56 97 06/04/17 11:40 97.7 F 78 14 108/67 95 Intake and Output 06/04/17 06/05/17 06/05/17 23:59 07:59 15:59 Intake Total 500 / 500 0 / 0 1483 / 1483 Output Total 0 / 0 720 / 720 Balance 500 / 500 -720 / -720 1483 / 1483 Intake: IV Fluids 500 / 500 1483 / 1483 0.9 % Sodium Chloride 1,000 ML 248 / 248 @ 25 mls/hr IVC .Q24H [facility] Rx#: [id number] 0.9 % Sodium Chloride 500 ML @ 500 / 500 1875 mls/hr IVC .Q16M [facility] Rx#: [id number] Clinimix E 5%-15% SOLUTION 2, 1235 / 1235 000 ML @ 83.3 mls/hr IVC .Q24H [facility] with M.v.i. Adult 10 ml Rx# :[id number] Oral 0 / 0 0 / 0 Output: Urine 700 / 700 Wound Drainage 0 / 0 20 / 20 Right Lower Abdomen 0 / 0 20 / 20 Other: Meal NPO Percent of Meal Consumed 0% Stool Size Moderate Stool Consistency liquid # Voids 1 # Bowel Movements 1 Weight 94.6 kg Blood Glucose* 191 186 Patient Weight 06/05/17 23:59 Weight 94.6 kg - VTE Documentation of Mechanical Device: Intermittent pneumatic compression device Consult Discharge Plan - Plan Referrals: Pattie Wetzel MD [Partnered Physician] - 06/13/17 10:30 am
[2017-06-05] MEDS: Aspirin 81 MG TAB.CHEW PO SCH (08:05)
[2017-06-05] MEDS: clonazePAM 0.5 MG TABLET PO SCH ×2 (08:06→20:51)
[2017-06-05] MEDS: Isosorbide MONOnitrate (24 HR) 30 MG TAB.ER.24H PO SCH (08:06)
[2017-06-05] MEDS: FLUoxetine 20 MG CAPSULE PO SCH (08:07)
[2017-06-05] MEDS: Fenofibrate 54 MG TABLET PO SCH (08:07)
[2017-06-05] MEDS: Insulin DETEMIR 100 UNIT/ML X5UNITS SQ SCH ×2 (08:18→20:51)
[2017-06-05] MEDS ORDERED: Simethicone 80 MG TAB.CHEW PO SCH (09:00)
[2017-06-05] MEDS ORDERED: Simethicone 80 MG TAB.CHEW PO PRN (10:22)
[2017-06-05] MEDS: Ipratropium/Albuterol Neb 3 ML IH SCH ×2 (16:00→21:21)
[2017-06-05] MEDS: 0.9 % Sodium Chloride 1,000 ML IVC SCH (16:31)
[2017-06-05] MEDS ORDERED: Clinimix E 5%-15% SOLUTION 2,000 ML with MVI, adult with vitamin K 10 ML IVC SCH (17:00)
[2017-06-06] MEDS: Insulin LISPRO 300 UNITS/3 ML VIAL SQ SCH ×4 (00:07→13:33)
[2017-06-06] MEDS: Ipratropium/Albuterol Neb 3 ML IH SCH ×3 (03:45→16:23)
[2017-06-06] MEDS: *HR* Heparin 5,000 UNIT/ML VIAL SQ SCH (06:18)
[2017-06-06] MEDS: clonazePAM 0.5 MG TABLET PO SCH (09:23)
[2017-06-06] MEDS: Aspirin 81 MG TAB.CHEW PO SCH (09:23)
[2017-06-06] MEDS: Isosorbide MONOnitrate (24 HR) 30 MG TAB.ER.24H PO SCH (09:24)
[2017-06-06] MEDS: Fenofibrate 54 MG TABLET PO SCH (09:24)
[2017-06-06] MEDS: FLUoxetine 20 MG CAPSULE PO SCH (09:24)
[2017-06-06 09:28] LABS: Basophils # 0.1 K/mcL (0.0-0.2); Basophils % 0.5 %; Eosinophils # 0.6 K/mcL (0.0-0.6); Eosinophils % 5.1 %; Hematocrit 32.9 % (35.3-44.9); Hemoglobin 10.8 g/dL (11.5-15.4); Immature Granulocytes % 1.6 % (0-4); Lymphocytes # 1.3 K/mcL (0.6-4.6); Lymphocytes % 11.5 %; Mean Corpuscular HGB Conc 32.8 g/dL (31.6-35.5); Mean Corpuscular Hemoglobin 28.1 pg (28.0-33.3); Mean Corpuscular Volume 85.7 fL (83.0-100.0); Mean Platelet Volume 9.9 fL (9.4-12.4); Monocytes # 1.3 K/mcL (0.0-1.3); Monocytes % 11.5 %; Neutrophils # 8.1 K/mcL (1.6-8.9); Platelet Count 444 K/mcL (140-400); Red Blood Count 3.84 M/mcL (3.82-4.97); Segmented Neutrophils % 69.8 %
[2017-06-06] MEDS: Insulin DETEMIR 100 UNIT/ML X5UNITS SQ SCH (09:33)
[2017-06-06 09:39] LABS: Calcium 9.7 mg/dL (8.6-10.8); Potassium 4.6 mEq/L (3.5-4.5)
--- NOTE | 2017-06-06 11:31 | General Surgery Progress Note ---
<Benita Haddad - Last Filed: 06/06/17 11:44> Date of Encounter: 06/06/17 Time of Encounter: 11:31 - Assessment and Plan (1) S/P colectomy Current Visit: Yes Status: Acute pod #9 open sigmoidectomy for recurrent diverticulitis Full liquid diet, advance to soft as tolerated; states "I feel great today." restart home meds except azathioprine - hold 6 weeks po pain meds ambulate in halls at least TID OOB to chair for all meals gi/dvt prophylaxis continue tpn until adequate po intake (laurynley d/c tomorrow) aggressive pulmonary toilet; will repeat CBC and CXR in am to reevaluate previous findings. If ok, expect likely d.c. to home tomorrow. Per patient her granddaughter is a WASHER ENGINEER HELPER and will manage her drain. She denies assistance needed at home. (2) Crohns disease Current Visit: No Status: Chronic holding azathioprine currently Qualifiers: Gastrointestinal tract location: small and large intestine Digestive disease complication type: unspecified complication Qualified Code(s): K50.819 - Crohn's disease of both small and large intestine with unspecified complications (3) Diabetes mellitus Current Visit: No Status: Chronic SSI/mbs controlled Qualifiers: Diabetes mellitus type: type 2 Diabetes mellitus complication status: with kidney complications Diabetes mellitus complication detail: with chronic kidney disease Diabetes mellitus dedicated intermodal truck driver insulin use: without longterm use Chronic kidney disease stage: stage 3 (moderate) Qualified Code(s): E11.22 - Type 2 diabetes mellitus with diabetic chronic kidney disease; N18.3 - Chronic kidney disease, stage 3 (moderate); N18.3 - Chronic kidney disease, stage 3 (moderate) Subjective Patient reports: no new complaints, feels better, still having pain, pain is less, tolerating liquids well, voiding w/o difficulty, flatus, bowel movement, afebrile Objective Vital Signs - Last 8 Hours Temp Pulse Resp BP Pulse Ox 06/06/17 11:06 16 94 06/06/17 07:05 98.3 F 78 16 124/76 93 06/06/17 04:10 98.7 F 72 16 122/73 94 06/06/17 03:45 17 98 Intake and Output 06/05/17 06/06/17 06/06/17 23:59 07:59 15:59 Intake Total 690.8 / 690.8 Output Total 15 1500 / 1500 Balance 675.8 / 675.8 -1500 / -1500 Intake: IV Fluids 450.8 / 450.8 0.9 % Sodium Chloride 1,000 ML 75.8 / 75.8 @ 25 mls/hr IVC .Q24H [facility] Rx#: [id number] Clinimix E 5%-15% SOLUTION 2, 375 / 375 000 ML @ 83.3 mls/hr IVC .Q24H [facility] with M.v.i. Adult 10 ml Rx# :[id number] Oral 240 / 240 Output: Urine 0 / 0 1500 / 1500 Wound Drainage 15 0 / 0 Right Lower Abdomen 15 0 / 0 Other: Stool Size Moderate Stool Consistency loose Stool Color Brown Green # Bowel Movements 2 Weight 94.98 kg Blood Glucose* 184 198 206 Patient Weight 06/06/17 23:59 Weight 94.98 kg - General physical appearance well nourished, no distress - Eyes normal ocular movement - ENT atraumatic, normocephalic - Neck Neck exam: trachea midline, no venous distension - Respiratory normal expansion, normal respiratory effort, clear to auscultation - Cardiovascular Cardiovascular exam: Present: RRR, distant heart sounds, no murmurs/rubs/gallops - Abdomen Abdomen: Present: bowel sounds present, soft, tender (Expected postoperative), wound (Small amount of drainage in the ENEIDA) Hernia: none - Incision Incision: Present: clean and dry, intact - Integumentary no abnormal pigmentation - Neurologic normal coordination, normal sensation - Musculoskeletal normal gait, normal posture - Psychiatric oriented to time, oriented to person, oriented to place, speech is normal, memory intact - Labs 06/06/17 09:14 06/06/17 09:14 Diabetes panel 06/06/17 Range/Units 09:14 Sodium 133 L (136-145) mEq/L Potassium 4.6 H (3.5-4.5) mEq/L Chloride 98 (98-109) mEq/L Carbon Dioxide 23 (19-29) mEq/L BUN 46 H (7-20) mg/dL Creatinine 1.35 H (0.57-1.11) mg/dL Glucose 224 H (70-99) mg/dL Calcium 9.7 (8.6-10.8) mg/dL Calcium panel 11/22/17 Range/Units 09:14 Calcium 9.7 (8.6-10.8) mg/dL Pituitary panel 06/06/17 Range/Units 09:14 Sodium 133 L (136-145) mEq/L Potassium 4.6 H (3.5-4.5) mEq/L Chloride 98 (98-109) mEq/L Carbon Dioxide 23 (19-29) mEq/L BUN 46 H (7-20) mg/dL Creatinine 1.35 H (0.57-1.11) mg/dL Glucose 224 H (70-99) mg/dL Calcium 9.7 (8.6-10.8) mg/dL Adrenal panel 06/06/17 Range/Units 09:14 Sodium 133 L (136-145) mEq/L Potassium 4.6 H (3.5-4.5) mEq/L Chloride 98 (98-109) mEq/L Carbon Dioxide 23 (19-29) mEq/L BUN 46 H (7-20) mg/dL Creatinine 1.35 H (0.57-1.11) mg/dL Glucose 224 H (70-99) mg/dL Calcium 9.7 (8.6-10.8) mg/dL - VTE Documentation of Mechanical Device: Intermittent pneumatic compression device Consult Discharge Plan - Plan Instructions: Colectomy (DC) Additional Instructions: General Surgical Discharge Instructions 1. No pushing, pulling, or lifting greater than 15 lbs for two weeks. 2. You may shower beginning today, but no tub baths, soaking, or swimming for 2 weeks. 3. You may resume driving when you are off narcotics and are safe to react in a car. 4. Take narcotics as directed. Do not take more narcotics then directed and do not share your narcotics with any other person. Do not drink alcohol while on narcotics. 5. Take stool softeners (Colace) or a water based laxative (Miralax) while taking narcotics. You may hold for loose stools. 6. Report any fevers greater than 100.5F, increase abdominal discomfort, drainage that looks like pus, increased redness or pain at the surgical site, or any vomiting. 7. Report any pain in the calves, shortness of breath, or rapid heartbeat. 8. Follow-up in the office as directed. 9. If you were prescribed antibiotics, do not stop them without talking to your provider. 10. keep ENEIDA drain site covered with 4x4 gauze and tape or large bandaid until wound healed, change daily, remove bandage/bandaid for showers 11. Record drainage and bring with you to your follow-up appointment 12. Obtain your Chest x-ray prior to your appointment with Dr. Wetzel 13. Restart lisinopril/HCTZ in 2 days 14. check Cr (lab work) in 3 days Do Not Take Your Azathioprine for 6 weeks after surgery Referrals: Pattei Wetzel MD [Partnered Physician] - 06/13/17 10:30 am Prescriptions: OxyCODONE/APAP 5/325 [Percocet 5/325 MG] 1 each PO Q6H PRN #28 tablet PRN Reason: Moderate Pain <Pattie Wetzel - Last Filed: 06/06/17 15:57> Date of Encounter: 06/06/17 - Assessment and Plan (1) S/P colectomy Current Visit: Yes Status: Acute (2) Crohn's disease of colon Current Visit: Yes Status: Chronic Qualifiers: Digestive disease complication type: without complication Qualified Code(s) : K50.10 - Crohn's disease of large intestine without complications (3) Hx of diverticulitis of colon Current Visit: Yes Status: Acute (4) Diabetes mellitus Current Visit: No Status: Chronic Qualifiers: Diabetes mellitus type: type 2 Diabetes mellitus complication status: with kidney complications Diabetes mellitus complication detail: with chronic kidney disease Diabetes mellitus dedicated intermodal truck driver insulin use: without dedicated intermodal truck driver use Chronic kidney disease stage: stage 3 (moderate) Qualified Code(s): E11.22 - Type 2 diabetes mellitus with diabetic chronic kidney disease; N18.3 - Chronic kidney disease, stage 3 (moderate); N18.3 - Chronic kidney disease, stage 3 (moderate) (5) Hypertension Current Visit: No Status: Chronic holding lisinopril/HCTZ due to AVERY Qualifiers: Hypertension type: essential hypertension Qualified Code(s): I10 - Essential (primary) hypertension (6) Hypothyroidism Current Visit: No Status: Chronic Qualifiers: Hypothyroidism type: unspecified Qualified Code(s): E03.9 - Hypothyroidism , unspecified (7) Morbid obesity with BMI of 40.0-44.9, adult Current Visit: No Status: Chronic (8) Nausea Current Visit: Yes Status: Resolved (9) Acute kidney injury Current Visit: Yes Status: Acute improving, pt appears to be back to baseline Subjective Patient reports: feels better, still having pain, pain is less, tolerating a regular diet, voiding w/o difficulty, flatus, bowel movement Objective Vital Signs - Last 8 Hours Temp Pulse Resp BP Pulse Ox 06/06/17 11:44 98.6 F 86 15 123/66 94 06/06/17 11:06 16 94 Intake and Output 06/05/17 06/06/17 06/06/17 23:59 07:59 15:59 Intake Total 690.8 / 690.8 Output Total 1500 / 1500 900 / 900 Balance 675.8 / 675.8 -1500 / -1500 -900 / -900 Intake: IV Fluids 450.8 / 450.8 0.9 % Sodium Chloride 1,000 ML 75.8 / 75.8 @ 25 mls/hr IVC .Q24H [facility] Rx#: [id number] Clinimix E 5%-15% SOLUTION 2, 375 / 375 000 ML @ 83.3 mls/hr IVC .Q24H [facility] with M.v.i. Adult 10 ml Rx# :[id number] Oral 240 / 240 Output: Urine 0 / 0 1500 / 1500 900 / 900 Wound Drainage 0 / 0 Right Lower Abdomen 15 0 / 0 Other: Stool Size Moderate Small Stool Consistency loose loose soft Stool Color Brown Brown Green # Bowel Movements 2 Weight 94.98 kg Blood Glucose* 184 198 196 Patient Weight 06/06/17 23:59 Weight 94.98 kg - General physical appearance well nourished, no distress, obese - Eyes normal ocular movement - ENT normal mucosa, normocephalic - Respiratory normal expansion, clear to auscultation - Cardiovascular Cardiovascular exam: Present: RRR - Abdomen Abdomen: Present: bowel sounds present, soft, tender - Incision Incision: Present: clean and dry, intact - Integumentary no abnormal pigmentation - Neurologic normal coordination, normal sensation - Musculoskeletal normal posture - Psychiatric oriented to time, oriented to person, oriented to place, speech is normal, memory intact - Labs 06/06/17 09:14 06/06/17 09:14 Diabetes panel 06/06/17 Range/Units 09:14 Sodium 133 L (136-145) mEq/L Potassium 4.6 H (3.5-4.5) mEq/L Chloride 98 (98-109) mEq/L Carbon Dioxide 23 (19-29) mEq/L BUN 46 H (7-20) mg/dL Creatinine 1.35 H (0.57-1.11) mg/dL Glucose 224 H (70-99) mg/dL Calcium 9.7 (8.6-10.8) mg/dL Calcium panel 06/06/17 Range/Units 09:14 Calcium 9.7 (8.6-10.8) mg/dL Pituitary panel 06/06/17 Range/Units 09:14 Sodium 133 L (136-145) mEq/L Potassium 4.6 H (3.5-4.5) mEq/L Chloride 98 (98-109) mEq/L Carbon Dioxide 23 (19-29) mEq/L BUN 46 H (7-20) mg/dL Creatinine 1.35 H (0.57-1.11) mg/dL Glucose 224 H (70-99) mg/dL Calcium 9.7 (8.6-10.8) mg/dL Adrenal panel 06/06/17 Range/Units 09:14 Sodium 133 L (136-145) mEq/L Potassium 4.6 H (3.5-4.5) mEq/L Chloride 98 (98-109) mEq/L Carbon Dioxide 23 (19-29) mEq/L BUN 46 H (7-20) mg/dL Creatinine 1.35 H (0.57-1.11) mg/dL Glucose 224 H (70-99) mg/dL Calcium 9.7 (8.6-10.8) mg/dL - Attending Attestation I have personally performed a face to face evaluation on this patient. I have reviewed and agree with the care plan. History and Exam by me shows:
[2017-06-06 11:52] VITALS: BP 123/66
--- NOTE | 2017-06-06 12:41 | Discharge Summary ---
<Pattie Wetzel - Last Filed: 06/06/17 15:39> Date of Encounter: 06/06/17 - Discharge Diagnosis (1) S/P colectomy Priority: Secondary Status: Acute (2) Crohn's disease of colon Priority: Primary Status: Chronic Qualifiers: Digestive disease complication type: without complication Qualified Code(s) : K50.10 - Crohn's disease of large intestine without complications (3) Hx of diverticulitis of colon Priority: Secondary Status: Acute (4) Diabetes mellitus Priority: Secondary Status: Chronic Qualifiers: Diabetes mellitus type: type 2 Diabetes mellitus complication status: with kidney complications Diabetes mellitus complication detail: with chronic kidney disease Diabetes mellitus mcc insulin use: without vermin exterminator use Chronic kidney disease stage: stage 3 (moderate) Qualified Code(s): E11.22 - Type 2 diabetes mellitus with diabetic chronic kidney disease; N18.3 - Chronic kidney disease, stage 3 (moderate); N18.3 - Chronic kidney disease, stage 3 (moderate) (5) Hypertension Priority: Secondary Status: Chronic Qualifiers: Hypertension type: essential hypertension Qualified Code(s): I10 - Essential (primary) hypertension (6) Hypothyroidism Priority: Secondary Status: Chronic Qualifiers: Hypothyroidism type: unspecified Qualified Code(s): E03.9 - Hypothyroidism , unspecified (7) Morbid obesity with BMI of 40.0-44.9, adult Priority: Secondary Status: Chronic (8) Unable to eat Status: Acute (9) Nausea Priority: Secondary Status: Resolved (10) Acute kidney injury Priority: Secondary Status: Acute (11) Leukocytosis Priority: Secondary Status: Acute Qualifiers: Leukocytosis type: unspecified Qualified Code(s): D72.829 - Elevated white blood cell count, unspecified - Discharge Medications Prescriptions: OxyCODONE/APAP 5/325 [Percocet 5/325 MG] 1 each PO Q6H PRN #28 tablet PRN Reason: Moderate Pain Home Medications: Aspirin 81 mg PO DAILY 03/15/15 [History] FLUoxetine HCl [Prozac] 40 mg PO DAILY 03/15/15 [History] Fenofibrate [Tricor] 54 mg PO DAILY 03/15/15 [History] Levothyroxine [Synthroid] 150 mcg PO DAILY 03/15/15 [History] Metoprolol [Lopressor] 12.5 mg PO BID 03/15/15 [History] Pantoprazole Sodium [Protonix] 40 mg PO DAILY 03/15/15 [History] Albuterol Sulfate [Albuterol Inhaler] 2 puff IH Q4HR PRN 05/28/17 [History] Clopidogrel [Plavix] 75 mg PO DAILY 05/28/17 [History] Ergocalciferol (VITAMIN D2) [Vitamin D2] 50,000 unit PO TH 05/28/17 [History] Ferrous Gluconate 324 mg PO DAILY 05/28/17 [History] Furosemide [Lasix] 40 mg PO DAILY 05/28/17 [History] Insulin ASPART [NovoLOG] 0 unit SQ TIDWM 05/28/17 [History] Insulin Glargine [Lantus] 45 unit SQ BID 05/28/17 [History] Isosorbide MONOnitrate (24 HR) [Imdur] 30 mg PO DAILY 05/28/17 [History] Nitroglycerin [Nitrostat] 0.4 mg SL AD PRN 05/28/17 [History] Potassium Chloride [K-Tab ER] 20 meq PO DAILY 05/28/17 [History] clonazePAM [Klonopin] 0.5 mg PO BID 05/28/17 [History] metFORMIN [Glucophage] 1,000 mg PO BIDWM 05/28/17 [History] OxyCODONE/APAP 5/325 [Percocet 5/325 MG] 1 each PO Q6H PRN #28 tablet 06/06/17 [ Rx] Allergies/Adverse Reactions: 3 Allergy/AdvReac Type Severity Reaction Status Date / Time NSAIDS (Non-Steroidal Allergy Gastrointestinal Verified 05/29/17 16:58 Anti-Inflamma Upset atorvastatin [From Lipitor] AdvReac Weakness Verified 05/28/17 21:16 General Surgery Exam Initial Vital Signs Temp Pulse Resp BP Pulse Ox 97.8 F 96 18 132/73 98 05/27/17 07:37 05/27/17 07:37 05/27/17 07:37 05/27/17 07:37 05/27/17 07:37 - General physical appearance well developed, well nourished, no distress - Eyes PERRL, normal ocular movement - ENT normal mucosa, normocephalic - Neck trachea midline - Respiratory normal expansion, clear to auscultation - Cardiovascular Cardiovascular exam: Present: RRR - Abdomen Abdomen general surgery: Present: bowel sounds present, soft, tender (Expected postoperative tenderness, minimal). Absent: guarding, rebound - Incision Incision: Present: clean and dry, intact - Integumentary Integumentary general surgery: Present: warm and dry, no abnormal pigmentation - Neurologic Present: CN 2-12 grossly intact - Musculoskeletal Present: normal posture - Psychiatric Psychiatric general surgery: Present: A&Ox3, speech is normal Date of admission: 05/27/17 10:05 Primary care physician: Lakisha James CNP Consults: 05/28/17 14:36 Consult to Nutrition [CONS] Routine Comment: Total fluid rate 110ml/hour (MIV + TPN) Consulting Provider: NUTRITION Reason for Dietary Consult: TPN Start and Manage - Patient Status Disposition: Home, Self-Care Condition: Good - Ambulatory Orders Ambulatory Orders: XR chest 2V [XR] Time Frame: 06/13/17, Facility: [facility], Location: Radiology - Discharge Instructions Instructions: Colectomy (DC) Follow Up With: Pattie Wetzel MD [Partnered Physician] - 06/13/17 10:30 am Additional Instructions: General Surgical Discharge Instructions 1. No pushing, pulling, or lifting greater than 15 lbs for two weeks. 2. You may shower beginning today, but no tub baths, soaking, or swimming for 2 weeks. 3. You may resume driving when you are off narcotics and are safe to react in a car. 4. Take narcotics as directed. Do not take more narcotics then directed and do not share your narcotics with any other person. Do not drink alcohol while on narcotics. 5. Take stool softeners (Colace) or a water based laxative (Miralax) while taking narcotics. You may hold for loose stools. 6. Report any fevers greater than 100.5F, increase abdominal discomfort, drainage that looks like pus, increased redness or pain at the surgical site, or any vomiting. 7. Report any pain in the calves, shortness of breath, or rapid heartbeat. 8. Follow-up in the office as directed. 9. If you were prescribed antibiotics, do not stop them without talking to your provider. 10. keep ENEIDA drain site covered with 4x4 gauze and tape or large bandaid until wound healed, change daily, remove bandage/bandaid for showers 11. Record drainage and bring with you to your follow-up appointment 12. Obtain your Chest x-ray prior to your appointment with Dr. Wetzel 13. Restart lisinopril/HCTZ in 2 days 14. check Cr (lab work) in 3 days Do Not Take Your Azathioprine for 6 weeks after surgery - Hospital Course Hospital course: Ms. Marks is a 66 year old female who had multiple recurrent episodes of diverticulitis over the last several years. She was admitted 05/28/2017 after surgery, open sigmoid colectomy. Postop course was essentially uneventful. After return of bowel function and NG tube removal as well as [place] catheter removal she was started on a clear liquid diet. She did experience a day or 2 of nausea and abdominal pain for which her diet was held but once that resolved she restarted her clears and advanced to a soft diet which she tolerated. ENEIDA drain was pulled before discharge and had serous fluid only. She was up ambulating well having appropriate bowel and bladder function. During her hospital course she was maintained on TPN until adequate by mouth intake. She was discharged home in stable condition. Restarted on her home medication except for her azathioprine. She did have an acute kidney injury during her hospital course and her lisinopril/hydrochlorothiazide was held and her blood pressure was within normal limits. - Time Spent with Patient Total time spent providing and/or coordinating discharge services: Labs on day of discharge: Labs from last 24 hours 06/06/17 06/06/17 06/06/17 11:48 09:14 09:14 WBC 11.6 H RBC 3.84 Hgb 10.8 L Hct 32.9 L MCV 85.7 MCH 28.1 MCHC 32.8 RDW 15.0 H Plt Count 444 H MPV 9.9 Immature Gran % 1.6 Seg Neutrophils % 69.8 Lymphocytes % 11.5 Monocytes % 11.5 Eosinophils % 5.1 Basophils % 0.5 Neutrophils # 8.1 Lymphocytes # 1.3 Monocytes # 1.3 Eosinophils # 0.6 Basophils # 0.1 Sodium 133 L Potassium 4.6 H Chloride 98 Carbon Dioxide 23 BUN 46 H Creatinine 1.35 H Est GFR ( Amer) 48 L Est GFR (Non-Af Amer) 39 L BUN/Creatinine Ratio 34 H Glucose 224 H POC Glucose 196 H Calculated Osmolality 295 Calcium 9.7 06/06/17 06/06/17 06/05/17 08:25 04:08 23:54 WBC RBC Hgb Hct MCV MCH MCHC RDW Plt Count MPV Immature Gran % Seg Neutrophils % Lymphocytes % Monocytes % Eosinophils % Basophils % Neutrophils # Lymphocytes # Monocytes # Eosinophils # Basophils # Sodium Potassium Chloride Carbon Dioxide BUN Creatinine Est GFR ( Amer) Est GFR (Non-Af Amer) BUN/Creatinine Ratio Glucose POC Glucose 206 H 198 H 184 H Calculated Osmolality Calcium 06/05/17 06/05/17 20:37 16:28 WBC RBC Hgb Hct MCV MCH MCHC RDW Plt Count MPV Immature Gran % Seg Neutrophils % Lymphocytes % Monocytes % Eosinophils % Basophils % Neutrophils # Lymphocytes # Monocytes # Eosinophils # Basophils # Sodium Potassium Chloride Carbon Dioxide BUN Creatinine Est GFR ( Amer) Est GFR (Non-Af Amer) BUN/Creatinine Ratio Glucose POC Glucose 195 H 200 H Calculated Osmolality Calcium - Impressions ITS Impressions Chest X-Ray 05/28/17 13:02 IMPRESSION: The right subclavian central line appears in satisfactory position without evidence of pneumothorax. NG side hole is just below the GE junction. D/ / Matt Prakash MD / Matt Prakash MD Interpreting Provider: Matt Prakash MD Abdomen X-Ray 06/04/17 10:55 IMPRESSION: Small bowel dilatation out of proportion to the colon suggesting the possibility of a developing small bowel obstruction. D/ / Christiano Bonilla MD / Christiano Bonilla MD Interpreting Provider: Christiano Bonilla MD Chest X-Ray 06/05/17 08:00 IMPRESSION: Linear atelectasis or infiltrate in the right lung base. Follow up to resolution is suggested. D/ : / 06/05/2017 08:54:18 Debbi Brown MD / [facility] Interpreting Provider: Debbi Brown MD - Attending Attestation I have personally performed a face to face evaluation on this patient. I have reviewed and agree with the care plan. History and Exam by me shows: <Benita Haddad - Last Filed: 06/08/17 08:34> Date of Encounter: 06/08/17 Time of Encounter: 12:38 - Discharge Diagnosis (1) S/P colectomy Priority: Primary Status: Acute (2) Crohns disease Priority: Secondary Status: Chronic Qualifiers: Gastrointestinal tract location: small and large intestine Digestive disease complication type: unspecified complication Qualified Code(s): K50.819 - Crohn's disease of both small and large intestine with unspecified complications (3) Diabetes mellitus Priority: Secondary Status: Chronic Qualifiers: Diabetes mellitus type: type 2 Diabetes mellitus complication status: with kidney complications Diabetes mellitus complication detail: with chronic kidney disease Diabetes mellitus mcc insulin use: without vermin exterminator use Chronic kidney disease stage: stage 3 (moderate) Qualified Code(s): E11.22 - Type 2 diabetes mellitus with diabetic chronic kidney disease; N18.3 - Chronic kidney disease, stage 3 (moderate); N18.3 - Chronic kidney disease, stage 3 (moderate) General Surgery Exam Initial Vital Signs Temp Pulse Resp BP Pulse Ox 97.8 F 96 18 132/73 98 05/27/17 07:37 05/27/17 07:37 05/27/17 07:37 05/27/17 07:37 05/27/17 07:37 - General physical appearance well developed, well nourished, no distress - Neck no masses, no bruits, trachea midline, no lymphadectomy, no venous distension - Respiratory normal expansion, normal respiratory effort, clear to auscultation - Cardiovascular Cardiovascular exam: Present: RRR, distant heart sounds - Abdomen Abdomen general surgery: Present: bowel sounds present, soft, tender (Expecte dpostoperative) - Incision Incision: Present: clean and dry, intact - Integumentary Integumentary general surgery: Present: warm and dry, no abnormal pigmentation - Neurologic Present: CN 2-12 grossly intact, normal coordination, normal sensation - Musculoskeletal Present: normal gait, normal posture - Psychiatric Psychiatric general surgery: Present: A&Ox3, appropriate, oriented to person, oriented to place, oriented to time, speech is normal, memory intact Date of admission: 05/27/17 10:05 Primary care physician: Lakisha James CNP Consults: 05/28/17 14:36 Consult to Nutrition [CONS] Routine Comment: Total fluid rate 110ml/hour (MIV + TPN) Consulting Provider: NUTRITION Reason for Dietary Consult: TPN Start and Manage Discharging clinician: Pattie Haddad) Anticipated date of discharge: 06/06/17 - Patient Status Functional capacity at discharge: independent ambulation Overall status at discharge: patient is progressing back to baseline - Diet and Activity Activity: increase activity as tolerated, resume usual activities as tolerated Diet: diabetic diet - Hospital Course Hospital course: Ms. Marks is a 66 year old female Late entry: Patient was advised to hold lisinopril and HCTz until follow up appointment as well as hold her Crohn's medications. - Time Spent with Patient Total time spent providing and/or coordinating discharge services: Labs on day of discharge: Labs from last 24 hours 06/06/17 06/06/17 06/06/17 11:48 09:14 09:14 WBC 11.6 H RBC 3.84 Hgb 10.8 L Hct 32.9 L MCV 85.7 MCH 28.1 MCHC 32.8 RDW 15.0 H Plt Count 444 H MPV 9.9 Immature Gran % 1.6 Seg Neutrophils % 69.8 Lymphocytes % 11.5 Monocytes % 11.5 Eosinophils % 5.1 Basophils % 0.5 Neutrophils # 8.1 Lymphocytes # 1.3 Monocytes # 1.3 Eosinophils # 0.6 Basophils # 0.1 Sodium 133 L Potassium 4.6 H Chloride 98 Carbon Dioxide 23 BUN 46 H Creatinine 1.35 H Est GFR ( Amer) 48 L Est GFR (Non-Af Amer) 39 L BUN/Creatinine Ratio 34 H Glucose 224 H POC Glucose 196 H Calculated Osmolality 295 Calcium 9.7 06/06/17 06/06/17 06/05/17 08:25 04:08 23:54 WBC RBC Hgb Hct MCV MCH MCHC RDW Plt Count MPV Immature Gran % Seg Neutrophils % Lymphocytes % Monocytes % Eosinophils % Basophils % Neutrophils # Lymphocytes # Monocytes # Eosinophils # Basophils # Sodium Potassium Chloride Carbon Dioxide BUN Creatinine Est GFR ( Amer) Est GFR (Non-Af Amer) BUN/Creatinine Ratio Glucose POC Glucose 206 H 198 H 184 H Calculated Osmolality Calcium 06/05/17 06/05/17 20:37 16:28 WBC RBC Hgb Hct MCV MCH MCHC RDW Plt Count MPV Immature Gran % Seg Neutrophils % Lymphocytes % Monocytes % Eosinophils % Basophils % Neutrophils # Lymphocytes # Monocytes # Eosinophils # Basophils # Sodium Potassium Chloride Carbon Dioxide BUN Creatinine Est GFR ( Amer) Est GFR (Non-Af Amer) BUN/Creatinine Ratio Glucose POC Glucose 195 H 200 H Calculated Osmolality Calcium - Impressions ITS Impressions Chest X-Ray 05/28/17 13:02 IMPRESSION: The right subclavian central line appears in satisfactory position without evidence of pneumothorax. NG side hole is just below the GE junction. D/ / Matt Prakash MD / Matt Prakash MD Interpreting Provider: Matt Prakash MD Abdomen X-Ray 06/04/17 10:55 IMPRESSION: Small bowel dilatation out of proportion to the colon suggesting the possibility of a developing small bowel obstruction. D/ / Christiano Bonilla MD / Christiano Bonilla MD Interpreting Provider: Christiano Bonilla MD Chest X-Ray 06/05/17 08:00 IMPRESSION: Linear atelectasis or infiltrate in the right lung base. Follow up to resolution is suggested. D/ /05/2017 08:54:18 Debbi Brown MD / [facility] Interpreting Provider: Debbi Brown MD
[2017-06-06] MEDS: *HR* OxyCODONE/APAP 5/325 TABLET PO PRN (13:32)
== END 2017-06-06 17:38 | disposition home or self-care (01) | DRG 330 ==
LOC: EMEROO 07:36 → 3ANU 07:36 → SUATTDRO 10:05
PROVIDERS: ADMIT Surgery; ATTEND Surgery

== ENCOUNTER 2021-10-10 06:41 | Inpatient (IN) ==
[2021-10-10] MEDS ORDERED: CeFAZolin Syr 2,000MG/20 ML 2,000 MG/20 ML SYRINGE IVPB ONE (07:23)
[2021-10-10] MEDS ORDERED: Ringers Solution, Lactated 1,000 ML IVC SCH (07:30)
[2021-10-10] MEDS ORDERED: *HR* Rocuronium Bromide 50 MG/5 ML VIAL ONE ×3 (07:41→10:42)
[2021-10-10] MEDS ORDERED: Ondansetron 4 MG/2 ML VIAL ONE (07:41)
[2021-10-10] MEDS ORDERED: Lidocaine HCL 4 ML Topical Solution (Laryng-O-Jet Kit Sterile Pak) TP ONE (07:41)
[2021-10-10] MEDS ORDERED: *HR* FentaNYL (PF) 100 MCG/2 ML VIAL ONE ×2 (07:41→09:26)
[2021-10-10] MEDS ORDERED: *HR* Succinylcholine 200 MG/10 ML VIAL IVP ONE (07:41)
[2021-10-10] MEDS ORDERED: Lidocaine -MPF 2% 5 ML VIAL ONE (07:41)
[2021-10-10] MEDS ORDERED: *HR* Midazolam HCl 2 MG/2 ML VIAL ONE (07:42)
[2021-10-10] MEDS ORDERED: *HR* Propofol 200 MG/20 ML VIAL IVP ONE (07:42)
[2021-10-10] MEDS ORDERED: *HR* OxyCODONE Immed Rel 5 MG TABLET PO PRN (07:45)
[2021-10-10] MEDS ORDERED: *HR* HYDROmorphone PF 0.5 MG/0.5 ML SYRINGE IVP PRN (07:45)
[2021-10-10] MEDS ORDERED: Ondansetron 4 MG/2 ML VIAL IVP PRN (07:45)
[2021-10-10] MEDS ORDERED: Sugammadex Sodium 200 MG/2 ML VIAL IV ONE ×2 (10:20→12:07)
[2021-10-10] MEDS ORDERED: Insulin Human Regular 10 UNIT in 0.9 % Sodium Chloride 10 ML IV ONE (12:30)
[2021-10-10] MEDS: Promethazine 6.25 MG in Water for inj. (sterile) 20 ML IVPB PRN ×2 (12:39→13:12)
[2021-10-10] MEDS ORDERED: *HR* Metoprolol 5 MG/5 ML VIAL IVP PRN (14:11)
[2021-10-10] MEDS ORDERED: *HR* Dextrose 50 % in Water (Syg) 50 ML SYRINGE IVP PRN (14:11)
[2021-10-10] MEDS ORDERED: Dextrose 4 GM Chewable Tablets PO PRN ×2 (14:11)
[2021-10-10] MEDS ORDERED: D5% in Water 1,000 ML IVC PRN (14:11)
[2021-10-10] MEDS ORDERED: Naloxone 0.4 MG/ML INJ IVP PRN (14:11)
[2021-10-10] MEDS: Pantoprazole 40 MG VIAL IVP SCH (15:07)
[2021-10-10] MEDS: 0.9 % Sodium Chloride 1,000 ML IVC SCH (15:15)
[2021-10-10] MEDS: CeFAZolin 2 GM/100 ML BAG IVPB SCH (15:38)
[2021-10-10] MEDS: Acetaminophen IV 1,000 MG/100 ML BAG IVPB SCH ×2 (15:38→23:31)
[2021-10-10] MEDS: Insulin LISPRO 300 UNITS/3 ML VIAL SUBQ SCH (18:10)
[2021-10-10] MEDS: clonazePAM 0.5 MG TABLET PO SCH (20:31)
[2021-10-10] MEDS: Ondansetron 4 MG/2 ML VIAL IVP PRN (23:48)
[2021-10-11] MEDS: CeFAZolin 2 GM/100 ML BAG IVPB SCH ×2 (00:08→09:18)
[2021-10-11] MEDS: Acetaminophen IV 1,000 MG/100 ML BAG IVPB SCH ×2 (05:01→17:44)
[2021-10-11] MEDS: *HR* Heparin 5,000 UNIT/ML VIAL SQ SCH ×2 (05:02→17:45)
[2021-10-11 05:51] LABS: Basophils % 0.2 %; Eosinophils % 0.1 %; Hematocrit 29.1 % (35.3-44.9); Hemoglobin 9.8 g/dL (11.5-15.4); Immature Granulocytes % 0.5 % (0-4); Lymphocytes # 0.7 K/mcL (0.6-4.6); Lymphocytes % 7.1 %; Mean Corpuscular HGB Conc 33.7 g/dL (31.6-35.5); Mean Corpuscular Hemoglobin 31.2 pg (28.0-33.3); Mean Corpuscular Volume 92.7 fL (83.0-100.0); Mean Platelet Volume 9.9 fL (9.4-12.4); Monocytes # 0.9 K/mcL (0.0-1.3); Monocytes % 9.7 %; Neutrophils # 7.6 K/mcL (1.6-8.9); Platelet Count 292 K/mcL (140-400); Red Blood Count 3.14 M/mcL (3.82-4.97); Segmented Neutrophils % 82.4 %; White Blood Count 9.2 K/mcL (4.3-11.1)
[2021-10-11 06:37] LABS: Calcium 8.9 mg/dL (8.6-10.3); Potassium 4.7 mEq/L (3.5-5.1)
[2021-10-11] MEDS: clonazePAM 0.5 MG TABLET PO SCH (08:50)
[2021-10-11] MEDS: Pantoprazole 40 MG VIAL IVP SCH (08:50)
[2021-10-11] MEDS: Ondansetron 4 MG/2 ML VIAL IVP PRN (08:50)
[2021-10-11] MEDS: FLUoxetine 20 MG CAPSULE PO SCH (08:51)
[2021-10-11] MEDS: Insulin LISPRO 300 UNITS/3 ML VIAL SUBQ SCH ×4 (08:52→22:08)
[2021-10-11] MEDS ORDERED: Orphenadrine 60 MG/2 ML VIAL IVP ONE (09:17)
[2021-10-11] MEDS ORDERED: Prochlorperazine 10 MG/2 ML VIAL IVP PRN (09:17)
[2021-10-11] MEDS: 0.9 % Sodium Chloride 1,000 ML IVC SCH (10:00)
[2021-10-11] MEDS ORDERED: *HR* HYDROcodone/Acet 7.5/325 mg TABLET PO PRN (10:49)
[2021-10-11] MEDS ORDERED: 0.9 % Sodium Chloride 1,000 ML IVC SCH (11:00)
[2021-10-11] MEDS: Gabapentin 100 MG CAPSULE PO SCH ×3 (11:33→22:07)
[2021-10-11] MEDS: Insulin DETEMIR 100 UNIT/ML X5UNITS SUBQ SCH (12:11)
[2021-10-11] MEDS: Metoclopramide 10 MG/2 ML VIAL IVP SCH ×2 (12:11→17:45)
[2021-10-11] MEDS ORDERED: Scopolamine Patch 1.5 MG PATCH.TD72 TD ONE (13:11)
[2021-10-11] MEDS ORDERED: Morphine PCA 30 MG/ 30 ML 30 ML PCA.VIAL IVC PRN (13:24)
[2021-10-11] MEDS ORDERED: *HR* LORazepam 2 MG/ML VIAL IVP PRN (13:26)
[2021-10-11] MEDS: Ipratropium/Albuterol Neb 3 ML IH SCH ×2 (16:17→23:05)
[2021-10-11] MEDS ORDERED: Prochlorperazine 10 MG/2 ML VIAL IM ONE (17:14)
[2021-10-11] MEDS: methocarbamoL 500 MG TABLET PO SCH (17:45)
[2021-10-12] MEDS: Acetaminophen IV 1,000 MG/100 ML BAG IVPB SCH ×3 (01:02→15:03)
[2021-10-12] MEDS: Metoclopramide 10 MG/2 ML VIAL IVP SCH ×2 (01:03→06:06)
[2021-10-12] MEDS: methocarbamoL 500 MG TABLET PO SCH ×3 (01:03→14:50)
[2021-10-12] MEDS: Ipratropium/Albuterol Neb 3 ML IH SCH ×4 (04:37→20:10)
[2021-10-12] MEDS: *HR* Heparin 5,000 UNIT/ML VIAL SQ SCH ×2 (06:05→17:40)
[2021-10-12 07:01] LABS: Basophils % 0.2 %; Eosinophils % 0.1 %; Hematocrit 29.3 % (35.3-44.9); Hemoglobin 9.7 g/dL (11.5-15.4); Immature Granulocytes % 0.5 % (0-4); Lymphocytes # 0.8 K/mcL (0.6-4.6); Lymphocytes % 6.5 %; Mean Corpuscular HGB Conc 33.1 g/dL (31.6-35.5); Mean Corpuscular Volume 93.6 fL (83.0-100.0); Mean Platelet Volume 10.2 fL (9.4-12.4); Monocytes % 8.2 %; Platelet Count 298 K/mcL (140-400); Red Blood Count 3.13 M/mcL (3.82-4.97); Red Cell Distribution Width 14.2 % (11.5-14.5); Segmented Neutrophils % 84.5 %; White Blood Count 11.8 K/mcL (4.3-11.1)
[2021-10-12] MEDS: Pantoprazole 40 MG VIAL IVP SCH (07:48)
[2021-10-12] MEDS: Insulin LISPRO 300 UNITS/3 ML VIAL SUBQ SCH ×4 (07:51→20:42)
[2021-10-12] MEDS: Insulin DETEMIR 100 UNIT/ML X5UNITS SUBQ SCH ×2 (08:09→20:41)
[2021-10-12 08:15] LABS: Calcium 9.2 mg/dL (8.6-10.3); Potassium 4.2 mEq/L (3.5-5.1)
[2021-10-12] MEDS ORDERED: *HR* HYDROmorphone PCA *PREMADE* 20 MG/1MG/ML (20mL) PCA VIAL IVC PRN (08:38)
[2021-10-12] MEDS: FLUoxetine 20 MG CAPSULE PO SCH (09:08)
[2021-10-12] MEDS: Gabapentin 100 MG CAPSULE PO SCH ×3 (09:08→20:38)
[2021-10-12] MEDS: Metoclopramide 20 MG in 0.9 % Sodium Chloride 50 ML IVPB SCH ×2 (09:09→15:19)
[2021-10-12] MEDS: Haloperidol Lactate 5 MG/ML VIAL IVP PRN ×2 (11:10→18:08)
[2021-10-12] MEDS: 0.9 % Sodium Chloride 1,000 ML IVC SCH ×2 (11:38→18:08)
[2021-10-12 12:03] LABS: Magnesium 1.4 mg/dL (1.6-2.6); Phosphorous 2.3 mg/dL (2.7-4.5)
[2021-10-12] MEDS: CeFAZolin 2 GM/100 ML BAG IVPB SCH (16:10)
[2021-10-13] MEDS: CeFAZolin 2 GM/100 ML BAG IVPB SCH ×3 (01:05→15:39)
[2021-10-13] MEDS: methocarbamoL 500 MG TABLET PO SCH ×3 (01:06→15:44)
[2021-10-13] MEDS: Insulin LISPRO 300 UNITS/3 ML VIAL SUBQ SCH ×5 (01:41→21:57)
[2021-10-13] MEDS: Acetaminophen IV 1,000 MG/100 ML BAG IVPB SCH ×3 (01:42→15:39)
[2021-10-13] MEDS: Metoclopramide 20 MG in 0.9 % Sodium Chloride 50 ML IVPB SCH ×2 (01:43→08:31)
[2021-10-13] MEDS: Ipratropium/Albuterol Neb 3 ML IH SCH ×4 (03:17→20:20)
[2021-10-13] MEDS: 0.9 % Sodium Chloride 1,000 ML IVC SCH ×2 (06:02→15:38)
[2021-10-13] MEDS: *HR* Heparin 5,000 UNIT/ML VIAL SQ SCH ×2 (06:03→17:50)
[2021-10-13 06:58] LABS: Calcium 8.5 mg/dL (8.6-10.3)
[2021-10-13 07:21] LABS: Basophils % 0.3 %; Eosinophils # 0.2 K/mcL (0.0-0.6); Eosinophils % 2.2 %; Hematocrit 24.9 % (35.3-44.9); Hemoglobin 8.3 g/dL (11.5-15.4); Immature Granulocytes % 0.4 % (0-4); Lymphocytes # 0.8 K/mcL (0.6-4.6); Lymphocytes % 9.2 %; Mean Corpuscular HGB Conc 33.3 g/dL (31.6-35.5); Mean Corpuscular Hemoglobin 31.7 pg (28.0-33.3); Mean Platelet Volume 9.7 fL (9.4-12.4); Monocytes # 0.8 K/mcL (0.0-1.3); Monocytes % 8.8 %; Neutrophils # 7.2 K/mcL (1.6-8.9); Platelet Count 271 K/mcL (140-400); Red Blood Count 2.62 M/mcL (3.82-4.97); Red Cell Distribution Width 14.2 % (11.5-14.5); Segmented Neutrophils % 79.1 %; White Blood Count 9.1 K/mcL (4.3-11.1)
[2021-10-13] MEDS: Pantoprazole 40 MG VIAL IVP SCH (08:29)
[2021-10-13] MEDS: FLUoxetine 20 MG CAPSULE PO SCH (08:30)
[2021-10-13] MEDS: Gabapentin 100 MG CAPSULE PO SCH ×3 (08:30→21:53)
[2021-10-13] MEDS: Insulin DETEMIR 100 UNIT/ML X5UNITS SUBQ SCH ×2 (08:33→21:56)
[2021-10-13] MEDS ORDERED: Insulin LISPRO 300 UNITS/3 ML VIAL SUBQ SCH (16:30)
[2021-10-14] MEDS: methocarbamoL 500 MG TABLET PO SCH ×4 (00:21→23:59)
[2021-10-14] MEDS: Acetaminophen IV 1,000 MG/100 ML BAG IVPB SCH (00:21)
[2021-10-14] MEDS: CeFAZolin 2 GM/100 ML BAG IVPB SCH (00:47)
[2021-10-14] MEDS: 0.9 % Sodium Chloride 1,000 ML IVC SCH (01:44)
[2021-10-14 03:25] LABS: Basophils % 0.3 %; Eosinophils # 0.2 K/mcL (0.0-0.6); Eosinophils % 3.1 %; Hematocrit 24.4 % (35.3-44.9); Hemoglobin 8.2 g/dL (11.5-15.4); Immature Granulocytes % 0.7 % (0-4); Lymphocytes # 0.6 K/mcL (0.6-4.6); Lymphocytes % 7.6 %; Mean Corpuscular HGB Conc 33.6 g/dL (31.6-35.5); Mean Corpuscular Hemoglobin 31.5 pg (28.0-33.3); Mean Corpuscular Volume 93.8 fL (83.0-100.0); Mean Platelet Volume 9.7 fL (9.4-12.4); Monocytes # 0.7 K/mcL (0.0-1.3); Neutrophils # 5.8 K/mcL (1.6-8.9); Platelet Count 272 K/mcL (140-400); Red Cell Distribution Width 14.3 % (11.5-14.5); Segmented Neutrophils % 78.3 %; White Blood Count 7.4 K/mcL (4.3-11.1)
[2021-10-14 03:44] LABS: Calcium 8.4 mg/dL (8.6-10.3)
[2021-10-14 03:48] LABS: Magnesium 1.9 mg/dL (1.6-2.6); Phosphorous 2.3 mg/dL (2.7-4.5)
[2021-10-14] MEDS: Ipratropium/Albuterol Neb 3 ML IH SCH ×4 (04:08→20:01)
[2021-10-14] MEDS: *HR* Heparin 5,000 UNIT/ML VIAL SQ SCH ×2 (05:31→18:01)
[2021-10-14] MEDS ORDERED: Acetaminophen 325 MG TABLET PO PRN (08:06)
[2021-10-14] MEDS ORDERED: *HR* OxyCODONE/APAP 5/325 TABLET PO PRN (08:06)
[2021-10-14] MEDS ORDERED: FLUoxetine 20 MG CAPSULE PO SCH (09:00)
[2021-10-14] MEDS: Gabapentin 100 MG CAPSULE PO SCH ×3 (10:03→21:30)
[2021-10-14] MEDS: FLUoxetine 20 MG CAPSULE PO SCH (10:04)
[2021-10-14] MEDS: Pantoprazole 40 MG VIAL IVP SCH (10:05)
[2021-10-14] MEDS: Insulin LISPRO 300 UNITS/3 ML VIAL SUBQ SCH ×4 (10:07→21:25)
[2021-10-14] MEDS: Insulin DETEMIR 100 UNIT/ML X5UNITS SUBQ SCH ×2 (10:07→21:30)
[2021-10-15] MEDS: Ipratropium/Albuterol Neb 3 ML IH SCH ×3 (04:51→15:48)
[2021-10-15] MEDS: *HR* Heparin 5,000 UNIT/ML VIAL SQ SCH (05:20)
[2021-10-15 06:32] LABS: Basophils % 0.3 %; Eosinophils # 0.3 K/mcL (0.0-0.6); Eosinophils % 3.4 %; Hematocrit 24.3 % (35.3-44.9); Hemoglobin 8.1 g/dL (11.5-15.4); Immature Granulocytes % 0.5 % (0-4); Lymphocytes # 0.7 K/mcL (0.6-4.6); Lymphocytes % 9.3 %; Mean Corpuscular HGB Conc 33.3 g/dL (31.6-35.5); Mean Corpuscular Volume 93.1 fL (83.0-100.0); Mean Platelet Volume 9.5 fL (9.4-12.4); Monocytes # 0.8 K/mcL (0.0-1.3); Monocytes % 11.2 %; Neutrophils # 5.6 K/mcL (1.6-8.9); Nucleated Red Blood Cells 0.3 /100 WBC (0); Platelet Count 287 K/mcL (140-400); Red Blood Count 2.61 M/mcL (3.82-4.97); Red Cell Distribution Width 14.3 % (11.5-14.5); Segmented Neutrophils % 75.3 %; White Blood Count 7.4 K/mcL (4.3-11.1)
[2021-10-15 06:40] LABS: Calcium 8.4 mg/dL (8.6-10.3); Potassium 3.8 mEq/L (3.5-5.1)
[2021-10-15] MEDS: Pantoprazole 40 MG VIAL IVP SCH (08:05)
[2021-10-15] MEDS: FLUoxetine 20 MG CAPSULE PO SCH (08:09)
[2021-10-15] MEDS: methocarbamoL 500 MG TABLET PO SCH (08:09)
[2021-10-15] MEDS: Gabapentin 100 MG CAPSULE PO SCH (08:09)
[2021-10-15] MEDS: Insulin DETEMIR 100 UNIT/ML X5UNITS SUBQ SCH (08:10)
[2021-10-15] MEDS: Insulin LISPRO 300 UNITS/3 ML VIAL SUBQ SCH ×2 (08:10→12:20)
[2021-10-15 11:02] VITALS: O2SAT 93
[2021-10-15 15:14] VITALS: BP 117/71; PULSE 77; TEMP 98.7
== END 2021-10-15 15:25 | disposition home or self-care (01) | DRG 354 ==
LOC: SAMDAY 06:41 → 3ANU 06:41
PROVIDERS: ADMIT Surgery; ATTEND Surgery